=== PATIENT | female | born 1940 | race Caucasian/White ===

== ENCOUNTER 2018-11-01 08:35 | Inpatient (IN) ==
[2018-11-01] MEDS ORDERED: SOLU-MEDROL 125 MG IVP STA (09:10)
[2018-11-01] MEDS ORDERED: DUONEB NEB STA (09:10)
[2018-11-01] MEDS ORDERED: ZOSYN 3.375 GM 3.375 GM in SODIUM CHLORIDE 50 ML IV STA (10:30)
--- NOTE | 2018-11-01 10:33 | ED.PDOC ---
General ED Provider: Dr. EDWAR VALLADARES Chief Complaint: Shortness of Air Stated Complaint: COUGH SHORT OF AIR Time Seen by Physician: 08:45 (SEEN WITH STAFF ) Mode of Arrival: Walk-In Information Source: Patient Exam Limitations: No limitations Primary Care Provider: JAN GUERRA Nursing and Triage Documentation Reviewed and Agree: Yes Does patient meet sepsis criteria?: No System Inflammatory Response Syndrome: Not Applicable Sepsis Protocol: For patient's 13 years and over: Temp is 96.8 and below OR 101 and greater Pulse >90 BPM Resp >20/minute Acutely Altered Mental Status Are patient's symptoms suggestive of a new infection, such as: -Pneumonia -Skin, Soft Tissue -Endocarditis -UTI -Bone, Joint Infection -Implantable Device -Acute Abdominal Infection -Wound Infection -Meningitis -Blood Stream Catheter Infection -Unknown Respiratory Complaint Exam - Respiratory Complaint/Exam Onset/Duration: 1 WEEK Symptoms Are: Still present Timing: Constant Initial Severity: Mild Current Severity: Mild Location: Nose, Throat, Chest Character: Reports: Productive cough Aggravating: Reports: URI (SISTER WAS HOSPITALIZED FOR SAME ISSUE) Alleviating: Reports: Bronchodilators Associated Signs and Symptoms: Reports: Chills, URI, Nasal congestion. Denies: Rapid breathing, Dyspnea, Fever, Chest pain, Pleuritic chest pain, Wheezing, Hemoptysis, Dizziness, Calf pain, Calf swelling, Edema, Hoarseness, Sinus discomfort, Vomiting, Sore throat, Weight loss, Decreased oral intake, Increased thirst, Increased appetite, Increased urination History of Healthcare-Acquired Pneumonia: No Related Surgical History: Reports: None Pulmonary Embolism Risk Factors: None Review of Systems - Review Of Systems Constitutional: Reports: Malaise Eyes: Reports: No symptoms Ears, Nose, Mouth, Throat: Reports: No symptoms Respiratory: Reports: Cough, Short of air, Wheezing Cardiac: Reports: No symptoms GI: Reports: No symptoms : Reports: No symptoms Musculoskeletal: Reports: No symptoms Skin: Reports: No symptoms Neurological: Reports: No symptoms Endocrine: Reports: No symptoms Hematologic/Lymphatic: Reports: No symptoms All Other Systems: Reviewed and Negative Past Medical History - Past Medical History Previously Healthy: Yes Endocrine: Reports: DM 2, Dyslipidemia Cardiovascular: Reports: None Respiratory: Reports: None Hematological: Reports: None Gastrointestinal: Reports: None Genitourinary: Reports: None Neuro/Psych: Reports: None Musculoskeletal: Reports: None Cancer: Reports: None Last Menstrual Period: no - Surgical History General Surgical History: Reports: None - Family History Family History: Reports: None - Social History Smoking Status: Former smoker Hx Substance Use: No Alcohol Screening: None - Immunizations Tetanus Shot up to Date: No Physical Exam - Physical Exam Appearance: Ill-appearing Ill-appearing: Moderate Pain Distress: Mild Eyes: JOESPH, EOMI, Conjunctiva clear ENT: Ears normal, Nose normal, Oropharynx normal Respiratory: Breath sounds diminished, Rhonchi Cardiovascular: RRR, Pulses normal, No rub, No murmur GI/: Soft, Nontender, No masses, Bowel sounds normal, No Organomegaly Musculoskeletal: Normal strength, ROM intact, No edema, No calf tenderness Skin: Warm, Dry, Normal color Neurological: Sensation intact, Motor intact, Reflexes intact, Cranial nerves intact, Alert, Oriented Psychiatric: Affect appropriate, Mood appropriate Re-Evaluation - Re-Evaluation Time of Re-Evaluation: 11:00 Status: Improved Vital Signs Stable: Yes Pain Level: 0 Appearance: NAD Lungs: Clear Skin: Warm and Dry Neuro: Alert and Oriented X3 CV: RRR - Re-Evaluation Time of Re-Evaluation: 12:54 Status: Improved Vital Signs Stable: Yes Pain Level: 0 Appearance: NAD Skin: Warm and Dry Neuro: Alert and Oriented X3 CV: RRR Physician Notification - Case Discussed Physician Notified: pmd Time of Notification: 12:54 (admitt dual antibiotics and steroids per pmd ) Admit/Transition Orders Entered by ED Provider: Yes Admit To: Inpatient Critical Care Note - Critical Care Note Total Time (mins): 0 Course - Course Hematology/Chemistry: 11/01/18 09:23 11/01/18 09:23 Orders, Labs, Meds: Lab Review 11/01/18 11/01/18 11/01/18 09:23 09:23 09:23 WBC 28.96 H RBC 4.81 Hgb 13.8 Hct 43.0 MCV 89.4 MCH 28.7 MCHC 32.1 RDW Coeff of Minh 14.2 Plt Count 406 Neutrophils % (Manual) 82.0 H Band Neutrophils % 9.0 H Lymphocytes % (Manual) 7.0 L Monocytes % (Manual) 2.0 Anisocytosis Not present Puncture Site O2 Saturation ABG pH ABG pCO2 ABG pO2 ABG HCO3 ABG Total CO2 ABG Base Excess Rick Test FiO2 % Sodium 137.8 Potassium 3.98 Chloride 97.1 L Carbon Dioxide 29.7 Anion Gap 14.98 BUN 19.5 H Creatinine 0.68 Estimated GFR (MDRD) 83.00 BUN/Creatinine Ratio 28.67 Glucose 248.6 H Lactic Acid Calcium 9.41 Total Bilirubin 0.87 AST 81.2 H ALT 41.6 H Alkaline Phosphatase 207.6 H Total Creatine Kinase < 20.0 L Troponin I 0.025 Total Protein 7.73 Albumin 3.45 L Globulin 4.28 Albumin/Globulin Ratio 0.80 Procalcitonin 3.49 11/01/18 11/01/18 09:23 09:30 WBC RBC Hgb Hct MCV MCH MCHC RDW Coeff of Minh Plt Count Neutrophils % (Manual) Band Neutrophils % Lymphocytes % (Manual) Monocytes % (Manual) Anisocytosis Puncture Site L rad O2 Saturation 92.0 L ABG pH 7.443 ABG pCO2 34.8 L ABG pO2 61.0 L ABG HCO3 23.8 ABG Total CO2 25 ABG Base Excess 0 Rick Test + FiO2 % 21.0 Sodium Potassium Chloride Carbon Dioxide Anion Gap BUN Creatinine Estimated GFR (MDRD) BUN/Creatinine Ratio Glucose Lactic Acid 1.69 Calcium Total Bilirubin AST ALT Alkaline Phosphatase Total Creatine Kinase Troponin I Total Protein Albumin Globulin Albumin/Globulin Ratio Procalcitonin Orders Category Date Time Status ABG DRAW REQUEST Stat CARDIO 11/01/18 09:11 Completed EKG-(ED ONLY) Stat CARDIO 11/01/18 09:09 Completed NEBULIZER TREATMENT Stat CARDIO 11/01/18 09:10 Completed ED IV/MEDIPORT/POWERPORT .ONCE EMERGENCY 11/01/18 10:30 Active ABG Stat LAB 11/01/18 09:30 Completed BLOOD CULTURE Stat LAB 11/01/18 09:50 Received CBC W/ AUTO DIFF Stat LAB 11/01/18 09:23 Completed COMPREHENSIVE METABOLIC PANEL Stat LAB 11/01/18 09:23 Completed CREATINE KINASE Stat LAB 11/01/18 09:23 Completed LACTIC ACID Stat LAB 11/01/18 09:23 Completed MANUAL DIFFERENTIAL Stat LAB 11/01/18 09:23 Completed PROCALCITONIN Stat LAB 11/01/18 09:23 Completed TROPONIN I Stat LAB 11/01/18 09:23 Completed 0.9 % Sodium Chloride [Saline Flush] MEDS 11/01/18 10:30 Active 1 syr IVF PRN PRN Ipratropium/Albuterol Neb [Duoneb] MEDS 11/01/18 09:10 Discontinued 1 vial NEB ONCE STA Methylprednisolone Sod Succ/Pf [Solu-Medrol 125 mg] MEDS 11/01/18 09:10 Discontinued 125 mg IVP ONCE STA Piperacillin Sodium/Tazobactam [Zosyn 3.375 gm] 3.375 MEDS 11/01/18 10:30 Discontinued gm 0.9 % Sodium Chloride [Sodium Chloride] [address] CHEST W/O CONTRAST Stat RADS 11/01/18 09:10 Completed Medications Generic Name Dose Route Start Last Admin Trade Name Freq PRN Reason Stop Dose Admin Sodium Chloride 1 syr 11/01/18 10:30 Saline Flush IVF PRN PRN To flush IV Discontinued Medications Generic Name Dose Route Start Last Admin Trade Name Freq PRN Reason Stop Dose Admin Albuterol/Ipratropium 1 vial 11/01/18 09:10 11/01/18 09:26 Duoneb NEB 11/01/18 09:11 1 vial ONCE STA Administration Piperacillin Sod/Tazobactam 50 mls @ 50 mls/hr 11/01/18 10:30 11/01/18 11:06 Sod 3.375 gm/ Sodium Chloride IV 11/01/18 11:29 50 mls/hr ONCE STA Administration Methylprednisolone Sodium Succinate 125 mg 11/01/18 09:10 11/01/18 09:30 Solu-Medrol 125 Mg IVP 11/01/18 09:11 125 mg ONCE STA Administration Vital Signs: Temp Pulse Resp BP Pulse Ox 11/01/18 08:36 100.0 F H 111 H 28 H 160/75 H 88 L Departure - Departure Time of Disposition: 12:55 Disposition: ADMITTED INPATIENT Discharge Problem: Pneumonia Qualifiers: Pneumonia type: due to unspecified organism Laterality: unspecified laterality Lung location: unspecified part of lung Qualified Code(s): J18.9 - Pneumonia, unspecified organism Condition: Good Pt referred to PMD for follow-up: Yes IPMP verified?: No Additional Instructions: Please call your Family Physician as soon as possible to schedule a follow-up appointment. Allergies/Adverse Reactions: Allergies No Known Allergies Allergy (Unverified 11/01/18 08:55) Home Medications: Ambulatory Orders Alprazolam [Xanax] 0.25 mg PO BID 11/01/18 Aspirin [Adult Low Dose Aspirin EC] 81 mg PO DAILY 11/01/18 Hydrocodone/Acetaminophen [[place] 5-325 Tablet] 1 each PO TID PRN 11/01/18 Metformin HCl 500 mg PO DAILY 11/01/18 Simvastatin [Zocor] 40 mg PO BEDTIME 11/01/18 Disposition Discussed With: Patient, Family
--- NOTE | 2018-11-01 10:41 | CT ---
EXAM: CT chest without contra HISTORY: Cough COMPARISON: None TECHNIQUE: CT chest performed without intravenous contrast. Coronal and sagittal reformatted images obtained. FINDINGS: Thoracic inlet unremarkable. Heart normal in size. Coronary calcifications. No pericard ial effusion. Aorta normal in caliber. Moderate atherosclerosis. Small hiatal hernia. Evaluation for lymphadenopathy limited without contrast. Mildly enlarged subcarinal lymph node measures 1.3 cm, may be partially calcified. Additional calcified lymph nodes present, consistent with old granuloma tous disease. Visualized portion upper abdomen demonstrates no no acute abnormality. Bilateral ugo l cysts including probable hyperdense cyst left inferior kidney measuring up to 1.7 cm, incompletely imaged. No acute abnormalities of the bones. Degenerative change in the spine. Central airway lundberg nt. Severe emphysema. Consolidation in the right upper lobe, right middle lobe, right lower lobe, l ower lobe, greatest in the right upper lobe. Small right pleural effusion. No pneumothorax. IMPRESSION: 1. Multifocal bilateral consolidation, most consistent with pneumonia. 2. Severe emphysema. 3. Small right pleural effusion. 4. Mild mediastinal lymphadenopathy, may be partially calcified, nonspecific/indeterminate. 5. Coronary calcifications. Atherosclerosis. 6. Bilateral renal cysts including probable hemorrhagic cysts left kidney. Recommend correlation wi non-emergent ultrasound.
[2018-11-01] MEDS ORDERED: ZITHROMAX 500 MG in SODIUM CHLORIDE 250 ML IV STA (12:57)
[2018-11-01] MEDS ORDERED: HUMULIN R SUBCUT STA (13:03)
[2018-11-01 14:27] VITALS: BMI 17.5
[2018-11-01] MEDS: SOLU-MEDROL 40 MG IVP SCH ×2 (15:09→21:55)
[2018-11-01] MEDS: SODIUM CHLORIDE 1,000 ML IV SCH (15:09)
[2018-11-01] MEDS: HUMULIN R SUBCUT PRN ×2 (17:09→21:08)
[2018-11-01] MEDS: DUONEB NEB SCH ×2 (17:10→23:15)
[2018-11-01] MEDS ORDERED: ZOCOR PO SCH (21:00)
[2018-11-01] MEDS: XANAX PO SCH (21:04)
[2018-11-02] MEDS: DUONEB NEB SCH ×4 (04:30→22:35)
[2018-11-02] MEDS: SODIUM CHLORIDE 1,000 ML IV SCH ×2 (04:38→19:41)
[2018-11-02] MEDS: SOLU-MEDROL 40 MG IVP SCH (04:40)
[2018-11-02] MEDS: HUMULIN R SUBCUT PRN ×4 (05:54→21:07)
[2018-11-02] MEDS: ROCEPHIN 1 GM VIAL 1 GM in SODIUM CHLORIDE 50 ML IV SCH (08:45)
[2018-11-02] MEDS: ASPIRIN EC PO SCH (08:51)
[2018-11-02] MEDS: XANAX PO SCH ×2 (08:51→21:07)
[2018-11-02] MEDS: ZITHROMAX PO SCH (08:53)
--- NOTE | 2018-11-02 09:22 | PCM.PROG ---
Attending Provider: ATTENDING PROVIDER: Dr. JAN GUERRA This patient is seen with Mary Webb, Nurse Practitioner. DATE OF SERVICE: 11/02/18 SUBJECTIVE: This 78 year old WHITE/ F was hospitalized 11/01/18. The patient is resting comfortably. She is still short of breath with productive cough. White count is improved. No fever. REVIEW OF SYSTEMS: CONSTITUTIONAL: No night sweats. No fatigue, malaise, lethargy. No fever or chills. HEENT: Eyes: No visual changes. No eye pain. No eye discharge. ENT: No runny nose. No epistaxis. No sinus pain. No odynophagia. No congestion. RESPIRATORY: Cough, no congestion. No hemoptysis. Shortness of breath. CARDIOVASCULAR: No angina symptoms. No CHF symptoms. No atypical chest pain for CAD. No palpitations. No orthopnea.. GASTROINTESTINAL: No abdominal pain. No nausea or vomiting. No diarrhea or constipation. No hematemesis. No hematochezia. GENITOURINARY: No urgency. No frequency. No dysuria. No hematuria. No obstructive symptoms. No discharge. No pain. No significant abnormal bleeding. MUSCULOSKELETAL: No musculoskeletal pain; no joint swelling. NEUROLOGICAL: Awake, alert, oriented to time, place and person. No headache. No neck pain. No syncope. No seizures. No dizziness. PSYCHIATRIC: Not anxious. No depression. No suicidal thoughts. No homicidal thoughts. SKIN: No rash. No lesions. No wounds. ENDOCRINE: No unexplained weight loss. No weight gain. HEMATOLOGIC/LYMPHATIC: No anemia. No purpura. No petechiae. No prolonged or excessive bleeding. No palpable lymph nodes. PHYSICAL EXAMINATION: GENERAL: The patient is awake, alert and oriented, lying in bed in no distress. VITAL SIGNS: Temperature 97.8 F, Pulse 83, Respiratory Rate 16, BP 133/70, Pulse Ox 96% HEENT: Head normocephalic, atraumatic. Eyes: Extraocular muscles are intact. Pupils are equal, round and reactive to light and accommodation. Ears: No lesions. Nose appeared normal. Throat: No exudate or erythema. NECK: Supple. No JVD, no carotid bruit. No lymphadenopathy or thyromegaly. LUNGS: Severely diminished breath sounds. Clear to auscultation. Percussion note normal. Chest symmetrical. HEART: S1, S2, no S3. No murmurs. No cyanosis or clubbing. No ascites. Pulses: Dorsalis pedis and posterior tibial pulses +1 to +2 both sides. ABDOMEN: Soft. Non-tender. Bowel sounds active. No CVA tenderness. No mass felt. EXTREMITIES: No edema. Full range of motion of all extremities, equal. NEUROLOGIC: No focal deficit. Cranial nerves II through XII are grossly intact. No headache, no double vision or headache. SKIN: Not dry. Intact. Turgor-normal. LYMPHATIC: No palpable lymph nodes/no lymphedema. MUSCULOSKELETAL: Normal joints with no swelling. Muscle tone is normal. LAB REVIEW: 11/02/18 03:05 11/02/18 03:05 11/02/18 03:05: WBC 15.92 H D, RBC 4.00 L, Hgb 11.2 L, Hct 35.6 L D, MCV 89.0, MCH 28.0, MCHC 31.5 L, RDW Coeff of Minh 14.4, Plt Count 366, Immature Gran % ( Auto) 0.7, Neut % (Auto) 93.4, Lymph % (Auto) 4.7 L, [place] % (Auto) 1.0, Eos % ( Auto) 0.0, Baso % (Auto) 0.2, Immature Gran # (Auto) 0.1, Neut # (Auto) 14.9 H, Lymph # (Auto) 0.8, [place] # (Auto) 0.2 L, Eos # (Auto) 0.0, Baso # (Auto) 0.0 11/02/18 03:05: Sodium 135.4, Potassium 4.41, Chloride 99.8, Carbon Dioxide 26.3 , Anion Gap 13.71, BUN 24.3 H, Creatinine 0.62, Estimated GFR (MDRD) 93.00, BUN/ Creatinine Ratio 39.19, Glucose 426.4 H D, Calcium 8.12 L, Total Bilirubin 0.46 , AST 48.5 H D, ALT 37.9 H, Alkaline Phosphatase 155.3 H D, Total Creatine Kinase < 20.0 L, Troponin I < 0.012, Total Protein 6.13 L, Albumin 2.78 L, Globulin 3.35, Albumin/Globulin Ratio 0.82 11/01/18 19:19: Total Creatine Kinase < 20.0 L, Troponin I 0.014 11/01/18 09:30: Puncture Site L rad, O2 Saturation 92.0 L, ABG pH 7.443, ABG pCO2 34.8 L, ABG pO2 61.0 L, ABG HCO3 23.8, ABG Total CO2 25, ABG Base Excess 0 , Rick Test +, FiO2 % 21.0 11/01/18 09:23: Hepatitis A IgM Ab Negative, Hep Bs Antigen Negative, Hep B Core IgM Ab Negative, Hep C Ab Signal/Cutoff < 0.1 11/01/18 09:23: Lactic Acid 1.69 11/01/18 09:23: Procalcitonin 3.49 11/01/18 09:23: Sodium 137.8, Potassium 3.98, Chloride 97.1 L, Carbon Dioxide 29.7, Anion Gap 14.98, BUN 19.5 H, Creatinine 0.68, Estimated GFR (MDRD) 83.00, BUN/Creatinine Ratio 28.67, Glucose 248.6 H, Calcium 9.41, Total Bilirubin 0.87 , AST 81.2 H, ALT 41.6 H, Alkaline Phosphatase 207.6 H, Total Creatine Kinase < 20.0 L, Troponin I 0.025, Total Protein 7.73, Albumin 3.45 L, Globulin 4.28, Albumin/Globulin Ratio 0.80 11/01/18 09:23: WBC 28.96 H, RBC 4.81, Hgb 13.8, Hct 43.0, MCV 89.4, MCH 28.7, MCHC 32.1, RDW Coeff of Minh 14.2, Plt Count 406, Neutrophils % (Manual) 82.0 H, Band Neutrophils % 9.0 H, Lymphocytes % (Manual) 7.0 L, Monocytes % (Manual) 2.0 , Anisocytosis Not present ASSESSMENT: Please see below. 1. Bilateral pneumonia 2. COPD 3. Former smoker 4. Diabetes mellitus type 2 PLAN: 1. Zithromax 500mg daily for two days 2. Sputum culture 3. Increase Solu-Medrol 80mg Q 8 hours Plan and coordination of the patient's care discussed in the presence of International Relations Professor and nurse. SCRIBED BY: MELANIE ALMANZA Sql Ssrs Ssis Developer scribed while in presence of service performed by Dr. Guerra/Mary Webb APRN on 11/02/18 ([id number])
[2018-11-02] MEDS: SOLU-MEDROL 125 MG IVP SCH ×2 (12:40→21:06)
[2018-11-02] MEDS ORDERED: SOLU-MEDROL 40 MG IVP SCH (13:00)
[2018-11-03] MEDS: SOLU-MEDROL 125 MG IVP SCH ×3 (04:45→20:24)
[2018-11-03] MEDS: DUONEB NEB SCH ×4 (04:48→23:20)
[2018-11-03] MEDS: HUMULIN R SUBCUT PRN ×4 (05:22→20:25)
--- NOTE | 2018-11-03 08:11 | DI ---
EXAM: CHEST FRONTAL AND LATERAL VIEWS HISTORY: Pneumonia. COMPARISON: 01/05/2014 FINDINGS: Heart size remains within normal limits. Moderate atherosclerotic disease is suggested. There is diffuse, chronic appearing interstitial accentuation. Lungs are hyperinflated and there is relative lucency of the lung zones suggesting pulmonary emphysema. There is density within the right middle lobe and probably the lateral lower aspect of the right upper lobe. Density is moderate in d egree and consistent with pneumonia. There is a small right pleural effusion. No pneumothorax. IMPRESSION: 1. Moderate right pneumonia, background of chronic obstructive pulmonary disease. Follow-up chest i maging is recommended.
--- NOTE | 2018-11-03 08:48 | US ---
EXAM: Ultrasound abdomen limited right upper quadrant HISTORY: Abnormal labs COMPARISON: CT chest 11/01/2018 TECHNIQUE: Limited ultrasound abdomen right upper quadrant was performed FINDINGS: Visualized portion pancreas appears normal. Pancreatic duct measured at 2.7 mm, within no rmal limits. Portions of the pancreas obscured secondary to bowel gas shadowing. Liver diffusely in creased and echogenicity. Patient status post cholecystectomy. No biliary duct dilation with common bile duct measuring 0.5 cm. Right kidney measures 12.1 cm in length without hydronephrosis. Right renal cyst measuring simple anechoic right renal cyst measures 2.1 cm. IMPRESSION: 1. Echogenic liver may relate to hepatic steatosis and/or hepatic parenchymal disease. 2. Status post cholecystectomy. No biliary duct dilation. 3. Right renal cyst.
[2018-11-03] MEDS: SODIUM CHLORIDE 1,000 ML IV SCH ×2 (08:56→22:39)
[2018-11-03] MEDS: ZITHROMAX PO SCH (08:57)
[2018-11-03] MEDS: XANAX PO SCH ×2 (08:57→20:25)
[2018-11-03] MEDS: ROCEPHIN 1 GM VIAL 1 GM in SODIUM CHLORIDE 50 ML IV SCH (08:57)
[2018-11-03] MEDS: ASPIRIN EC PO SCH (08:57)
[2018-11-04] MEDS: DUONEB NEB SCH (04:35)
[2018-11-04] MEDS: SOLU-MEDROL 125 MG IVP SCH ×3 (04:51→20:48)
[2018-11-04] MEDS: HUMULIN R SUBCUT PRN ×4 (05:45→20:49)
--- NOTE | 2018-11-04 08:58 | PCM.PROG ---
Attending Provider: ATTENDING PROVIDER: Dr. JAN GUERRA This patient is seen with Mary Webb, Nurse Practitioner. DATE OF SERVICE: 11/04/18 SUBJECTIVE: This 78 year old WHITE/ F was hospitalized 11/01/18. The patient is resting comfortably. Still coughing and now complaining of diarrhea. She is extremely short of breath on exertion. REVIEW OF SYSTEMS: CONSTITUTIONAL: No night sweats. No fatigue, malaise, lethargy. No fever or chills. Weakness. HEENT: Eyes: No visual changes. No eye pain. No eye discharge. ENT: No runny nose. No epistaxis. No sinus pain. No odynophagia. No congestion. RESPIRATORY: Cough, no congestion. No hemoptysis. Shortness of breath. CARDIOVASCULAR: No angina symptoms. No CHF symptoms. No atypical chest pain for CAD. No palpitations. No orthopnea.. GASTROINTESTINAL: No abdominal pain. No nausea or vomiting. No diarrhea or constipation. No hematemesis. No hematochezia. GENITOURINARY: No urgency. No frequency. No dysuria. No hematuria. No obstructive symptoms. No discharge. No pain. No significant abnormal bleeding. MUSCULOSKELETAL: No musculoskeletal pain; no joint swelling. NEUROLOGICAL: Awake, alert, oriented to time, place and person. No headache. No neck pain. No syncope. No seizures. No dizziness. PSYCHIATRIC: Not anxious. No depression. No suicidal thoughts. No homicidal thoughts. SKIN: No rash. No lesions. No wounds. ENDOCRINE: No unexplained weight loss. No weight gain. HEMATOLOGIC/LYMPHATIC: No anemia. No purpura. No petechiae. No prolonged or excessive bleeding. No palpable lymph nodes. PHYSICAL EXAMINATION: GENERAL: The patient is awake, alert and oriented, lying in bed in no distress. VITAL SIGNS: Temperature 97.5 F, Pulse 87, Respiratory Rate 18, BP 158/86, Pulse Ox 91% HEENT: Head normocephalic, atraumatic. Eyes: Extraocular muscles are intact. Pupils are equal, round and reactive to light and accommodation. Ears: No lesions. Nose appeared normal. Throat: No exudate or erythema. NECK: Supple. No JVD, no carotid bruit. No lymphadenopathy or thyromegaly. LUNGS: Severely diminished breath sounds. Clear to auscultation. Percussion note normal. Chest symmetrical. HEART: S1, S2, no S3. No murmurs. No cyanosis or clubbing. No ascites. Pulses: Dorsalis pedis and posterior tibial pulses +1 to +2 both sides. ABDOMEN: Soft. Non-tender. Bowel sounds active. No CVA tenderness. No mass felt. EXTREMITIES: No edema. Full range of motion of all extremities, equal. NEUROLOGIC: No focal deficit. Cranial nerves II through XII are grossly intact. No headache, no double vision or headache. SKIN: Not dry. Intact. Turgor-normal. LYMPHATIC: No palpable lymph nodes/no lymphedema. MUSCULOSKELETAL: Normal joints with no swelling. Muscle tone is normal. LAB REVIEW: 11/04/18 05:00 11/04/18 05:00 11/04/18 05:00: Sodium 136.7, Potassium 4.78, Chloride 103.7, Carbon Dioxide 24.1, Anion Gap 13.68, BUN 30.0 H, Creatinine 0.60, Estimated GFR (MDRD) 96.00, BUN/Creatinine Ratio 50.00, Glucose 304.8 H, Calcium 8.63, Total Bilirubin 0.44 , AST 109.4 H D, ALT 123.4 H D, Alkaline Phosphatase 109.5, Total Protein 5.72 L , Albumin 2.68 L, Globulin 3.04, Albumin/Globulin Ratio 0.88 11/04/18 05:00: WBC 13.27 H, RBC 4.17 L, Hgb 11.9 L, Hct 37.6, MCV 90.2, MCH 28.5, MCHC 31.6 L, RDW Coeff of Minh 14.6, Plt Count 439, Immature Gran % (Auto) 1.1, Neut % (Auto) 90.7, Lymph % (Auto) 6.6 L, [place] % (Auto) 1.4, Eos % (Auto) 0.0, Baso % (Auto) 0.2, Immature Gran # (Auto) 0.1, Neut # (Auto) 12.0 H, Lymph # (Auto) 0.9, [place] # (Auto) 0.2 L, Eos # (Auto) 0.0, Baso # (Auto) 0.0 11/03/18 04:10: Procalcitonin 1.31 ASSESSMENT: Please see below. 1. Bilateral pneumonia 2. Shortness of breath 3. COPD 4. Diarrhea. PLAN: 1. Repeat chest x-ray 2. Xopenex Q 6 hours scheduled 3. Pulmicort 0.5mg twice a day scheduled 4. Discontinue DUO NEBS 5. Discontinue IV fluids 6. Discontinue Telemetry Plan and coordination of the patient's care discussed in the presence of Ornamental Iron Worker and nurse. SCRIBED BY: Vladimir SILVA scribed while in presence of service performed by Dr. Guerra/Mary Webb APRN on 11/04/18 ([id number])
[2018-11-04] MEDS: ROCEPHIN 1 GM VIAL 1 GM in SODIUM CHLORIDE 50 ML IV SCH (09:03)
[2018-11-04] MEDS: XANAX PO SCH ×2 (09:03→20:48)
[2018-11-04] MEDS: ASPIRIN EC PO SCH (09:03)
[2018-11-04] MEDS: XOPENEX 1.25 MG NEB SCH ×3 (11:06→22:55)
--- NOTE | 2018-11-04 11:12 | HP ---
DATE OF SERVICE: 11/01/18 HISTORY OF PRESENT ILLNESS: This 78-year-old white female who presents to the emergency room with cough and congestion. PAST MEDICAL HISTORY: Hypertension Dyslipidemia Diabetes mellitus Type 2 COPD - she quit smoking in 2016 Anemia Degenerative joint disease of the spine Vitamin D deficiency History of osteoporosis Anxiety Chronic back pain PAST SURGICAL HISTORY: Cholecystectomy History of small bowel obstruction Benign breast biopsy Contracture repair on the right hand by Dr. Quevedo in 2012 REVIEW OF SYSTEMS: CONSTITUTIONAL: Fatigue. No night sweats. No malaise, lethargy. No fever or chills. HEENT: Eyes: No visual changes. No eye pain. No eye discharge. ENT: No runny nose. No epistaxis. No sinus pain. No sore throat. No odynophagia. No ear pain. No congestion. RESPIRATORY: Positive for cough, shortness of breath. No congestion. No hemoptysis. CARDIOVASCULAR: No angina symptoms. No CHF symptoms. No atypical chest pain for CAD. No palpitations. No PND. No orthopnea. GASTROINTESTINAL: No abdominal pain. No nausea or vomiting. No diarrhea or constipation. No hematemesis. No hematochezia. GENITOURINARY: No urgency. No frequency. No dysuria. No hematuria. No obstructive symptoms. No discharge. No pain. No significant abnormal bleeding. MUSCULOSKELETAL: No musculoskeletal pain. No joint swelling. No arthritis. NEUROLOGICAL: No headache. No neck pain. No syncope. No seizures. No dizziness. PSYCHIATRIC: Not anxious. No depression. No suicidal thoughts. No homicidal thoughts. SKIN: No rash. No lesions. No wounds. ENDOCRINE: No unexplained weight loss. No weight gain. HEMATOLOGIC/LYMPHATIC: No anemia. No purpura. No petechiae. No prolonged or excessive bleeding. No palpable lymph nodes. PERSONAL/FAMILY/SOCIAL HISTORY: She is , a former smoker, quit in 2016. No alcohol or ilicit drug use. She lives at home by herelf. MEDICATIONS: (HOME) Alprazolam 0.25 mg p.o. b.i.d. Simvastatin 40 mg p.o. bedtime Metformin 500 mg p.o. daily Aspirin 81 mg p.o. daily Hydrocodone/Acetaminophen one each p.o. t.i.d. p.r.n. ALLERGIES: NKDA PHYSICAL EXAMINATION: HEENT: Head normocephalic, atraumatic. Eyes: Extraocular muscles are intact. Pupils are equal, round and reactive to light and accommodation. Ears: No lesions. Nose appeared normal. Throat: No exudate or erythema. NECK: Supple. No JVD, no carotid bruit. No lymphadenopathy or thyromegaly. LUNGS: Diminished breath sounds with bilateral inspiratory and expiratory wheezing in mild respiratory distress. Clear to auscultation. Percussion note normal. Chest symmetrical. HEART: S1, S2, no S3. No murmurs. No cyanosis or clubbing. No ascites. Pulses: Dorsalis pedis and posterior tibial pulses +1 to +2 bilaterally. ABDOMEN: Soft. Nontender. Bowel sounds active. No CVA tenderness. No mass felt. EXTREMITIES: No leg edema. Full range of motion of all extremities, equal. NEUROLOGIC: No focal deficit. Cranial nerves II through XII are grossly intact. No headache, no double vision or headache. SKIN: Not dry. Intact. Turgor - normal. LYMPHATIC: No palpable lymph nodes/no lymphedema. MUSCULOSKELETAL: Normal joints with no swelling. Muscle tone is normal. ABGs on room air: pH 7.443, pc02 34.8, p02 61, base excess of 0. Bicarb 23.8, TC02 25, 02 sat 92. Sodium 137, potassium 3.9, BUN 19, creatinine 0.68, glucose 248, AST 81, ALT 41. Troponin less than 0.02. Alkaline phosphatase 207, white count 28,000, hemoglobin 13.8, hematocrit 43, platelets 406. CT of the chest shows multifocal bilateral consolidation consistent with pneumonia, severe emphysema, right pleural effusion, mild mediastinal lymphadenopathy, partially calcified, atheroclerosis, bilateral benign renal cyst. EKG shows sinus tachycardia. ASSESSMENT: 1. BILATERAL PNEUMONIA 2. SHORTNESS OF BREATH 3. SEVERE COPD 4. FORMER SMOKER 5. HYPERTENSION PLAN: 1. We will admit. 2. Routine telemetry orders. 3. CBC, CMP daily. 4. Rocephin 1 gm IV daily. 5. Zithromax 500 mg p.o. daily times three days. 6. Solu-Cortef 125 mg IV q.8hr BRODERICK. 7. Xopenex neb treatments t.i.d. BRODERICK. 8. Normal Saline at 75 cc/hr IV. 9. UA. 10. Continue all home medications. 11. Oxygen 1 to 2L as needed. 12. We will follow closely. TIME SPENT: More than 70 minutes. MTDD
--- NOTE | 2018-11-04 14:30 | DI ---
EXAM: Chest two views HISTORY: Pneumonia COMPARISON: 11/02/2018 TECHNIQUE: Two views of the chest were performed FINDINGS: Patchy consolidation in the right mid and lower lung appears unchanged. New mild left bas ilar atelectasis and/or consolidation. Small bilateral pleural effusions. Emphysematous change. No visible pneumothorax. Heart normal in size. Mediastinal contour unchanged, noting atherosclerosis. IMPRESSION: 1. Consolidation in the right lung appears unchanged, likely representing pneumonia. New mild left basilar atelectasis and/or pneumonia. Recommend short-term radiographic follow-up to resolution. 2. Small bilateral pleural effusions. 3. Emphysema
[2018-11-04] MEDS: PULMICORT 0.5 MG/2 ML NEB SCH (17:00)
[2018-11-05] MEDS: PULMICORT 0.5 MG/2 ML NEB SCH ×2 (04:34→17:02)
[2018-11-05] MEDS: XOPENEX 1.25 MG NEB SCH ×4 (04:34→23:40)
[2018-11-05] MEDS: SOLU-MEDROL 125 MG IVP SCH ×3 (04:51→21:10)
[2018-11-05] MEDS: HUMULIN R SUBCUT PRN ×4 (06:10→21:13)
[2018-11-05] MEDS ORDERED: IMODIUM PO PRN (07:59)
[2018-11-05] MEDS ORDERED: IMODIUM PO STA (07:59)
[2018-11-05] MEDS: NORCO 5-325 PO PRN (08:04)
--- NOTE | 2018-11-05 08:28 | PCM.PROG ---
Attending Provider: ATTENDING PROVIDER: Dr. JAN GUERRA DATE OF SERVICE: 11/05/18 SUBJECTIVE: This 78 year old WHITE/ F was hospitalized 11/01/18 with pneumonia clinically the patient has improved. She is afebrile. White blood count is 12, 000. REVIEW OF SYSTEMS: CONSTITUTIONAL: No night sweats. No fatigue, malaise, lethargy. No fever or chills. HEENT: Eyes: No visual changes. No eye pain. No eye discharge. ENT: No runny nose. No epistaxis. No sinus pain. No odynophagia. No congestion. RESPIRATORY: Cough, Congestion. No hemoptysis. No shortness of breath. CARDIOVASCULAR: No angina symptoms. No CHF symptoms. No atypical chest pain for CAD. No palpitations. No orthopnea. Pleuritic type of pain. GASTROINTESTINAL: No abdominal pain. No nausea or vomiting. Diarrhea. No hematemesis. No hematochezia. GENITOURINARY: No urgency. No frequency. No dysuria. No hematuria. No obstructive symptoms. No discharge. No pain. No significant abnormal bleeding. MUSCULOSKELETAL: No musculoskeletal pain; no joint swelling. NEUROLOGICAL: Awake, alert, oriented to time, place and person. No headache. No neck pain. No syncope. No seizures. No dizziness. PSYCHIATRIC: Not anxious. No depression. No suicidal thoughts. No homicidal thoughts. SKIN: No rash. No lesions. No wounds. ENDOCRINE: No unexplained weight loss. No weight gain. HEMATOLOGIC/LYMPHATIC: No anemia. No purpura. No petechiae. No prolonged or excessive bleeding. No palpable lymph nodes. PHYSICAL EXAMINATION: GENERAL: The patient is awake, alert and oriented to time, place and person, lying in bed in no distress. VITAL SIGNS: Temperature 97.4 F, Pulse 86, Respiratory Rate 16, BP 149/83, Pulse Ox 92% HEENT: Head normocephalic, atraumatic. Eyes: Extraocular muscles are intact. Pupils are equal, round and reactive to light and accommodation. Ears: No lesions. Nose appeared normal. Throat: No exudate or erythema. NECK: Supple. No JVD, no carotid bruit. No lymphadenopathy or thyromegaly. LUNGS: Decreased breath sounds. Clear to auscultation. Percussion note normal. Chest symmetrical. HEART: S1, S2, no S3. No murmurs. No cyanosis or clubbing. No ascites. Pulses: Dorsalis pedis and posterior tibial pulses +1 to +2 both sides. ABDOMEN: Soft. Non-tender. Bowel sounds active. No CVA tenderness. No mass felt. EXTREMITIES: No edema. Full range of motion of all extremities, equal. NEUROLOGIC: No focal deficit. Cranial nerves II through XII are grossly intact. No headache, no double vision or headache. SKIN: Warm and dry. Intact. Turgor-normal. LYMPHATIC: No palpable lymph nodes/no lymphedema. MUSCULOSKELETAL: Normal joints with no swelling. Muscle tone is normal. LAB REVIEW: 11/05/18 05:00 11/05/18 05:00 11/05/18 05:00: Sodium 136.0, Potassium 4.26, Chloride 101.6, Carbon Dioxide 27.4, Anion Gap 11.26, BUN 26.4 H, Creatinine 0.58 L, Estimated GFR (MDRD) 100.00, BUN/Creatinine Ratio 45.51, Glucose 204.4 H D, Calcium 8.58, Total Bilirubin 0.34, AST 42.3 H D, ALT 96.9 H, Alkaline Phosphatase 99.0, Total Protein 5.42 L, Albumin 2.58 L, Globulin 2.84, Albumin/Globulin Ratio 0.90 11/05/18 05:00: WBC 12.00 H, RBC 4.25, Hgb 11.9 L, Hct 37.6, MCV 88.5, MCH 28.0 , MCHC 31.6 L, RDW Coeff of Minh 14.5, Plt Count 436, Immature Gran % (Auto) 1.3 , Neut % (Auto) 88.0, Lymph % (Auto) 7.0 L, [place] % (Auto) 3.5, Eos % (Auto) 0.0 , Baso % (Auto) 0.2, Immature Gran # (Auto) 0.2, Neut # (Auto) 10.6 H, Lymph # ( Auto) 0.8, [place] # (Auto) 0.4, Eos # (Auto) 0.0, Baso # (Auto) 0.0 ASSESSMENT: Please see below. 1. Pneumonia, clinically resolved chest x-ray unchanged 2. History of smoking PLAN: 1. Discontinue Rocephin 2. Started Omnicef 3. Imodium two now and one three times a day Plan and coordination of the patient's care discussed in the presence of [employer] Laboratory Assistant and nurse. SCRIBED BY: MELANIE ALMANZA Fireworks Maker scribed while in presence of service performed by Dr. JAN GUERRA on 11/05/18 ([id number])
[2018-11-05] MEDS: OMNICEF PO SCH ×2 (08:51→21:10)
[2018-11-05] MEDS: XANAX PO SCH ×2 (08:52→21:10)
[2018-11-05] MEDS: ASPIRIN EC PO SCH (08:52)
[2018-11-06] MEDS: SOLU-MEDROL 125 MG IVP SCH ×3 (04:23→20:33)
[2018-11-06] MEDS: PULMICORT 0.5 MG/2 ML NEB SCH ×2 (04:30→18:03)
[2018-11-06] MEDS: XOPENEX 1.25 MG NEB SCH ×4 (04:30→22:50)
[2018-11-06] MEDS: HUMULIN R SUBCUT PRN ×4 (06:09→20:34)
[2018-11-06] MEDS: XANAX PO SCH ×2 (08:29→20:35)
[2018-11-06] MEDS: NORCO 5-325 PO PRN ×2 (08:29→20:44)
[2018-11-06] MEDS: OMNICEF PO SCH ×2 (08:29→20:35)
[2018-11-06] MEDS: ASPIRIN EC PO SCH (08:29)
[2018-11-07] MEDS: PULMICORT 0.5 MG/2 ML NEB SCH ×2 (04:34→17:38)
[2018-11-07] MEDS: XOPENEX 1.25 MG NEB SCH ×4 (04:34→22:39)
[2018-11-07] MEDS: SOLU-MEDROL 125 MG IVP SCH ×3 (05:13→20:28)
[2018-11-07] MEDS: HUMULIN R SUBCUT PRN ×4 (05:36→20:29)
[2018-11-07] MEDS: XANAX PO SCH ×2 (08:34→20:27)
[2018-11-07] MEDS: ASPIRIN EC PO SCH (08:34)
[2018-11-07] MEDS: OMNICEF PO SCH ×2 (08:34→20:26)
[2018-11-08] MEDS: PULMICORT 0.5 MG/2 ML NEB SCH ×2 (04:33→17:13)
[2018-11-08] MEDS: XOPENEX 1.25 MG NEB SCH ×3 (04:33→17:55)
[2018-11-08] MEDS: SOLU-MEDROL 125 MG IVP SCH (05:12)
[2018-11-08] MEDS: HUMULIN R SUBCUT PRN ×4 (05:49→20:37)
[2018-11-08] MEDS ORDERED: LASIX IVP STA (08:02)
[2018-11-08] MEDS: XANAX PO SCH ×2 (08:30→20:37)
[2018-11-08] MEDS: ASPIRIN EC PO SCH (08:30)
[2018-11-08] MEDS: PREDNISONE PO SCH ×2 (08:30→17:11)
--- NOTE | 2018-11-08 09:54 | ECHO2D ---
Date of Exam: 11/07/18 Ordering Physician: DR. JAN GUERRA Room #: [id number] Reason for Echo: SOB M-Mode Normal Adult Results LV Dimensions Normal Adult Results AoV Opening excursions >1.6 >1.6 LVEDD-base- 3.5-5.8 4.2 Ao root dimensions 2.0-3.7 3.2 LVESD-base- 3.1-4.6 L. Atrium dimensions 1.9-3.8 2.8 Post. Wall thickness 0.8-1.1 1.2 IV septum (thickness) 0.7-1.2 1.3 Post. Wall excursion 0.72-1.3 NORMAL Septal motion 0.6 Systolic motion R. Ventricular cavity 1.5-2.0 3.0 LVEF 60% 46% Paradoxical septal wall motion NORMAL 2-D : 2-D M Mode Echocardiogram was performed using apical four chamber and left parasternal long and short axis views. Mitral, tricuspid and aortic valves appear to be normal. Contractility of the left ventricle seems to be normal, so is the cavity size. Left atrial cavity size and aortic root appear to be normal. There is no pericardial effusion. There is no thrombus noted in the left ventricular or left aortic cavity. No mitral valve prolapse noted. ENLARGED RIGHT VENTRICLE CAVITY M-MODE: MV: E >A WAVE AV: NORMAL TV: NORMAL PV: NORMAL CHAMBER SIZE: ENLARGED RIGHT VENTRICLE CAVITY WALL MOTION: HYPOKINETIC SEPTUM PERICARDIUM: NORMAL INTERPRETATION: 1. LEFT VENTRICULAR HYPERTROPHY 2. ENLARGED RIGHT VENTRICLE CAVITY 3. EVIDENCE OF STIFF LEFT VENTRICLE WITH EJECTION FRACTION 46% 4. NORMAL VALVES MTDD
--- NOTE | 2018-11-08 09:57 | PCM.PROG ---
Attending Provider: ATTENDING PROVIDER: Dr. JAN GUERRA The patient is seen with Mary Lyons, Nurse Practitioner DATE OF SERVICE: 11/08/18 SUBJECTIVE: This 78 year old WHITE/ F was hospitalized 11/01/18. The patient is lying in bed resting comfortably. She is still significantly short of breath with minimal exertion. She has a productive cough. No fever. White count is down. She is eating well. REVIEW OF SYSTEMS: CONSTITUTIONAL: No night sweats. No fatigue, malaise, lethargy. No fever or chills. HEENT: Eyes: No visual changes. No eye pain. No eye discharge. ENT: No runny nose. No epistaxis. No sinus pain. No odynophagia. No congestion. RESPIRATORY: Cough and shortness of breath. No hemoptysis. CARDIOVASCULAR: No angina symptoms. No CHF symptoms. No atypical chest pain for CAD. No palpitations. No orthopnea.. GASTROINTESTINAL: No abdominal pain. No nausea or vomiting. No diarrhea or constipation. No hematemesis. No hematochezia. GENITOURINARY: No urgency. No frequency. No dysuria. No hematuria. No obstructive symptoms. No discharge. No pain. No significant abnormal bleeding. MUSCULOSKELETAL: No musculoskeletal pain; no joint swelling. NEUROLOGICAL: Awake, alert, oriented to time, place and person. No headache. No neck pain. No syncope. No seizures. No dizziness. PSYCHIATRIC: Not anxious. No depression. No suicidal thoughts. No homicidal thoughts. SKIN: No rash. No lesions. No wounds. ENDOCRINE: No unexplained weight loss. No weight gain. HEMATOLOGIC/LYMPHATIC: No anemia. No purpura. No petechiae. No prolonged or excessive bleeding. No palpable lymph nodes. PHYSICAL EXAMINATION: GENERAL: The patient is awake, alert and oriented, lying/sitting in bed in no distress. VITAL SIGNS: Temperature 97.8 F, Pulse 70, Respiratory Rate 20, BP 132/70, Pulse Ox 95% HEENT: Head normocephalic, atraumatic. Eyes: Extraocular muscles are intact. Pupils are equal, round and reactive to light and accommodation. Ears: No lesions. Nose appeared normal. Throat: No exudate or erythema. NECK: Supple. No JVD, no carotid bruit. No lymphadenopathy or thyromegaly. LUNGS: Diminished breath sounds. Clear to auscultation. Percussion note normal. Chest symmetrical. HEART: S1, S2, no S3. No murmurs. No cyanosis or clubbing. No ascites. Pulses: Dorsalis pedis and posterior tibial pulses +1 to +2 both sides. ABDOMEN: Soft. Non-tender. Bowel sounds active. No CVA tenderness. No mass felt. EXTREMITIES: Trace leg edema. Full range of motion of all extremities, equal. NEUROLOGIC: No focal deficit. Cranial nerves II through XII are grossly intact. No headache, no double vision or headache. SKIN: Warm and dry. Intact. Turgor-normal. LYMPHATIC: No palpable lymph nodes/no lymphedema. MUSCULOSKELETAL: Normal joints with no swelling. Muscle tone is normal. LAB REVIEW: 11/08/18 04:20 11/08/18 04:20 11/08/18 04:20: Sodium 133.5 L, Potassium 4.62, Chloride 98.3, Carbon Dioxide 29.9, Anion Gap 9.92, BUN 27.4 H, Creatinine 0.53 L, Estimated GFR (MDRD) 111.00 , BUN/Creatinine Ratio 51.69, Glucose 150.9 H D, Calcium 8.00 L, Total Bilirubin 0.43, AST 22.0, ALT 46.5 H, Alkaline Phosphatase 62.0, Total Protein 4.60 L, Albumin 2.28 L, Globulin 2.32, Albumin/Globulin Ratio 0.98 11/08/18 04:20: WBC 10.07, RBC 4.12 L, Hgb 11.7 L, Hct 36.6 L, MCV 88.8, MCH 28.4, MCHC 32.0, RDW Coeff of Minh 14.6, Plt Count 429, Immature Gran % (Auto) 1.8, Neut % (Auto) 86.6, Lymph % (Auto) 8.1 L, [place] % (Auto) 3.3, Eos % (Auto) 0.0, Baso % (Auto) 0.2, Immature Gran # (Auto) 0.2, Neut # (Auto) 8.7 H, Lymph # (Auto) 0.8, [place] # (Auto) 0.3 L, Eos # (Auto) 0.0, Baso # (Auto) 0.0 ASSESSMENT: Please see below. 1. Bilateral pneumonia - seems to be improving. 2. Leg edema. 3. COPD. PLAN: 1. Lasix 20 mg IV. 2. D/C IV Solu-Medrol. 3. Prednisone 20 mg b.i.d. 4. Will do Three-Step today. Plan and coordination of the patient's care discussed in the presence of Legal Document Specialist and nurse. CONDITION: Stable SCRIBED BY: ANA DASILVA Repairer Pump scribed while in presence of service performed by Dr. JAN GUERRA/MARY LYONS APRN ON 11/08/18 ([id number])
--- NOTE | 2018-11-08 14:35 | PN ---
DATE OF SERVICE: 11/01/18 SUBJECTIVE: The patient, Room 118, was admitted today through the emergency room with acute bronchitis, severe chronic lung disease, possibility of pneumonia. The patient' s blood gases are acceptable with oxygen saturation 96% on 2L. The patient doesn 't seem to be in distress. She is a heavy smoker. PHYSICAL EXAMINATION: HEENT: Head normocephalic, atraumatic. Eyes: Extraocular muscles are intact. Pupils are equal, round and reactive to light and accommodation. Ears: No lesions. Nose appeared normal. Throat: No exudate or erythema. NECK: Supple. No JVD, no carotid bruit. No lymphadenopathy or thyromegaly. LUNGS: Decreased breath sounds. Clear to auscultation. Percussion note normal. Chest symmetrical. HEART: S1, S2, no S3. No murmurs. No cyanosis or clubbing. No ascites. Pulses: Dorsalis pedis and posterior tibial pulses +1 to +2 bilaterally. ABDOMEN: Soft. Nontender. Bowel sounds active. No CVA tenderness. No mass felt. EXTREMITIES: No edema. Full range of motion of all extremities, equal. NEUROLOGIC: No focal deficit. Cranial nerves II through XII are grossly intact. No headache, no double vision or headache. SKIN: Not dry. Intact. Turgor - normal. LYMPHATIC: No palpable lymph nodes/no lymphedema. MUSCULOSKELETAL: Normal joints with no swelling. Muscle tone is normal. ASSESSMENT: 1. Acute bronchitis with severe chronic lung disease. PLAN: 1. Counseling for smoking done. 2. The patient is going to be on IV steroids, nebs treatment and IV antibiotics. 3. May need echocardiogram to evaluate LV function. TIME SPENT: More than 30 minutes. Plan and coordination of the patient's care discussed in the presence of nurse. KULDIP
--- NOTE | 2018-11-08 14:39 | PN ---
DATE OF SERVICE: 11/02/18, ROOM 118 SUBJECTIVE: The patient says she is feeling better, admitted with bilateral pneumonia. Her cough is much less. REVIEW OF SYSTEMS: CONSTITUTIONAL: No night sweats. No fatigue, malaise, lethargy. No fever or chills. HEENT: Eyes: No visual changes. No eye pain. No eye discharge. ENT: No runny nose. No epistaxis. No sinus pain. No sore throat. No odynophagia. No congestion. RESPIRATORY: Less cough and congestion. No hemoptysis. No shortness of breath. CARDIOVASCULAR: No angina symptoms. No CHF symptoms. No atypical chest pain for CAD. No palpitations. No PND. No orthopnea. GASTROINTESTINAL: No abdominal pain. No nausea or vomiting. No diarrhea or constipation. No hematemesis. No hematochezia. GENITOURINARY: No urgency. No frequency. No dysuria. No hematuria. No obstructive symptoms. No discharge. No pain. No significant abnormal bleeding. MUSCULOSKELETAL: No musculoskeletal pain; no joint swelling. NEUROLOGICAL: No headache. No neck pain. No syncope. No seizures. No dizziness. PSYCHIATRIC: Not anxious. No depression. No suicidal thoughts. No homicidal thoughts. SKIN: No rash. No lesions. No wounds. ENDOCRINE: No unexplained weight loss. No weight gain. HEMATOLOGIC/LYMPHATIC: No anemia. No purpura. No petechiae. No prolonged or excessive bleeding. No palpable lymph nodes. PHYSICAL EXAMINATION: HEENT: Head normocephalic, atraumatic. Eyes: Extraocular muscles are intact. Pupils are equal, round and reactive to light and accommodation. Ears: No lesions. Nose appeared normal. Throat: No exudate or erythema. NECK: Supple. No JVD, no carotid bruit. No lymphadenopathy or thyromegaly. LUNGS: Decreased breath sounds. Clear to auscultation. Percussion note normal. Chest symmetrical. HEART: S1, S2, no S3. No murmurs. No cyanosis or clubbing. No ascites. Pulses: Dorsalis pedis and posterior tibial pulses +1 to +2 bilaterally. ABDOMEN: Soft. Nontender. Bowel sounds active. No CVA tenderness. No mass felt. EXTREMITIES: No edema. Full range of motion of all extremities, equal. NEUROLOGIC: No focal deficit. Cranial nerves II through XII are grossly intact. No headache, no double vision or headache. SKIN: Not dry. Intact. Turgor - normal. LYMPHATIC: No palpable lymph nodes/no lymphedema. MUSCULOSKELETAL: Normal joints with no swelling. Muscle tone is normal. PLAN: 1. Continue IV antibiotics, steroids, nebs. 2. Strongly advised to quit smoking. Counseling for smoking done. 3. The patient was seen and examined with the nurse practitioner. TIME SPENT: More than 30 minutes. Plan and coordination of the patient's care discussed in the presence of nurse. KULDIP
--- NOTE | 2018-11-08 14:50 | PN ---
DATE OF SERVICE: 11/03/18 SUBJECTIVE: 78-year-old white female hospitalized with pneumonia. The patient's condition is stable. REVIEW OF SYSTEMS: CONSTITUTIONAL: No night sweats. No fatigue, malaise, lethargy. No fever or chills. HEENT: Eyes: No visual changes. No eye pain. No eye discharge. ENT: No runny nose. No epistaxis. No sinus pain. No sore throat. No odynophagia. No congestion. RESPIRATORY: No cough, no congestion. No hemoptysis. No shortness of breath. CARDIOVASCULAR: No angina symptoms. No CHF symptoms. No atypical chest pain for CAD. No palpitations. No PND. No orthopnea. GASTROINTESTINAL: Appetite improving. No abdominal pain. No nausea or vomiting. No diarrhea or constipation. No hematemesis. No hematochezia. GENITOURINARY: No urgency. No frequency. No dysuria. No hematuria. No obstructive symptoms. No discharge. No pain. No significant abnormal bleeding. MUSCULOSKELETAL: No musculoskeletal pain; no joint swelling. NEUROLOGICAL: No headache. No neck pain. No syncope. No seizures. No dizziness. PSYCHIATRIC: Not anxious. No depression. No suicidal thoughts. No homicidal thoughts. SKIN: No rash. No lesions. No wounds. ENDOCRINE: No unexplained weight loss. No weight gain. HEMATOLOGIC/LYMPHATIC: No anemia. No purpura. No petechiae. No prolonged or excessive bleeding. No palpable lymph nodes. PHYSICAL EXAMINATION: GENERAL: The patient is oriented to time, place and person. VITAL SIGNS: Temperature 97.6, pulse 90, respiratory rate 16, blood pressure 149/70, pulse ox 92%. HEENT: Head normocephalic, atraumatic. Eyes: Extraocular muscles are intact. Pupils are equal, round and reactive to light and accommodation. Ears: No lesions. Nose appeared normal. Throat: No exudate or erythema. NECK: Supple. No JVD, no carotid bruit. No lymphadenopathy or thyromegaly. LUNGS: Decreased breath sounds. Clear to auscultation. Percussion note normal. Chest symmetrical. HEART: S1, S2, no S3. No murmurs. No cyanosis or clubbing. No ascites. Pulses: Dorsalis pedis and posterior tibial pulses +1 to +2 bilaterally. ABDOMEN: Soft. Nontender. Bowel sounds active. No CVA tenderness. No mass felt. EXTREMITIES: No edema. Full range of motion of all extremities, equal. NEUROLOGIC: No focal deficit. Cranial nerves II through XII are grossly intact. No headache, no double vision or headache. SKIN: Not dry. Intact. Turgor - normal. LYMPHATIC: No palpable lymph nodes/no lymphedema. MUSCULOSKELETAL: Normal joints with no swelling. Muscle tone is normal. LABS: Hemoglobin 10.9, hematocrit 33. WBC 15,000, normal differential. Creatinine 0.6 , BUN 30. ASSESSMENT: 1. Pneumonia, clinically seems to be resolving. 2. Appetite is improving. 3. Chronic anemia. 4. Blood sugar PLAN: 1. Counseling for smoking done. 2. Steroids, will monitor. TIME SPENT: More than 30 minutes. Plan and coordination of the patient's care discussed in the presence of nurse. KULDIP
--- NOTE | 2018-11-08 16:31 | RS.OTINEVL ---
Subjective - Patient information Date of Evaluation: 11/08/18 Diagnosis: Pneumonia, SOA PRECAUTIONS: At risk for falls, SOA and cough Usual Living Arrangement: STEP SON LIVES WITH PATIENT Living Arrangement Comments: Pt lives in her house and her step son lives with her and the dog. Home Environment: House Medical History: Hypertension, COPD, Emphysema Medical History Comments:: Hysterectomy, SOA and Cough, Gallbladder removed, endocrine disorders, Weak, Surgical History: Hysterectomy Surgical History Comments:: Gallbladder removed, Subjective Information/ Patient Comments:: "I am weak and I got terrible news about my grandson." "I am SOA. I think i need therapy." "I hold to the rail when we walk so I don't lose my balance." - Level of function Prior to this admission, the patient could do the following:: Independent Selfcare, Independent ADL's, Independent Ambulation, Drive Abilities prior to this admission: Pt was independent with self cares. Pt takes a shower in her tub shower that has grab bars. Pt is weak and needs skilled OT to increase her safety of functional transfers and self cares. Current Level of Function: Partially Dependent Current Equipment Used at Home: Pt does not use equipment for functional transfers. Pt may need something. Pain Assessment - Pain Pain Score: 0 Interventions - Objective Patient Orientation: Person, Place, Situation Current Interventions: IV's, Oxygen, Telemetry Observation: Pt is SOA with conversation. Pt is weak and would benefit from skilled OT. Interventions - ROM Right Upper Extremity AROM: WFL's Left Upper Extremity AROM: WFL's - Strength Right Upper Extremity Strength: Mild Weakness Left Upper Extremity Strength: Mild Weakness - Sensation Right Upper Extremity Sensation: Intact/Normal Left Upper Extremity Sensation: Intact/Normal Balance - Sitting Balance Static Sitting Balance: Fair Dynamic Sitting Balance: Fair - Standing Balance Static Standing Balance: Fair Dynamic Standing Balance: Fair ADL Skills - Self Feeding Self Feeding: Independent - Grooming Grooming: CGA - Bathing Bathing UE: Not Tested Bathing LE: Not Tested - Dressing Dressing UE: Independent Dressing LE: CGA - Toilet Management Toileting Management: [facility] Functional Mobility - Bed Mobility Rolling R/L: Independent Scooting: Independent Supine to Sit: Independent Sit to Supine: Independent - Transfers Sit to Stand: [facility] Stand to Sit: [facility] Stand Pivot Transfers: CGA - Ambulation Weight Bearing Status: FWB Assistive Device Used: No Assistive Device Orthotic/Prosthetic Device: No Assistance needed with Ambulation: Min Assist, Max Assist, 1 person assist - Safety Awareness Safety Awareness: Fair GEORGETTE INDEX SCORE: . Additional Treatment Performed - Additional units charged ADL: 16 - Time with patient Length of Evaluation: 20 Total treatment time: 36 Activities Do you enjoy playing games?: Yes Would you be interested in leaving your room for activities?: Yes Would you enjoy group activities?: Yes Do you have difficulty with your vision?: Yes Patient Interests:: Watching Television, Puzzles/Games, Listening to Music, Crafts Patient Education Patient Education: Education of diagnosis, Home Exercise Program, Education of Plan of Care Teaching Recipient: Patient Teaching Methods: Teach Back Method Used, Discussion Assessment Problem List:: Decreased level of function, Requires training/education, Decreased safety/Risk of falls, Weakness Rehab Potential: Good Further Therapy Indicated?: Yes Evaluation Complexity: HISTORY: Medium, EXAM OF BODY SYSTEMS: Medium, CLINICAL DECISION MAKING: Medium Short Term Goals - Goals GOAL 1: Pt to increase dyn. std. balance to Fair+. Goal to be met by: 11/11/18 GOAL 2: Pt to increase BUE strength to 4+/5. Goal to be met by: 11/11/18 GOAL 3: Pt to be educated regarding energy conservation. Goal to be met by: 11/11/18 Coin Wrapping Machine Operator Goals GOAL 1: Pt to increase dyn. std. balance to Good-. Goal to be met by: 11/15/18 GOAL 2: Pt to increase BUE strength to 5/5. Goal to be met by: 11/15/18 GOAL 3: Pt to be (I) with ADLS. Goal to be met by: 11/15/18 Plan Plan of Care: Therapeutic EX, Neuromuscular Re-Educ, Therapeutic Activity, Self- Care/Home Management Frequency of Treatment: 1-2 X day, as tolerated Duration of Treatment: 1 Week Anticipated Discharge Destination: Home Treatment Diagnosis (ICD 10 Codes): R26.81 Balance impaired, Unsteady. Z74.1 Need for assistance with personal care. Has the Physician been added for Co-signature?: Yes
[2018-11-09] MEDS: XOPENEX 1.25 MG NEB SCH ×5 (00:03→23:00)
[2018-11-09] MEDS: PULMICORT 0.5 MG/2 ML NEB SCH ×2 (04:55→17:40)
[2018-11-09] MEDS: HUMULIN R SUBCUT PRN ×4 (05:56→20:23)
[2018-11-09] MEDS ORDERED: GLUCOPHAGE ONE (08:21)
[2018-11-09] MEDS: PREDNISONE PO SCH ×2 (08:23→16:41)
[2018-11-09] MEDS: XANAX PO SCH ×2 (08:23→20:22)
[2018-11-09] MEDS: ASPIRIN EC PO SCH (08:23)
[2018-11-09] MEDS: GLUCOPHAGE PO SCH (08:24)
--- NOTE | 2018-11-09 09:27 | PCM.PROG ---
Attending Provider: ATTENDING PROVIDER: Dr. JAN GUERRA This patient is seen with Mary Webb, Nurse Practitioner. DATE OF SERVICE: 11/09/18 SUBJECTIVE: This 78 year old WHITE/ F was hospitalized 11/01/18. Sitting in chair resting comfortably. The patient is still short of breath with exertion. Will do three step today. Anticipate discharge home tomorrow. The patient would benefit from neb machine at home due to COPD. Encourage the patient to get up and walk today. REVIEW OF SYSTEMS: CONSTITUTIONAL: No night sweats. No fatigue, malaise, lethargy. No fever or chills. HEENT: Eyes: No visual changes. No eye pain. No eye discharge. ENT: No runny nose. No epistaxis. No sinus pain. No odynophagia. No congestion. RESPIRATORY: Positive for cough and shortness of breath. No hemoptysis. CARDIOVASCULAR: No angina symptoms. No CHF symptoms. No atypical chest pain for CAD. No palpitations. No orthopnea.. GASTROINTESTINAL: No abdominal pain. No nausea or vomiting. No diarrhea or constipation. No hematemesis. No hematochezia. GENITOURINARY: No urgency. No frequency. No dysuria. No hematuria. No obstructive symptoms. No discharge. No pain. No significant abnormal bleeding. MUSCULOSKELETAL: No musculoskeletal pain; no joint swelling. NEUROLOGICAL: Awake, alert, oriented to time, place and person. No headache. No neck pain. No syncope. No seizures. No dizziness. PSYCHIATRIC: Not anxious. No depression. No suicidal thoughts. No homicidal thoughts. SKIN: No rash. No lesions. No wounds. ENDOCRINE: No unexplained weight loss. No weight gain. HEMATOLOGIC/LYMPHATIC: No anemia. No purpura. No petechiae. No prolonged or excessive bleeding. No palpable lymph nodes. PHYSICAL EXAMINATION: GENERAL: The patient is awake, alert and oriented, lying/sitting in bed in no distress. VITAL SIGNS: Temperature 98.0 F, Pulse 66, Respiratory Rate 16, BP 142/71, Pulse Ox 98% HEENT: Head normocephalic, atraumatic. Eyes: Extraocular muscles are intact. Pupils are equal, round and reactive to light and accommodation. Ears: No lesions. Nose appeared normal. Throat: No exudate or erythema. NECK: Supple. No JVD, no carotid bruit. No lymphadenopathy or thyromegaly. LUNGS: Diminished breath sounds. Clear to auscultation. Percussion note normal. Chest symmetrical. HEART: S1, S2, no S3. No murmurs. No cyanosis or clubbing. No ascites. Pulses: Dorsalis pedis and posterior tibial pulses +1 to +2 both sides. ABDOMEN: Soft. Non-tender. Bowel sounds active. No CVA tenderness. No mass felt. EXTREMITIES: No edema. Full range of motion of all extremities, equal. NEUROLOGIC: No focal deficit. Cranial nerves II through XII are grossly intact. No headache, no double vision or headache. SKIN: Not dry. Intact. Turgor-normal. LYMPHATIC: No palpable lymph nodes/no lymphedema. MUSCULOSKELETAL: Normal joints with no swelling. Muscle tone is normal. LAB REVIEW: 11/09/18 05:00 11/09/18 05:00 11/09/18 05:00: Sodium 134.5, Potassium 4.25, Chloride 98.1, Carbon Dioxide 31.8 H, Anion Gap 8.85, BUN 28.8 H, Creatinine 0.62, Estimated GFR (MDRD) 93.00 , BUN/Creatinine Ratio 46.45, Glucose 148.5 H, Calcium 7.89 L, Total Bilirubin 0.47, AST 18.1, ALT 40.5 H, Alkaline Phosphatase 65.1, Total Protein 4.47 L, Albumin 2.27 L, Globulin 2.20, Albumin/Globulin Ratio 1.03 11/09/18 05:00: WBC 10.44 H, RBC 4.13 L, Hgb 11.7 L, Hct 36.8 L, MCV 89.1, MCH 28.3, MCHC 31.8, RDW Coeff of Minh 14.9 H, Plt Count 420, Immature Gran % (Auto) 1.9, Neut % (Auto) 79.4, Lymph % (Auto) 12.7, [place] % (Auto) 5.4, Eos % (Auto) 0.4, Baso % (Auto) 0.2, Immature Gran # (Auto) 0.2, Neut # (Auto) 8.3 H, Lymph # (Auto) 1.3, [place] # (Auto) 0.6, Eos # (Auto) 0.0, Baso # (Auto) 0.0 ASSESSMENT: Please see below. 1. Bilateral pneumonia - seems to be improving. 2. COPD/shortness of breath with exertion. PLAN: 1. Anticipate d/c home tomorrow. 2. Three-step 02 today. 3. The patient will need a nebulizer at home. 4. Restart Metformin. Plan and coordination of the patient's care discussed in the presence of Police Detective and nurse. CONDITION: Stable SCRIBED BY: ANA DASILVA Motocross Racer scribed while in presence of service performed by Dr. Guerra/Mary Webb APRN on 11/09/18 ([id number])
[2018-11-09] MEDS: NORCO 5-325 PO PRN (09:48)
--- NOTE | 2018-11-09 10:53 | PN ---
DATE OF SERVICE: 11/04/18 SUBJECTIVE: 78-year-old white female hospitalized with pneumonia. The patient was seen and examined with the nurse practitioner. The patient's condition is stable. Continue antibiotics. TIME SPENT: More than 30 minutes. Plan and coordination of the patient's care discussed in the presence of nurse. UKLDIP
--- NOTE | 2018-11-09 10:58 | PN ---
DATE OF SERVICE: 11/05/18 SUBJECTIVE: The patient was seen and examined with the nurse practitioner. The patient is being treated for pneumonia. Condition is improving with double antibiotics. TIME SPENT: More than 30 minutes. Plan and coordination of the patient's care discussed in the presence of nurse. KULDIP
--- NOTE | 2018-11-09 11:26 | PN ---
DATE OF SERVICE: 11/06/18 SUBJECTIVE: 78-year-old white female hospitalized with double pneumonia. The patient's condition is improving. She is feeling weak and short of breath with exertion. Her appetite seems to be improving. The WBC count is practically normal now 9.9 ; it was close to 22,000. REVIEW OF SYSTEMS: CONSTITUTIONAL: No night sweats. No fatigue, malaise, lethargy. No fever or chills. HEENT: Eyes: No visual changes. No eye pain. No eye discharge. ENT: No runny nose. No epistaxis. No sinus pain. No sore throat. No odynophagia. No congestion. RESPIRATORY: No cough, no congestion. No hemoptysis. No shortness of breath. CARDIOVASCULAR: No angina symptoms. No CHF symptoms. No atypical chest pain for CAD. No palpitations. No PND. No orthopnea. GASTROINTESTINAL: No abdominal pain. No nausea or vomiting. No diarrhea or constipation. No hematemesis. No hematochezia. GENITOURINARY: No urgency. No frequency. No dysuria. No hematuria. No obstructive symptoms. No discharge. No pain. No significant abnormal bleeding. MUSCULOSKELETAL: No musculoskeletal pain; no joint swelling. NEUROLOGICAL: No headache. No neck pain. No syncope. No seizures. No dizziness. PSYCHIATRIC: Not anxious. No depression. No suicidal thoughts. No homicidal thoughts. SKIN: No rash. No lesions. No wounds. ENDOCRINE: No unexplained weight loss. No weight gain. HEMATOLOGIC/LYMPHATIC: No anemia. No purpura. No petechiae. No prolonged or excessive bleeding. No palpable lymph nodes. PHYSICAL EXAMINATION: VITAL SIGNS: Temperature 97.8, pulse 100, respiratory rate 20, BP 146/79, pulse ox 96%. HEENT: Head normocephalic, atraumatic. Eyes: Extraocular muscles are intact. Pupils are equal, round and reactive to light and accommodation. Ears: No lesions. Nose appeared normal. Throat: No exudate or erythema. NECK: Supple. No JVD, no carotid bruit. No lymphadenopathy or thyromegaly. LUNGS: Decreased breath sounds but clear to auscultation. Percussion note normal. Chest symmetrical. HEART: S1, S2, no S3. No murmurs. No cyanosis or clubbing. No ascites. Pulses: Dorsalis pedis and posterior tibial pulses +1 to +2 bilaterally. ABDOMEN: Soft. Nontender. Bowel sounds active. No CVA tenderness. No mass felt. EXTREMITIES: No edema. Full range of motion of all extremities, equal. NEUROLOGIC: No focal deficit. Cranial nerves II through XII are grossly intact. No headache, no double vision or headache. SKIN: Not dry. Intact. Turgor - normal. LYMPHATIC: No palpable lymph nodes/no lymphedema. MUSCULOSKELETAL: Normal joints with no swelling. Muscle tone is normal. LABS: Hemoglobin 12.2, hematocrit 37, WBC 9,900, normal differential. Creatinine 0.6, BUN 24, potassium 4.5, glucose 208. ASSESSMENT: 1. HYPERGLYCEMIA LIKELY COULD BE FROM STEROIDS. 2. ACUTE BRONCHITIS WITH SEVERE CHRONIC LUNG DISEASE RESOLVING. 3. HISTORY OF HEAVY SMOKING, COUNSELING DONE. 4. THE PATIENT HAS DIABETES MELLITUS AND IS ON METFORMIN. PLAN: 1. Zocor is continued. 2. The patient will have echocardiogram to evaluate LV function and shortness of breath likely from COPD but the patient has multiple risk factors for coronary artery disease. She wants her heart to be checked out. TIME SPENT: More than 30 minutes. Plan and coordination of the patient's care discussed in the presence of nurse. KULDIP
--- NOTE | 2018-11-09 11:31 | PN ---
DATE OF SERVICE: 11/07/18 SUBJECTIVE: 78-year-old white female hospitalized with pneumonia. The patient's condition seems to be improving but she is short of breath on minimal exertion as usual. REVIEW OF SYSTEMS: CONSTITUTIONAL: No night sweats. No fatigue, malaise, lethargy. No fever or chills. HEENT: Eyes: No visual changes. No eye pain. No eye discharge. ENT: No runny nose. No epistaxis. No sinus pain. No sore throat. No odynophagia. No congestion. RESPIRATORY: No cough, no congestion. No hemoptysis. No shortness of breath. CARDIOVASCULAR: No angina symptoms. No CHF symptoms. No atypical chest pain for CAD. No palpitations. No PND. No orthopnea. GASTROINTESTINAL: No abdominal pain. No nausea or vomiting. No diarrhea or constipation. No hematemesis. No hematochezia. GENITOURINARY: No urgency. No frequency. No dysuria. No hematuria. No obstructive symptoms. No discharge. No pain. No significant abnormal bleeding. MUSCULOSKELETAL: No musculoskeletal pain; no joint swelling. NEUROLOGICAL: No headache. No neck pain. No syncope. No seizures. No dizziness. PSYCHIATRIC: Not anxious. No depression. No suicidal thoughts. No homicidal thoughts. SKIN: No rash. No lesions. No wounds. ENDOCRINE: No unexplained weight loss. No weight gain. HEMATOLOGIC/LYMPHATIC: No anemia. No purpura. No petechiae. No prolonged or excessive bleeding. No palpable lymph nodes. PHYSICAL EXAMINATION: VITAL SIGNS: Temperature 97.8, pulse 74, respiratory rate 18, blood pressure 142 /72, pulse ox 93%. HEENT: Head normocephalic, atraumatic. Eyes: Extraocular muscles are intact. Pupils are equal, round and reactive to light and accommodation. Ears: No lesions. Nose appeared normal. Throat: No exudate or erythema. NECK: Supple. No JVD, no carotid bruit. No lymphadenopathy or thyromegaly. LUNGS: Decreased breath sounds. Clear to auscultation. Percussion note normal. Chest symmetrical. HEART: S1, S2, no S3. No murmurs. No cyanosis or clubbing. No ascites. Pulses: Dorsalis pedis and posterior tibial pulses +1 to +2 bilaterally. ABDOMEN: Soft. Nontender. Bowel sounds active. No CVA tenderness. No mass felt. EXTREMITIES: No edema. Full range of motion of all extremities, equal. NEUROLOGIC: No focal deficit. Cranial nerves II through XII are grossly intact. No headache, no double vision or headache. SKIN: Not dry. Intact. Turgor - normal. LYMPHATIC: No palpable lymph nodes/no lymphedema. MUSCULOSKELETAL: Normal joints with no swelling. Muscle tone is normal. ASSESSMENT: 1. SEVERE COPD WITH HISTORY OF SMOKING. 2. DYSLIPIDEMIA. 3. HISTORY OF HYPERTENSION. 4. DIABETES MELLITUS. 5. ANXIETY DISORDER. PLAN: 1. To do echo which was done and showed mildly hypokinetic septum with ejection fraction 45 to 50%. Normal LV and LA size. Normal valves. Report discussed. 2. Continue antibiotics. 3. Strongly advise to quit smoking. 4. ASHD discussed and declined. 5. Stress test for now. TIME SPENT: More than 30 minutes. Plan and coordination of the patient's care discussed in the presence of nurse. KULDIP
--- NOTE | 2018-11-09 11:49 | RS.PTINEVL ---
Subjective - Patient information Date of Evaluation: 11/09/18 Date of Arrival on Unit: 11/02/18 Admitted From:: Home Diagnosis: B pneumonia, SOA, severe COPD Living Arrangement Comments: bruno lives with her Home Environment: House, Stairs (few), Rail Medical History: Hypertension, COPD, Diabetes Medical History Comments:: asthma, DJD, osteoporosis, vit D deficiency, LATEX ALLERGY?: No Surgical History: Cholecystectomy Medications: see chart Subjective Information/ Patient Comments:: pt states that she is feeling better. States she is a little nervous about going home. - Level of function Prior to this admission, the patient could do the following:: Independent Selfcare, Independent ADL's, Independent Ambulation, Drive Current Level of Function: Partially Dependent Current Equipment Used at Home: currently does not use equipment Interventions - Objective Patient Orientation: Person, Place, Time, Situation Current Interventions: IV's, Oxygen Observation: pt with edema BLE Range of Motion - ROM Right Upper Extremity AROM: WFL's Left Upper Extremity AROM: WFL's Right Lower Extremity AROM: WFL's Left Lower Extremity AROM: WFL's Muscle Strength - Muscle Strength Right Upper Extremity Strength: Mild Weakness (grossly 4/5) Left Upper Extremity Strength: Mild Weakness (grossly 4/5) Right Lower Extremity Strength: Mild Weakness (hip flex 4-/5, knee flex/ext 4/5 , ankle Df/PF 4/5) Left Lower Extremity Strength: Mild Weakness (hip flex 4-/5, knee flex/ext 4/5, ankle Df/PF 4/5) Sensation - Sensation Right Upper Extremity Sensation: Intact/Normal Left Upper Extremity Sensation: Intact/Normal Right Lower Extremity Sensation: Intact/Normal Left Lower Extremity Sensation: Intact/Normal Palpation Palpation Findings: None/Normal Balance - Sitting Balance and Reactions Static Sitting Balance: Good Dynamic Sitting Balance: Good (good-) - Standing Balance and Reactions Static Standing Balance: Fair Dynamic Standing Balance: Poor Functional Mobility - Bed Mobility Comments:: pt seen sitting in bedside chair. - Transfers Sit to Stand: Supervision Stand to Sit: Supervision Comments:: verbal cues for technique - Safety Awareness Safety Awareness: Fair GEORGETTE INDEX SCORE: n/a Ambulation - Ambulation Assistive Device Used: Rolling Walker Orthotic/Prosthetic Device: No Distance: 140ft Assistance needed with Ambulation: CGA Quality of Ambulation: pt amb with CGA with genu valgus on R, flexed posture, decreased step length Gait Deviations: Narrow Based gait, Forward posture, Short stride Factors Affecting Ambulation: Decreased Balance, Breathing/O2 Saturation, Weakness, Decreased Coordination, Decreased Safety, Limited Endurance Treatment time - Time with patient Length of Evaluation: 21 Total treatment time: 26 Patient Education - Education Patient Education: Education of diagnosis, Education of Plan of Care Teaching Recipient: Patient Teaching Methods: Discussion Comments: discussion regarding POC as well as safety with sit to/from stand Assessment - Assessment Problem List:: Decreased level of function, Requires training/education, Decreased safety/Risk of falls, Weakness Rehab Potential: Good Further Therapy Indicated?: Yes Candidate for Swing Bed for Therapy Services?: Do not feel pt would be a candidate for swing bed due to high functional level. Evaluation Complexity: HISTORY: Medium, EXAM OF BODY SYSTEMS: Medium, CLINICAL PRESENTATION: Medium, CLINICAL DECISION MAKING: Medium Short Term Goals GOAL #1: pt demonstrate independence with bed mobility Goal to be met by: 11/10/18 GOAL #2: pt amb with rwx with CGA to SBA 150ft with O2 no LOB Goal to be met by: 11/10/18 GOAL #3: Transfer sup to/from sit SBA Goal to be met by: 11/10/18 GOAL #4: Sit to/from stand SBA Goal to be met by: 11/10/18 [facility] Goals GOAL #1: pt amb functional household distances with rwx and O2 with SBA Goal to be met by: 11/12/18 GOAL #2: Improve dyn stand balance fair + Goal to be met by: 11/12/18 Plan Plan of Care: Therapeutic EX, Therapeutic Activity Other:: gait training Frequency of Treatment: 1-2 X day, as tolerated Duration of Treatment: 3-4 days Anticipated Discharge Destination: Home Treatment Diagnosis (ICD 10 Codes): R 26.81 balance impaired. R 26.2 difficulty walking Has the Physician been added for Co-signature?: Yes
[2018-11-10] MEDS: XOPENEX 1.25 MG NEB SCH ×2 (04:45→11:04)
[2018-11-10] MEDS: PULMICORT 0.5 MG/2 ML NEB SCH (04:45)
[2018-11-10 05:04] VITALS: BP 140/66; TEMP 97.9
[2018-11-10] MEDS: HUMULIN R SUBCUT PRN (05:42)
[2018-11-10] MEDS: ASPIRIN EC PO SCH (09:30)
[2018-11-10] MEDS: GLUCOPHAGE PO SCH (09:31)
[2018-11-10] MEDS: XANAX PO SCH (09:31)
[2018-11-10] MEDS: PREDNISONE PO SCH (09:31)
--- NOTE | 2018-11-10 10:51 | PN ---
DATE OF SERVICE: 11/08/18 SUBJECTIVE: The patient's bilateral pneumonia is improving clinically. She is less short of breath. Echo showed hypokinetic left ventricle septal wall with LV ejection fraction 45-50%. The patient's doesn't have any CHF. She declined any further testing in a way of stress echo. She was strongly advised to quit smoking. The patient was seen and examined with Nurse Practitioner. TIME SPENT: More than 30 minutes. Plan and coordination of the patient's care discussed in the presence of nurse. KULDIP
--- NOTE | 2018-11-10 10:52 | PCM.PROG ---
Attending Provider: ATTENDING PROVIDER: Dr. JAN GUERRA This patient is seen with Mary Webb, Nurse Practitioner. DATE OF SERVICE: 11/10/18 SUBJECTIVE: This 78 year old WHITE/ F was hospitalized 11/01/18. The patient is sitting on bed resting comfortably. She is still short of breath with exertion. She had failed three step 02. She is still very weak. Appetite is slowly improving. REVIEW OF SYSTEMS: CONSTITUTIONAL: Weakness. No night sweats. No fatigue, malaise, lethargy. No fever or chills. HEENT: Eyes: No visual changes. No eye pain. No eye discharge. ENT: No runny nose. No epistaxis. No sinus pain. No odynophagia. No congestion. RESPIRATORY: Cough. No congestion. No hemoptysis. Shortness of breath. CARDIOVASCULAR: No angina symptoms. No CHF symptoms. No atypical chest pain for CAD. No palpitations. No orthopnea.. GASTROINTESTINAL: No abdominal pain. No nausea or vomiting. No diarrhea or constipation. No hematemesis. No hematochezia. GENITOURINARY: No urgency. No frequency. No dysuria. No hematuria. No obstructive symptoms. No discharge. No pain. No significant abnormal bleeding. MUSCULOSKELETAL: No musculoskeletal pain; no joint swelling. NEUROLOGICAL: Awake, alert, oriented to time, place and person. No headache. No neck pain. No syncope. No seizures. No dizziness. PSYCHIATRIC: Not anxious. No depression. No suicidal thoughts. No homicidal thoughts. SKIN: No rash. No lesions. No wounds. ENDOCRINE: No unexplained weight loss. No weight gain. HEMATOLOGIC/LYMPHATIC: No anemia. No purpura. No petechiae. No prolonged or excessive bleeding. No palpable lymph nodes. PHYSICAL EXAMINATION: GENERAL: The patient is awake, alert and oriented, lying/sitting in bed in no distress. VITAL SIGNS: Temperature 97.9 F, Pulse 64, Respiratory Rate 18, BP 140/66, Pulse Ox 99% HEENT: Head normocephalic, atraumatic. Eyes: Extraocular muscles are intact. Pupils are equal, round and reactive to light and accommodation. Ears: No lesions. Nose appeared normal. Throat: No exudate or erythema. NECK: Supple. No JVD, no carotid bruit. No lymphadenopathy or thyromegaly. LUNGS: Diminished breath sounds bilaterally. Clear to auscultation. Percussion note normal. Chest symmetrical. HEART: S1, S2, no S3. No murmurs. No cyanosis or clubbing. No ascites. Pulses: Dorsalis pedis and posterior tibial pulses +1 to +2 both sides. ABDOMEN: Soft. Non-tender. Bowel sounds active. No CVA tenderness. No mass felt. EXTREMITIES: No edema. Full range of motion of all extremities, equal. NEUROLOGIC: No focal deficit. Cranial nerves II through XII are grossly intact. No headache, no double vision or headache. SKIN: Not dry. Intact. Turgor-normal. LYMPHATIC: No palpable lymph nodes/no lymphedema. MUSCULOSKELETAL: Normal joints with no swelling. Muscle tone is normal. LAB REVIEW: 11/10/18 05:00 11/10/18 05:00 11/10/18 05:00: Sodium 133.9 L, Potassium 4.67, Chloride 96.5 L, Carbon Dioxide 33.1 H, Anion Gap 8.97, BUN 24.2 H, Creatinine 0.61, Estimated GFR (MDRD) 95.00 , BUN/Creatinine Ratio 39.67, Glucose 153.8 H, Calcium 8.09 L, Total Bilirubin 0.53, AST 20.3, ALT 40.5 H, Alkaline Phosphatase 62.3, Total Protein 4.49 L, Albumin 2.36 L, Globulin 2.13, Albumin/Globulin Ratio 1.10 11/10/18 05:00: WBC 9.72, RBC 4.08 L, Hgb 11.6 L, Hct 37.2, MCV 91.2, MCH 28.4, MCHC 31.2 L, RDW Coeff of Minh 14.9 H, Plt Count 360, Immature Gran % (Auto) 1.6 , Neut % (Auto) 81.9, Lymph % (Auto) 11.3, [place] % (Auto) 4.8, Eos % (Auto) 0.3, Baso % (Auto) 0.1, Immature Gran # (Auto) 0.2, Neut # (Auto) 8.0 H, Lymph # ( Auto) 1.1, [place] # (Auto) 0.5, Eos # (Auto) 0.0, Baso # (Auto) 0.0 ASSESSMENT: Please see below. 1. Bilateral pneumonia - seems to be improving. 2. COPD/shortness of breath with exertion. PLAN: 1. PT/OT consultation. 2. Continue 02 continuous. Plan and coordination of the patient's care discussed in the presence of Hot Top Liner and nurse. CONDITION: Stable SCRIBED BY: ANA DASILVA [employer]arn Bleaching Machine Operator scribed while in presence of service performed by Dr. Guerra/Mary Webb APRN on 11/10/18 ([id number])
--- NOTE | 2018-11-10 13:07 | CM.DICTOOL ---
ADMISSION: 11/01/18 13:14 DISCHARGE: NOVEMBER 10, 2018 DATE OF SERVICE: 11/10/18 FINAL DIAGNOSIS PNEUMONIA, BILATERAL RESOLVING ELEVATED LFT'S, RESOLVED DIABETES MELLITUS, TYPE 2 DYSLIPIDEMIA EMPHYSEMA HIATAL HERNIA, SMALL PER T RENAL CYSTS, BILATERAL PER CT TONSILLECTOMY CATARACT EXTRACTION, BILATERAL HYSTERECTOMY, 1992 CHOLECYSTECTOMY, 2002 LAST VITALS Temp Pulse Resp BP Pulse Ox 97.9 F 64 18 140/66 99 11/10/18 05:00 11/10/18 05:00 11/10/18 05:00 11/10/18 05:00 11/10/18 05:00 TAKE THESE MEDICATIONS AT HOME Hydrocodone Bitart/Acetaminophen ([place] 5-325) 1 tab PO TID PRN PRN Reason: Analgesia Last Admin: 11/09/18 09:48 Dose: 1 tab Alprazolam (Xanax) 0.25 mg PO BID [facility] Last Admin: 11/10/18 09:31 Dose: 0.25 mg Aspirin (Aspirin Ec) 81 mg PO DAILYWM [facility] Last Admin: 11/10/18 09:30 Dose: 81 mg Budesonide (Pulmicort 0.5 Mg/2 Ml) 1 vial NEB RT AT BEDTIME [facility] Last Admin: 11/10/2018 04:45 ALBUTEROL 0.083% 1 vial NEB RTTID [facility] Metformin HCl (Glucophage) 500 mg PO DAILYWM [facility] Last Admin: 11/10/18 09:31 Dose: 500 mg Prednisone (Prednisone) 10 mg PO BIDWM [facility] for 5 days ALLERGIES No Known Allergies Allergy (Unverified 11/01/18 08:55) DISCONTINUED MEDICATIONS NONE NEW PRESCRIPTIONS: PREDNISONE 10 MG BID FOR 5 DAYS ALBUTEROL 0.083% TID FOR NEBULIZER TREATMENTS AND PULMICORT 0.5 MG/ 2ML AT BEDTIME FOR NEBULIZER OXYGEN AT 2 LITERS PER NASAL CANNULA SMOKING: NOT APPLICABLE (PATIENT NO LONGER SMOKES) DISEASE SPECIFIC EDUCATION: PNEUMONIA USE OF STEROID AND RISK OF GI IRRITATION USE OF OXYGEN USE OF NEBULIZER TREATMENTS NUTRITION ACTIVITY APPOINTMENT LAB REVIEW: 11/10/18 05:00 11/10/18 05:00 11/10/18 05:00: Sodium 133.9 L, Potassium 4.67, Chloride 96.5 L, Carbon Dioxide 33.1 H, Anion Gap 8.97, BUN 24.2 H, Creatinine 0.61, Estimated GFR (MDRD) 95.00 , BUN/Creatinine Ratio 39.67, Glucose 153.8 H, Calcium 8.09 L, Total Bilirubin 0.53, AST 20.3, ALT 40.5 H, Alkaline Phosphatase 62.3, Total Protein 4.49 L, Albumin 2.36 L, Globulin 2.13, Albumin/Globulin Ratio 1.10 11/10/18 05:00: WBC 9.72, RBC 4.08 L, Hgb 11.6 L, Hct 37.2, MCV 91.2, MCH 28.4, MCHC 31.2 L, RDW Coeff of Minh 14.9 H, Plt Count 360, Immature Gran % (Auto) 1.6 , Neut % (Auto) 81.9, Lymph % (Auto) 11.3, [place] % (Auto) 4.8, Eos % (Auto) 0.3, Baso % (Auto) 0.1, Immature Gran # (Auto) 0.2, Neut # (Auto) 8.0 H, Lymph # ( Auto) 1.1, [place] # (Auto) 0.5, Eos # (Auto) 0.0, Baso # (Auto) 0.0 PLAN: DISCHARGE HOME DIET: CONSISTENT CARBOHYDRATES TOLERATED ACTIVITY: GRADUALLY RESUME TOLERATED REST WHEN TIRED AVOID OUTSIDE ACTIVITY IN EXTREME HEAT AND HUMIDITY USE OXYGEN AT 2 LITERS PER NASAL CANNULA CONTINUOUSLY ADMINISTER NEBULIZER TREATMENTS 3-4 TIMES A DAY AN APPOINTMENT IS SCHEDULED WITH DR. GUERRA/EVERTON LYONS APRN ON November AT 9 AM CODE STATUS: DO NOT RESUSCITATE PER HER REQUEST MS. CONLEY IS ALERT AND ORIENTED X 3. MS. CONLEY LIVES AT HOME WITH A FAMILY MEMBER (STEP-SON). SHE IS INDEPENDENT WITH ACTIVITIES OF DAILY LIVING. SHE TRANSFERS PER SELF AND IS AMBULATORY IN THE ROOM WITHOUT ASSISTANCE FROM THE NURSING STAFF. SHE IS CONTINENT OF BOWEL AND BLADDER. HYDRATION STATUS HAS IMPROVED AND MEAL INTAKES ARE 70-100%. NO ABDOMINAL PAIN, NAUSEA OR FURTHER DIARRHEA ARE REPORTED. MS. CONLEY HAS REQUIRED USE OF OXYGEN DURING HER HOSPITALIZATION DUE TO SHORTNESS OF BREATH AT REST AND WITH EXERTION. SHE IS EDUCATED ON THE USE OF HOME OXYGEN AT DISCHARGE. WE HAVE ARRANGED FOR OXYGEN CONCENTRATOR, PORTABILITY AND SUPPLIES PLUS NEBULIZER TO BE DELIVERED BY [facility] FOR HER USE AT HOME. SKIN IS INTACT AND NO SKIN BREAKDOWN IS NOTED. MD EVERTON JAY APRN
--- NOTE | 2018-11-10 13:51 | PN ---
DATE OF SERVICE: 11/09/18 SUBJECTIVE: The patient is doing well, progressing well. Bronchitis and pneumonia seems to be resolving. Counseling for smoking done. Condition stable. Likely to be discharged tomorrow. TIME SPENT: More than 30 minutes. Plan and coordination of the patient's care discussed in the presence of nurse. KULDIP
--- NOTE | 2018-11-10 14:25 | DS ---
DATE OF SERVICE: 11/10/18 FINAL DIAGNOSIS: 1. PNEUMONIA, BILATERAL RESOLVING 2. ELEVATED LFT'S, RESOLVED 3. DIABETES MELLITUS, TYPE 2 4. DYSLIPIDEMIA 5. EMPHYSEMA 6. HIATAL HERNIA, SMALL PER CT 7. RENAL CYSTS, BILATERAL PER CT 8. TONSILLECTOMY 9. CATARACT EXTRACTION, BILATERAL 10. HYSTERECTOMY, 1992 11. CHOLECYSTECTOMY, 2002 DISCHARGE INSTRUCTIONS: 1. USE OXYGEN AT 2 LITERS PER NASAL CANNULA CONTINUOUSLY. 2. ADMINISTER NEBULIZER TREATMENTS 3-4 TIMES A DAY. 3. AN APPOINTMENT IS SCHEDULED WITH DR. GUERRA/EVERTON LYONS APRN ON November AT 9 AM. MEDICATIONS AT DISCHARGE: Hydrocodone Bitart/Acetaminophen ([place] 5-325) 1 tab PO TID PRN PRN Reason: Analgesia Last Admin: 11/09/18 09:48 Dose: 1 tab Alprazolam (Xanax) 0.25 mg PO BID [facility] Last Admin: 11/10/18 09:31 Dose: 0.25 mg Aspirin (Aspirin Ec) 81 mg PO DAILYWM [facility] Last Admin: 11/10/18 09:30 Dose: 81 mg Budesonide (Pulmicort 0.5 Mg/2 Ml) 1 vial NEB RT AT BEDTIME [facility] Last Admin: 11/10/2018 04:45 ALBUTEROL 0.083% 1 vial NEB RTTID [facility] Metformin HCl (Glucophage) 500 mg PO DAILYWM [facility] Last Admin: 11/10/18 09:31 Dose: 500 mg Prednisone (Prednisone) 10 mg PO BIDWM [facility] for 5 days NEW PRESCRIPTIONS: PREDNISONE 10 MG BID FOR 5 DAYS ALBUTEROL 0.083% TID FOR NEBULIZER TREATMENTS AND PULMICORT 0.5 MG/ 2ML AT BEDTIME FOR NEBULIZER OXYGEN AT 2 LITERS PER NASAL CANNULA DISCONTINUED MEDICATIONS: NONE DIET INSTRUCTIONS: CONSISTENT CARBOHYDRATES TOLERATED. ACTIVITY: GRADUALLY RESUME TOLERATED REST WHEN TIRED AVOID OUTSIDE ACTIVITY IN EXTREME HEAT AND HUMIDITY SMOKING: NOT APPLICABLE (PATIENT NO LONGER SMOKES) DISEASE SPECIFIC EDUCATION: PNEUMONIA USE OF STEROID AND RISK OF GI IRRITATION USE OF OXYGEN USE OF NEBULIZER TREATMENTS NUTRITION ACTIVITY APPOINTMENT HOSPITAL COURSE: The patient was hospitalized with bilateral pneumonia. The patient has severe chronic lung disease with heavy smoking. The patient was treated with IV antibiotics, steroids, nebs treatment and oxygen supplement. The patient's condition [id number] improved. She started walking and eating on her own. Appetite has improved. She is going to be on tapering dose of steroids and antibiotics. She is also qualified for home oxygen. Counseling for smoking done. Cardiovascular status was stable. Echocardiogram showed ejection fraction of 45 to 50% with hypokinetic septum. She has several risk factors for coronary artery disease. She declined any stress test or Dobutamine stress test. She is going to be followed as an outpatient. She is going to be seen in followup on Thursday. Condition at time of discharge stable. TIME SPENT: More than 60 minutes. KULDIP
--- NOTE | 2018-11-10 14:27 | PN ---
BILLING 11/01/18 ADMISSION DAY LEVEL 5 11/02/18 INTERMEDIATE 11/03/18 INTERMEDIATE 11/04/18 INTERMEDIATE 11/05/18 INTERMEDIATE 11/06/18 INTERMEDIATE 11/07/18 INTERMEDIATE 11/08/18 INTERMEDIATE 11/09/18 INTERMEDIATE 11/10/18 DISCHARGE MTDD
--- NOTE | 2018-12-05 10:54 | DS ---
DATE OF SERVICE: 11/10/18 FINAL DIAGNOSIS: 1. PNEUMONIA, BILATERAL RESOLVING 2. ELEVATED LFT'S, RESOLVED 3. DIABETES MELLITUS, TYPE 2 4. DYSLIPIDEMIA 5. EMPHYSEMA 6. HIATAL HERNIA, SMALL PER T 7. RENAL CYSTS, BILATERAL PER CT 8. TONSILLECTOMY 9. CATARACT EXTRACTION, BILATERAL 10. HYSTERECTOMY, 1992 11. CHOLECYSTECTOMY, 2002 DISCHARGE INSTRUCTIONS: 1. USE OXYGEN AT 2 LITERS PER NASAL CANNULA CONTINUOUSLY 2. ADMINISTER NEBULIZER TREATMENTS 3-4 TIMES A DAY 3. AN APPOINTMENT IS SCHEDULED WITH DR. GUERRA/EVERTON LYONS APRN ON November AT 9 AM MEDICATIONS AT DISCHARGE: Hydrocodone Bitart/Acetaminophen ([place] 5-325) 1 tab PO TID PRN PRN Reason: Analgesia Last Admin: 11/09/18 09:48 Dose: 1 tab Alprazolam (Xanax) 0.25 mg PO BID [facility] Last Admin: 11/10/18 09:31 Dose: 0.25 mg Aspirin (Aspirin Ec) 81 mg PO DAILYWM [facility] Last Admin: 11/10/18 09:30 Dose: 81 mg Budesonide (Pulmicort 0.5 Mg/2 Ml) 1 vial NEB RT AT BEDTIME [facility] Last Admin: 11/10/2018 04:45 ALBUTEROL 0.083% 1 vial NEB RTTID [facility] Metformin HCl (Glucophage) 500 mg PO DAILYWM [facility] Last Admin: 11/10/18 09:31 Dose: 500 mg Prednisone (Prednisone) 10 mg PO BIDWM [facility] for 5 days NEW PRESCRIPTIONS: PREDNISONE 10 MG BID FOR 5 DAYS ALBUTEROL 0.083% TID FOR NEBULIZER TREATMENTS AND PULMICORT 0.5 MG/ 2ML AT BEDTIME FOR NEBULIZER OXYGEN AT 2 LITERS PER NASAL CANNULA DISCONTINUED MEDICATIONS: NONE DIET INSTRUCTIONS: CONSISTENT CARBOHYDRATES TOLERATED ACTIVITY: GRADUALLY RESUME TOLERATED REST WHEN TIRED AVOID OUTSIDE ACTIVITY IN EXTREME HEAT AND HUMIDITY SMOKING: NOT APPLICABLE (PATIENT NO LONGER SMOKES) DISEASE SPECIFIC EDUCATION: PNEUMONIA USE OF STEROID AND RISK OF GI IRRITATION USE OF OXYGEN USE OF NEBULIZER TREATMENTS NUTRITION ACTIVITY APPOINTMENT HOSPITAL COURSE: This is a white female who presented to the emergency room with cough and shortness of breath. Chest x-ray revealed she had bilateral pneumonia. Her sister is also hospitalized. They had recently been on a trip to [place] and both came back sick. She has a history of COPD. 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 She was placed on Rocephin 1 gm IV daily along with Zithromax 500 mg p.o. daily times three days. Multiple chest x- rays were done. There was no improvement for several days. After about one week she did show improvement in the chest x-ray. She is now oxygen dependent. I do believe this is a combination of insult from pneumonia and underlying COPD. She did a three-step test and failed. She will require home oxygen. Also due to her continued shortness of breath and weakness, she would benefit from a nebulizer machine at home. We have given her a prescription. She is to do Pulmicort 0.5 at bedtime as well as Albuterol three times daily. She was on Rocephin, Zithromax and placed her on Omnicef. She finished a 10 day course of antibiotics. She was initially on Solu-Medrol 125 mg q.8. I increased that to q.6 on the second day after she had still very little air movement, low saturation. She improved on the q.6 and was there for two to three days then we began to wean her back down to q.8hr IV on Solumedrol then q.12 hours. On Thursday I placed her on Prednisone 20 b.i.d. She still had significant weakness and shortness of breath with exertion. She has been working with Physical Therapy. Today she is 99% on 2L. Again she will go home on home oxygen. Her son stays with her so he will be there to help. She has completed her course of antibiotics. A prescription for nebulizer machine and nebs have been given. She is to continue her nebs three times a day for at least the next two weeks. She is to continue the Pulmicort at night indefinitely, wear her oxygen at all times. She will be on Prednisone 10 mg b.i.d. for the next five days. Will followup with her in the office next week. TIME SPENT: More than 60 minutes. KULDIP
== END 2018-11-10 14:35 | disposition home or self-care (01) | DRG 195 ==
LOC: ED 08:35 → MEDSURG B 13:14
PROVIDERS: ADMIT Internal Medicine; ATTEND Internal Medicine
DX: J18.9 Pneumonia, unspecified organism; J43.9 Emphysema, unspecified; R06.2 Wheezing; J20.9 Acute bronchitis, unspecified; R19.7 Diarrhea, unspecified; F41.9 Anxiety disorder, unspecified; R05 Cough; E11.9 Type 2 diabetes mellitus without complications; R09.81 Nasal congestion; D64.9 Anemia, unspecified; R73.9 Hyperglycemia, unspecified; I10 Essential (primary) hypertension; E78.5 Hyperlipidemia, unspecified; N28.1 Cyst of kidney, acquired; R60.0 Localized edema; Z99.81 Dependence on supplemental oxygen; J06.9 Acute upper respiratory infection, unspecified; J44.9 Chronic obstructive pulmonary disease, unspecified; K44.9 Diaphragmatic hernia without obstruction or gangrene

== ENCOUNTER 2020-12-14 16:04 | Inpatient (IN) ==
[2020-12-14] MEDS ORDERED: CATAPRES PO ONE (16:22)
[2020-12-14] MEDS ORDERED: ASPIRIN CHEWABLE PO ONE (16:22)
--- NOTE | 2020-12-14 16:27 | ED.PDOC ---
General ED Provider: Dr. FERNY CORTEZ MD Chief Complaint: Chest Wall Injury/Pain Stated Complaint: mild to mod off and on right chest pain tight since Thursday, no injury, nonrad, not short of breath Time Seen by Provider: 12/14/20 16:18 Mode of Arrival: Walk-In Information Source: Patient Primary Care Provider: JAN GUERRA Nursing and Triage Documentation Reviewed and Agree: Yes Does patient meet sepsis criteria?: No System Inflammatory Response Syndrome: Not Applicable Sepsis Protocol: For patient's 13 years and over: Temp is 96.8 and below OR 101 and greater Pulse >90 BPM Resp >20/minute Acutely Altered Mental Status Are patient's symptoms suggestive of a new infection, such as: -Pneumonia -Skin, Soft Tissue -Endocarditis -UTI -Bone, Joint Infection -Implantable Device -Acute Abdominal Infection -Wound Infection -Meningitis -Blood Stream Catheter Infection -Unknown Review of Systems Review Of Systems Constitutional: Denies Fever Eyes: Denies Vision change Ears, Nose, Mouth, Throat: Denies Throat pain Respiratory: Denies Short of air Cardiac: Reports Chest pain GI: Denies Abdominal pain : Denies Frequency Musculoskeletal: Denies Back pain Skin: Denies Rash Neurological: Denies Cognitive dysfunction or Headache All Other Systems: Other PFSH Social History Smoking and tobacco status: Smoker, status unknown History of recent travel: Yes (TO [place]) Female Reproductive History Menstrual Hx Hysterectomy: Yes Hx Tubal Ligation: No Physical Exam Physical Exam Appearance: Reports Well-appearing Ill-appearing: Not Applicable Pain Distress: Mild Eyes: Reports Conjunctiva clear ENT: Reports Oropharynx normal Neck: Supple Respiratory: Reports Airway patent and Breath sounds clear Cardiovascular: Reports RRR GI/: Reports Soft and Nontender Musculoskeletal: Reports ROM intact Skin: Reports Warm and Dry Neurological: Reports Alert and Oriented Psychiatric: Reports Affect appropriate Interpretation Radiology Interpretation Radiology Interpretation By: Radiologist Exam Interpreted: CXR and CT Scan Xray Comments: rul mass and lytic lesion T5 pedicle probable cancer, no PE EKG Interpretation Time of EKG #1: 19:11 Rate: Normal Rhythm: Sinus Interpretation: no stemi Critical Care Note Critical Care Note Total Critical Care Time (mins): 0 Course Course Hematology/Chemistry: 12/14/20 16:35 12/14/20 16:35 Orders, Labs, Meds: Lab Review 12/14/20 12/14/20 12/14/20 16:35 16:35 16:35 WBC 7.58 RBC 4.72 Hgb 13.8 Hct 42.4 MCV 89.8 MCH 29.2 MCHC 32.5 RDW Coeff of Minh 12.9 Plt Count 283 Immature Gran % (Auto) 0.3 Neut % (Auto) 59.0 Lymph % (Auto) 27.8 [place] % (Auto) 9.1 Eos % (Auto) 3.0 Baso % (Auto) 0.8 Neut # (Auto) 4.5 Lymph # (Auto) 2.1 [place] # (Auto) 0.7 Eos # (Auto) 0.2 Baso # (Auto) 0.1 Immature Gran # (Auto) 0.0 PT 10.6 INR 1.00 Sodium Potassium Chloride Carbon Dioxide Anion Gap BUN Creatinine Estimated GFR (MDRD) BUN/Creatinine Ratio Glucose Calcium Total Bilirubin AST ALT Alkaline Phosphatase Troponin I < 0.012 Total Protein Albumin Globulin Albumin/Globulin Ratio D-Dimer 12/14/20 12/14/20 16:35 16:35 WBC RBC Hgb Hct MCV MCH MCHC RDW Coeff of Minh Plt Count Immature Gran % (Auto) Neut % (Auto) Lymph % (Auto) [place] % (Auto) Eos % (Auto) Baso % (Auto) Neut # (Auto) Lymph # (Auto) [place] # (Auto) Eos # (Auto) Baso # (Auto) Immature Gran # (Auto) PT INR Sodium 135.9 Potassium 4.54 Chloride 98.1 Carbon Dioxide 28.7 Anion Gap 13.64 BUN 10.3 Creatinine 0.66 Estimated GFR (MDRD) 86.00 BUN/Creatinine Ratio 15.60 Glucose 104.0 Calcium 9.90 Total Bilirubin 0.67 AST 33.2 ALT 13.5 Alkaline Phosphatase 92.5 Troponin I Total Protein 8.21 H Albumin 4.72 Globulin 3.49 Albumin/Globulin Ratio 1.35 D-Dimer 1967.17 H Orders Category Date Time Status EKG-(ED ONLY) Stat CARDIO 12/14/20 16:22 Completed NPO REMINDER: IMAGING ONCE CARE 12/14/20 17:26 Active CBC W/ AUTO DIFF Stat LAB 12/14/20 16:35 Completed COMPREHENSIVE METABOLIC PANEL Stat LAB 12/14/20 16:35 Completed D-DIMER Stat LAB 12/14/20 16:35 Completed PT WITH INR Stat LAB 12/14/20 16:35 Completed RESPIRATORY PANEL 2.1 (PCR) Stat LAB 12/14/20 Ordered TROPONIN I Stat LAB 12/14/20 16:35 Completed URINALYSIS C & S IF INDICATED Stat LAB 12/14/20 16:24 Uncollected Aspirin [Aspirin Chewable] MEDS 12/14/20 16:22 Discontinued 324 mg PO ONCE ONE Clonidine HCl [Catapres] MEDS 12/14/20 16:22 Discontinued 0.1 mg PO ONCE ONE CHEST, 1V AP ONLY Stat RADS 12/14/20 16:[address] CHEST PE PROTOCOL Stat RADS 12/14/20 17:26 Completed Medications Discontinued Medications Generic Name Dose Route Start Last Admin Trade Name Freq PRN Reason Stop Dose Admin Aspirin 324 mg 12/14/20 16:22 12/14/20 17:18 Aspirin 81 Mg Tab.Chew PO 12/14/20 16:23 324 mg ONCE ONE Administration Clonidine 0.1 mg 12/14/20 16:22 12/14/20 17:17 Clonidine Hcl 0.1 Mg Tablet PO 12/14/20 16:23 0.1 mg ONCE ONE Administration Vital Signs: Temp Pulse Resp BP Pulse Ox 12/14/20 16:04 97.6 F 82 20 204/97 H 97 MICHAEL Risk Score MICHAEL Risk Score: Risk Score Odds of by 30D 0 0.1 (0.1-0.2) 1 0.3 (0.2-0.3) 2 0.4 (0.3-0.5) 3 0.7 (0.6-0.9) 4 1.2 (1.0-1.5) 5 2.2 (1.9-2.6) 6 3.0 (2.5-3.6) 7 4.8 (3.8-6.1) Discharge Plan Discharge Patient Disposition: ADMITTED INPATIENT Discharge Problem: Lung mass Prescriptions: No Action aspirin [Adult Low Dose Aspirin] 81 MG tablet,delayed release (DR/EC) 81 mg PO DAILY RF: 0 simvastatin [Zocor] 40 MG tablet 40 mg PO BEDTIME RF: 0 alprazolam [Xanax] 0.25 MG tablet 0.25 mg PO BID RF: 0 Hydrocodone/Acetaminophen [[place] 5-325 Tablet] 1 EACH Tablet 1 ea PO TID PRN (Reason: Severe Pain) RF: 0 Metformin Hcl 500 MG Tablet 500 mg PO DAILY RF: 0 prednisone 10 MG tablet 10 mg PO BIDWM 5 Days RF: 0 albuterol sulfate 1 VIAL solution for nebulization 1 vial NEB [id number] Qty: 90 RF: 0 budesonide 1 VIAL suspension for nebulization 1 vial NEB RTDAILY Qty: 30 RF: 0 ED Provider: FERNY CORTEZ Physician Progress Note: []treatment and admit d/w Dr Guerra
[2020-12-14 16:41] LABS: BASOPHILS # (AUTO) 0.1 K/uL (0-0.2); BASOPHILS % (AUTO) 0.8 % (0.0-3.0); EOSINOPHILS # (AUTO) 0.2 K/ul (0.0-0.7); HEMATOCRIT 42.4 % (37.0-47.0); HEMOGLOBIN 13.8 g/dl (12.0-16.0); IMMATURE GRANULOCYTE % (AUTO) 0.3 % (0.0-5.0); LYMPHOCYTES # (AUTO) 2.1 K/uL (0.60-3.4); LYMPHOCYTES % (AUTO) 27.8 (10.0-50.0); MEAN CORPUSCULAR HEMOGLOBIN 29.2 pg (27.0-31.0); MEAN CORPUSCULAR HGB CONC 32.5 (31.8-35.4); MEAN CORPUSCULAR VOLUME 89.8 fl (81.0-99.0); MONOCYTES # (AUTO) 0.7 K/uL (0.4-2.0); MONOCYTES % (AUTO) 9.1 (0-10); NEUTROPHILS # (AUTO) 4.5 K/ul (2.0-6.9); PLATELET COUNT 283 10^3/uL (140-440); RDW COEFFICIENT OF VARIATION 12.9 % (11.6-14.8); RED BLOOD COUNT 4.72 10^6/ul (4.20-5.40); WHITE BLOOD COUNT 7.58 K/ul (4.6-10.2)
[2020-12-14 16:53] LABS: ALANINE AMINOTRANSFERASE 13.5 U/L (0-35); ALBUMIN 4.72 g/dL (3.5-5.0); ALKALINE PHOSPHATASE 92.5 U/L (53-141); ASPARTATE AMINO TRANSFERASE 33.2 U/L (14-36); BILIRUBIN,TOTAL 0.67 mg/dL (0.2-1.3); BLOOD UREA NITROGEN 10.3 mg/dL (7-17); CALCIUM 9.9 mg/dL (8.4-10.2); CARBON DIOXIDE 28.7 mmol/L (22-30.0); CHLORIDE 98.1 mmol/L (98-107); CREATININE 0.66 mg/dL (0.60-1.30); POTASSIUM 4.54 mmol/L (3.5-5.1); SODIUM 135.9 mmol/L (134.5-145); TOTAL PROTEIN 8.21 g/dL (6.3-8.2)
[2020-12-14 17:03] LABS: PROTHROMBIN TIME 10.6 SEC (9.3-11.0)
--- NOTE | 2020-12-14 17:27 | DI ---
EXAM: One-view chest HISTORY: Cough TECHNIQUE: Single frontal view the chest was obtained. Comparison 11/04/2018. FINDINGS: Heart is normal size. The pulmonary vasculature appears normal. There is an ill-defined opacity seen in the medial right upper lung. Findings measure approximately 4.1 cm in height, 2.5 cm transverse. Lungs are otherwise clear. There is curvature of the lower thoracic spine to the right . IMPRESSION: There is an oval opacity seen in the medial right upper lung. The etiology is unclear. CT scan of the chest can be obtained for further evaluation.
--- NOTE | 2020-12-14 18:39 | CT ---
EXAM: CT angiogram of the chest with contrast HISTORY: Elevated D-dimer TECHNIQUE: Helical imaging of the chest was performed following the intravenous administration of co ntrast. 3 mm thin axial images and coronal and sagittal MIP reconstructions were provided for interp retation. Comparison 11/01/2018. FINDINGS: No definite filling defects are identified within the branches of the pulmonary arteries. The central pulmonary arteries are normal. There is diffuse atherosclerotic disease of the thoracic aorta. The heart is normal size. Diffuse emphysematous changes are seen throughout the lungs. The re is a pleural-based mass lesion seen along the posterior probable right upper lobe of the lung. Th e lesion invades the chest wall and causes lytic destruction of the right pedicle of T5. The lesion measures approximately 3.5 cm AP, 4.8 cm transverse and approximately 4.2 cm in height.. There is elkins spicion for invasion of the is spinal canal with epidural tumor seen along the right side of the spin al canal at the T5 level. There is lytic destruction of the posterior medial aspect of the right fif th rib. IMPRESSION: There is no acute pulmonary embolism. There is a mass lesion seen along the posterior right upper lobe of the lung as described above causi ng lytic destruction of the posterior right fifth rib and lytic destruction of the right pedicle of T 5. 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 There is probable epidural tumor seen within the spinal canal at T5. MRI of the thoracic spine can be obtained for further evaluation if clinically indicated. Diffuse pulmonary emphysema. All CT scans are performed using dose optimization techniques as appropriate to the performed exam an d include at least one of the following: Automated exposure control, adjustment of the mA and/or kV according t o size, and the use of iterative reconstruction technique.
[2020-12-14] MEDS ORDERED: ATROPINE SULFATE PFS IVP PRN (19:13)
[2020-12-14] MEDS ORDERED: TYLENOL PO PRN (19:13)
[2020-12-14] MEDS ORDERED: NITROSTAT SL PRN (19:13)
[2020-12-14] MEDS ORDERED: TORADOL IVP ONE (19:16)
--- NOTE | 2020-12-14 20:15 | CT ---
EXAM: CT scan of the head with contrast HISTORY: Mets TECHNIQUE: Helical imaging of the head was performed following the intravenous administration of con trast. 5 mm thin axial images and coronal and sagittal images were provided. FINDINGS: No definite enhancing lesions are seen within the brain. There is no evidence of edema. Patchy low density changes are seen within the supratentorial white matter. The paranasal sinuses an d mastoid air cells are clear. IMPRESSION: No definite evidence for metastatic disease to the brain. If the patient symptoms persi st, MRI of the brain with contrast can be obtained for further evaluation. All CT scans are performed using dose optimization techniques as appropriate to the performed exam an d include at least one of the following: Automated exposure control, adjustment of the mA and/or kV according t o size, and the use of iterative reconstruction technique.
[2020-12-14 20:30] LABS: BORDETELLA PARAPERTUSSIS (PCR) NOT DETECTED (NOT DETECT); BORDETELLA PERTUSSIS (PCR) NOT DETECTED (NOT DETECT); CHLAMYDIA PNEUMONIAE (PCR) NOT DETECTED (NOT DETECT); CORONAVIRUS 229E (PCR) NOT DETECTED (NOT DETECT); CORONAVIRUS HKU1 (PCR) NOT DETECTED (NOT DETECT); CORONAVIRUS NL63 (PCR) NOT DETECTED (NOT DETECT); CORONAVIRUS OC43 (PCR) NOT DETECTED (NOT DETECT); HUMAN METAPNEUMOVIRUS (PCR) NOT DETECTED (NOT DETECT); HUMAN RHINOVIRUS/ENTEROV (PCR) NOT DETECTED (NOT DETECT); INFLUENZA B (PCR) NOT DETECTED (NOT DETECT); MYCOPLASMA PNEUMONIAE (PCR) NOT DETECTED (NOT DETECT); PARAINFLUENZA VIRUS 1 (PCR) NOT DETECTED (NOT DETECT); PARAINFLUENZA VIRUS 2 (PCR) NOT DETECTED (NOT DETECT); PARAINFLUENZA VIRUS 3 (PCR) NOT DETECTED (NOT DETECT); PARAINFLUENZA VIRUS 4 (PCR) NOT DETECTED (NOT DETECT); RESPIRATORY SYNCYTIAL V (PCR) NOT DETECTED (NOT DETECT); SARS_COV_2 (PCR) NOT DETECTED (NOT DETECT)
[2020-12-14 21:40] LABS: ADENOVIRUS (PCR) NOT DETECTED (NOT DETECT)
[2020-12-14 22:33] VITALS: BMI 17.3
[2020-12-14] MEDS: ALBUTEROL 0.083% NEB NEB SCH (22:35)
[2020-12-14] MEDS: XANAX PO SCH (22:49)
[2020-12-15 03:36] LABS: BASOPHILS % (AUTO) 0.5 % (0.0-3.0); EOSINOPHILS # (AUTO) 0.2 K/ul (0.0-0.7); EOSINOPHILS % (AUTO) 3.2 % (0.0-7.0); HEMATOCRIT 36.9 % (37.0-47.0); HEMOGLOBIN 12.2 g/dl (12.0-16.0); IMMATURE GRANULOCYTE % (AUTO) 0.3 % (0.0-5.0); LYMPHOCYTES # (AUTO) 1.9 K/uL (0.60-3.4); LYMPHOCYTES % (AUTO) 26.3 (10.0-50.0); MEAN CORPUSCULAR HEMOGLOBIN 29.8 pg (27.0-31.0); MEAN CORPUSCULAR HGB CONC 33.1 (31.8-35.4); MONOCYTES # (AUTO) 0.7 K/uL (0.4-2.0); MONOCYTES % (AUTO) 9.6 (0-10); NEUTROPHILS # (AUTO) 4.4 K/ul (2.0-6.9); NEUTROPHILS % (AUTO) 60.1 % (42.2-75.2); PLATELET COUNT 206 10^3/uL (140-440)
[2020-12-15 04:17] LABS: TROPONIN I < 0.012 ng/ml (0.0000-0.120)
[2020-12-15] MEDS: PULMICORT 0.5 MG/2 ML NEB SCH (04:55)
[2020-12-15] MEDS: ALBUTEROL 0.083% NEB NEB SCH ×3 (04:55→20:19)
[2020-12-15 05:22] LABS: BILIRUBIN,URINE Negative (NEGATIVE); CLARITY,URINE Clear (CLEAR); COLOR,URINE Yellow (YELLOW); GLUCOSE, URINE (UA) Negative (NEGATIVE); KETONES,URINE Negative (NEGATIVE); LEUKOCYTE ESTERASE ,URINE Negative (NEGATIVE); NITRITE,URINE Negative (NEGATIVE); PROTEIN,URINE Negative (NEGATIVE); URINE, BLOOD Negative (NEGATIVE); UROBILINOGEN,URINE 0.2 (0.2)
[2020-12-15] MEDS: TORADOL IVP PRN ×2 (05:25→12:23)
[2020-12-15 06:17] LABS: ALANINE AMINOTRANSFERASE 11.2 U/L (0-35); ALBUMIN 3.91 g/dL (3.5-5.0); ALKALINE PHOSPHATASE 77.5 U/L (53-141); ASPARTATE AMINO TRANSFERASE 27.9 U/L (14-36); BILIRUBIN,TOTAL 0.58 mg/dL (0.2-1.3); BLOOD UREA NITROGEN 9.1 mg/dL (7-17); CALCIUM 9.44 mg/dL (8.4-10.2); CARBON DIOXIDE 28.9 mmol/L (22-30.0); CHLORIDE 99.2 mmol/L (98-107); CREATININE 0.66 mg/dL (0.60-1.30); GLUCOSE 105.2 mg/dL (74-106); POTASSIUM 4.17 mmol/L (3.5-5.1); SODIUM 134.4 mmol/L (134.5-145); TOTAL PROTEIN 6.78 g/dL (6.3-8.2)
[2020-12-15] MEDS: ASPIRIN EC PO SCH (08:46)
[2020-12-15] MEDS: XANAX PO SCH ×2 (08:46→20:15)
[2020-12-15] MEDS: PREDNISONE PO SCH ×2 (08:46→17:38)
[2020-12-15] MEDS ORDERED: DILAUDID 1 MG/ML SYRINGE IVP PRN (13:10)
[2020-12-15] MEDS ORDERED: ZOFRAN 4 MG/2 ML IVP PRN (18:41)
[2020-12-16] MEDS: PULMICORT 0.5 MG/2 ML NEB SCH (04:58)
[2020-12-16] MEDS: ALBUTEROL 0.083% NEB NEB SCH ×3 (04:58→20:04)
[2020-12-16 05:23] LABS: BASOPHILS % (AUTO) 0.2 % (0.0-3.0); EOSINOPHILS # (AUTO) 0.2 K/ul (0.0-0.7); EOSINOPHILS % (AUTO) 1.9 % (0.0-7.0); HEMOGLOBIN 12.2 g/dl (12.0-16.0); IMMATURE GRANULOCYTE % (AUTO) 0.2 % (0.0-5.0); LYMPHOCYTES # (AUTO) 1.6 K/uL (0.60-3.4); LYMPHOCYTES % (AUTO) 18.7 (10.0-50.0); MEAN CORPUSCULAR HEMOGLOBIN 29.8 pg (27.0-31.0); MEAN CORPUSCULAR VOLUME 90.5 fl (81.0-99.0); MONOCYTES # (AUTO) 0.6 K/uL (0.4-2.0); MONOCYTES % (AUTO) 7.3 (0-10); NEUTROPHILS # (AUTO) 6.3 K/ul (2.0-6.9); NEUTROPHILS % (AUTO) 71.7 % (42.2-75.2); PLATELET COUNT 236 10^3/uL (140-440); RDW COEFFICIENT OF VARIATION 12.9 % (11.6-14.8); RED BLOOD COUNT 4.09 10^6/ul (4.20-5.40); WHITE BLOOD COUNT 8.73 K/ul (4.6-10.2)
[2020-12-16 05:35] LABS: ALANINE AMINOTRANSFERASE 12.7 U/L (0-35); ALBUMIN 4.16 g/dL (3.5-5.0); ALKALINE PHOSPHATASE 79.5 U/L (53-141); ASPARTATE AMINO TRANSFERASE 26.1 U/L (14-36); BILIRUBIN,TOTAL 0.44 mg/dL (0.2-1.3); BLOOD UREA NITROGEN 14.5 mg/dL (7-17); CALCIUM 9.19 mg/dL (8.4-10.2); CARBON DIOXIDE 30.2 mmol/L (22-30.0); CHLORIDE 96.3 mmol/L (98-107); CREATININE 0.74 mg/dL (0.60-1.30); GLUCOSE 128.3 mg/dL (74-106); POTASSIUM 4.43 mmol/L (3.5-5.1); SODIUM 133.6 mmol/L (134.5-145); TOTAL PROTEIN 7.07 g/dL (6.3-8.2)
[2020-12-16] MEDS: TORADOL IVP PRN ×3 (06:25→23:07)
[2020-12-16] MEDS: PREDNISONE PO SCH ×2 (09:00→17:31)
[2020-12-16] MEDS: ASPIRIN EC PO SCH (09:00)
[2020-12-16] MEDS: XANAX PO SCH ×2 (09:00→20:43)
[2020-12-16] MEDS: PROTONIX PO SCH (13:55)
[2020-12-16] MEDS: PERCOCET 5-325 PO PRN (17:34)
[2020-12-16] MEDS: COZAAR PO SCH (18:03)
[2020-12-16] MEDS: CARDIZEM PO SCH (18:03)
[2020-12-17] MEDS: PULMICORT 0.5 MG/2 ML NEB SCH (04:50)
[2020-12-17] MEDS: ALBUTEROL 0.083% NEB NEB SCH ×3 (04:50→22:20)
[2020-12-17 05:11] LABS: BASOPHILS % (AUTO) 0.2 % (0.0-3.0); EOSINOPHILS % (AUTO) 0.2 % (0.0-7.0); HEMATOCRIT 36.9 % (37.0-47.0); HEMOGLOBIN 12.3 g/dl (12.0-16.0); IMMATURE GRANULOCYTE % (AUTO) 0.4 % (0.0-5.0); LYMPHOCYTES % (AUTO) 9.9 (10.0-50.0); MEAN CORPUSCULAR HEMOGLOBIN 30.1 pg (27.0-31.0); MEAN CORPUSCULAR HGB CONC 33.3 (31.8-35.4); MEAN CORPUSCULAR VOLUME 90.4 fl (81.0-99.0); MONOCYTES # (AUTO) 0.5 K/uL (0.4-2.0); MONOCYTES % (AUTO) 4.9 (0-10); NEUTROPHILS # (AUTO) 8.1 K/ul (2.0-6.9); NEUTROPHILS % (AUTO) 84.4 % (42.2-75.2); PLATELET COUNT 237 10^3/uL (140-440); RDW COEFFICIENT OF VARIATION 12.9 % (11.6-14.8); RED BLOOD COUNT 4.08 10^6/ul (4.20-5.40); WHITE BLOOD COUNT 9.57 K/ul (4.6-10.2)
[2020-12-17 05:26] LABS: ALANINE AMINOTRANSFERASE 13.3 U/L (0-35); ALBUMIN 4.07 g/dL (3.5-5.0); ASPARTATE AMINO TRANSFERASE 25.6 U/L (14-36); BILIRUBIN,TOTAL 0.37 mg/dL (0.2-1.3); BLOOD UREA NITROGEN 18.9 mg/dL (7-17); CALCIUM 9.44 mg/dL (8.4-10.2); CARBON DIOXIDE 28.4 mmol/L (22-30.0); CHLORIDE 94.4 mmol/L (98-107); CREATININE 0.67 mg/dL (0.60-1.30); GLUCOSE 161.6 mg/dL (74-106); POTASSIUM 4.93 mmol/L (3.5-5.1); SODIUM 127.7 mmol/L (134.5-145); TOTAL PROTEIN 6.99 g/dL (6.3-8.2)
[2020-12-17] MEDS: PROTONIX PO SCH (05:52)
[2020-12-17] MEDS: PERCOCET 5-325 PO PRN (07:15)
[2020-12-17] MEDS: TORADOL IVP PRN (08:41)
--- NOTE | 2020-12-17 09:21 | PCM.PROG ---
Attending Provider: ATTENDING PROVIDER: Dr. JAN ENGLISH This patient is seen with Mary Webb, Nurse Practitioner. DATE OF SERVICE: 12/17/20 SUBJECTIVE: This 80 year old /WHITE F was hospitalized 12/14/20. Resting comfortably. The patient is still complaining of pain. She had Percocet this m orning. Toradol only helping with pain. Respiratory status is stable. She is complaining of burning and pain right upper chest through the back. REVIEW OF SYSTEMS: CONSTITUTIONAL: Weakness. No night sweats. No fatigue, malaise, lethargy. No fever or chills. HEENT: Eyes: No visual changes. No eye pain. No eye discharge. ENT: No runny nose. No epistaxis. No sinus pain. No odynophagia. No congestion. RESPIRATORY: Cough. No hemoptysis. No shortness of breath. CARDIOVASCULAR: Chest wall pain. No angina symptoms. No CHF symptoms. No atypical chest pain for CAD. No palpitations. No orthopnea.. GASTROINTESTINAL: No abdominal pain. No nausea or vomiting. No diarrhea or c onstipation. No hematemesis. No hematochezia. GENITOURINARY: No urgency. No frequency. No dysuria. No hematuria. No obstructive symptoms. No discharge. No pain. No significant abnormal bleeding. MUSCULOSKELETAL: No musculoskeletal pain; no joint swelling. NEUROLOGICAL: Awake, alert, oriented to time, place and person. No headache. No neck pain. No syncope. No seizures. No dizziness. PSYCHIATRIC: Not anxious. No depression. No suicidal thoughts. No homicidal thoughts. SKIN: No rash. No lesions. No wounds. ENDOCRINE: No unexplained weight loss. No weight gain. HEMATOLOGIC/LYMPHATIC: No anemia. No purpura. No petechiae. No prolonged or excessive bleeding. No palpable lymph nodes. PHYSICAL EXAMINATION: GENERAL: The patient is awake, alert and oriented, lying/sitting in bed in no distress. VITAL SIGNS: Temperature 97.9 F, Pulse 72, Respiratory Rate 20, BP 141/68, Pulse Ox 98% HEENT: Head normocephalic, atraumatic. Eyes: Extraocular muscles are intact. Pupils are equal, round and reactive to light and accommodation. Ears: No lesions. Nose appeared normal. Throat: No exudate or erythema. NECK: Supple. No JVD, no carotid bruit. No lymphadenopathy or thyromegaly. LUNGS: Diminished breath sounds. Clear to auscultation. Percussion note normal. Chest symmetrical. HEART: S1, S2, no S3. No murmurs. No cyanosis or clubbing. No ascites. Pulses: Dorsalis pedis and posterior tibial pulses +1 to +2 both sides. ABDOMEN: Soft. Non-tender. Bowel sounds active. No CVA tenderness. No mass felt. EXTREMITIES: No edema. Full range of motion of all extremities, equal. NEUROLOGIC: No focal deficit. Cranial nerves II through XII are grossly intact. No headache. No double vision. SKIN: Not dry. Intact. Turgor-normal. LYMPHATIC: No palpable lymph nodes/no lymphedema. MUSCULOSKELETAL: Normal joints with no swelling. Muscle tone is normal. LAB REVIEW: 12/17/20 05:06 12/17/20 05:06 12/17/20 05:06: Sodium 127.7 L, Potassium 4.93, Chloride 94.4 L, Carbon Dioxide 28.4, Anion Gap 9.83, BUN 18.9 H, Creatinine 0.67, Estimated GFR (MDRD) 84.00, BUN/Creatinine Ratio 28.20, Glucose 161.6 H, Calcium 9.44, Total Bilirubin 0.37, AST 25.6, ALT 13.3, Alkaline Phosphatase 73.0, Total Protein 6.99, Albumin 4.07, Globulin 2.92, Albumin/Globulin Ratio 1.39 12/17/20 05:06: WBC 9.57, RBC 4.08 L, Hgb 12.3, Hct 36.9 L, MCV 90.4, MCH 30.1, MCHC 33.3, RDW Coeff of Minh 12.9, Plt Count 237, Immature Gran % (Auto) 0.4, Neut % (Auto) 84.4 H, Lymph % (Auto) 9.9 L, [place] % (Auto) 4.9, Eos % (Auto) 0.2, Baso % (Auto) 0.2, Neut # (Auto) 8.1 H, Lymph # (Auto) 1.0, [place] # (Auto) 0.5, Eos # (Auto) 0.0, Baso # (Auto) 0.0, Immature Gran # (Auto) 0.0 ASSESSMENT: Please see below. 1. Right lung mass possibly extending to chest wall and spine. 2. Acute chest wall pain. 3. COPD. 4. Hyponatremia. PLAN: 1. Give Toradol now. 2. Percocet BRODERICK q.6hr with Toradol for breakthrough pain. 3. Zofran p.r.n. 4. Colace b.i.d. 5. IV NS 75 cc hr. 6. Refer to Dr. Lind 7. Refer to Dr. Pena Plan and coordination of the patient's care discussed in the presence of Case Mat sanchez and nurse. CONDITION: Stable SCRIBED BY: ANA DASILVA Counseling Psychologist scribed while in presence of service performed by Dr. English/Mary Webb APRN on 12/17/20 ([id number])
--- NOTE | 2020-12-17 09:35 | PN ---
DATE OF SERVICE: 12/15/2020 REASON FOR HOSPITALIZATION/HISTORY OF PRESENT ILLNESS: 80 year old white female hospitalized with right lung mass, chest pain. The patient has right chest wall pain with 3-4 days duration. Toradol and Decadron helping her some but still has more pain. The patient was explained about plural grande mass origin seen the posterior probably right upper lobe of the lung. Lesion is invading chest wall causing lytic destruction of the right pedicle of T5. The patient for invasion of spinal canal with epidural tumors in along the right side of the spinal canal at T 5 level. Lesion is most likely representing of bronchogenic carcinoma with invasion to the chest wall. REVIEW OF SYSTEMS: CONSTITUTIONAL: No night sweats. No fatigue, malaise, lethargy. No fever or chills. She is up and about driving, cooking and cleaning and keeping the grandkids. HEENT: Eyes: No visual changes. No eye pain. No eye discharge. ENT: No runny nose. No epistaxis. No sinus pain. No sore throat. No odynophagia. No ear pain. No congestion. RESPIRATORY: No cough, no congestion. No hemoptysis. No shortness of breath. CARDIOVASCULAR: No angina symptoms. No CHF symptoms. No atypical chest pain for CAD. No palpitations. No PND. No orthopnea. GASTROINTESTINAL: No abdominal pain. No nausea or vomiting. No diarrhea or constipation. No hematemesis. No hematochezia. GENITOURINARY: No urgency. No frequency. No dysuria. No hematuria. No obstructive symptoms. No discharge. No pain. No significant abnormal bleeding. MUSCULOSKELETAL: No musculoskeletal pain. No joint swelling. No arthritis. Right sided chest wall pain. NEUROLOGICAL: No headache. No neck pain. No syncope. No seizures. No dizziness. PSYCHIATRIC: Not anxious. No depression. No suicidal thoughts. No homicidal thoughts. SKIN: No rash. No lesions. No wounds. ENDOCRINE: No unexplained weight loss. No weight gain. HEMATOLOGIC/LYMPHATIC: No anemia. No purpura. No petechiae. No prolonged or excessive bleeding. No palpable lymph nodes. PHYSICAL EXAMINATION: GENERAL: The patient is oriented to time, place and person. VITAL SIGNS: Temperature 97.5, pulse 70, respiratory rate 18, blood pressure 150/70 and pulse ox 97%. HEENT: Head normocephalic, atraumatic. Eyes: Extraocular muscles are intact. Pupils are equal, round and reactive to light and accommodation. Ears: No lesions. Nose appeared normal. Throat: No exudate or erythema. NECK: Supple. No JVD, no carotid bruit. No lymphadenopathy or thyromegaly. LUNGS: Decreased breath sounds on right side. Percussion note normal. Chest symmetrical. HEART: S1, S2, no S3. No murmur. No cyanosis or clubbing. No ascites. Pulses: Dorsalis pedis and posterior tibial pulses +1 to +2 bilaterally. ABDOMEN: Soft. Nontender. Bowel sounds active. No CVA tenderness. No mass felt. EXTREMITIES: No edema. Full range of motion of all extremities, equal. NEUROLOGIC: No focal deficit. Cranial nerves II through XII are grossly intact. No headache, no double vision or headache. SKIN: Not dry. Intact. Turgor - normal. LYMPHATIC: No palpable lymph nodes/no lymphedema. MUSCULOSKELETAL: Normal joints with no swelling. Muscle tone is normal. LABS: hgb 12.2, hct 36, WBC 7,300 normal differential, creatinine 0.6, BUN 9, potassium 4.1. COVID negative. ASSESSMENT: 1. 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 There is a possibility of involvement of spinal canal with epidural tumor along the right side of the spinal canal at T5 level. 2. Chronic lung disease 3. History of smoking quit about 4 years ago 4. Generalized osteoarthritis PLAN: 1. The patient was explained about all these findings that were shown on CT scan of the chest with CT angiogram. The patient as mentioned the patient says that I am driving, cooking and cleaning and keeping grandkids the only reason why I came to the emergency room was for the chest pain. I wanted it to be gone with whatever medication I can give her. She wants to go home. She was not happy with the CT scan of the head that was ordered. It was negative for any acute findings. I talked to her about having strong possibility of cancer invading her spinal canal. She needs to go to specialist. According to her she said that she would rather go home once the pain is under control. She isn't going to have any further treatment done for anything when it comes to whatever she has in the lungs like surgery or radiation. Told her that there is a possibility that will affect her canal and spinal cord and may cause some neurological problems like paralysis of the lower legs etc. The patient says that she is not scared of anything. If anything else is going to happen she needs to go home as soon as possible. She will think about having anything done. She will let me know after she goes home and thinks about it. The patient is will intelligent and oriented to time, place and person. Stubborn and very independent. 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 CODE: EXTENSIVE TIME SPENT: More than 30 minutes. Plan and coordination of the patient's care discussed in the presence of nurse. KULDIP
[2020-12-17] MEDS: COZAAR PO SCH (09:36)
[2020-12-17] MEDS: PREDNISONE PO SCH (09:36)
[2020-12-17] MEDS: ASPIRIN EC PO SCH (09:36)
[2020-12-17] MEDS: CARDIZEM PO SCH ×2 (09:36→20:39)
[2020-12-17] MEDS: COLACE PO SCH ×2 (09:36→20:39)
[2020-12-17] MEDS: XANAX PO SCH ×2 (09:36→20:38)
--- NOTE | 2020-12-17 09:40 | PN ---
DATE OF SERVICE: 12/14/2020 SUBJECTIVE: The patient was brought to the emergency room by family because of having right sided chest pain. The patient had a chest x-ray and a CT scan of the chest done which showed mass with probable metastasis to the thoracic spine area. The patient has chronic lung disease with history of smoking. She also has generalized osteoarthritis with anxiety disorder. She is going to be admitted with telemetry, heavy steroids along with Toradol IV for the pain. Will be sent for sputum cytology. TIME SPENT: More than 30 minutes. Plan and coordination of the patient's care discussed in the presence of nurse. KULDIP
[2020-12-17] MEDS: SODIUM CHLORIDE 1,000 ML IV SCH ×2 (09:44→23:04)
[2020-12-17] MEDS: PERCOCET 5-325 PO SCH ×3 (11:57→23:03)
[2020-12-18] MEDS: PULMICORT 0.5 MG/2 ML NEB SCH (04:40)
[2020-12-18] MEDS: ALBUTEROL 0.083% NEB NEB SCH ×3 (04:40→21:25)
[2020-12-18 04:56] LABS: EOSINOPHILS # (AUTO) 0.1 K/ul (0.0-0.7); EOSINOPHILS % (AUTO) 1.2 % (0.0-7.0); HEMATOCRIT 34.2 % (37.0-47.0); HEMOGLOBIN 11.1 g/dl (12.0-16.0); IMMATURE GRANULOCYTE % (AUTO) 0.4 % (0.0-5.0); LYMPHOCYTES # (AUTO) 1.4 K/uL (0.60-3.4); LYMPHOCYTES % (AUTO) 19.8 (10.0-50.0); MEAN CORPUSCULAR HEMOGLOBIN 29.8 pg (27.0-31.0); MEAN CORPUSCULAR HGB CONC 32.5 (31.8-35.4); MEAN CORPUSCULAR VOLUME 91.7 fl (81.0-99.0); MONOCYTES # (AUTO) 0.5 K/uL (0.4-2.0); MONOCYTES % (AUTO) 6.6 (0-10); NEUTROPHILS # (AUTO) 5.2 K/ul (2.0-6.9); PLATELET COUNT 211 10^3/uL (140-440); RED BLOOD COUNT 3.73 10^6/ul (4.20-5.40); WHITE BLOOD COUNT 7.24 K/ul (4.6-10.2)
[2020-12-18 05:09] LABS: ALANINE AMINOTRANSFERASE 12.2 U/L (0-35); ALBUMIN 3.43 g/dL (3.5-5.0); ALKALINE PHOSPHATASE 57.9 U/L (53-141); ASPARTATE AMINO TRANSFERASE 21.5 U/L (14-36); BILIRUBIN,TOTAL 0.26 mg/dL (0.2-1.3); BLOOD UREA NITROGEN 12.8 mg/dL (7-17); CALCIUM 8.77 mg/dL (8.4-10.2); CARBON DIOXIDE 26.8 mmol/L (22-30.0); CHLORIDE 99.4 mmol/L (98-107); CREATININE 0.68 mg/dL (0.60-1.30); GLUCOSE 131.4 mg/dL (74-106); POTASSIUM 4.91 mmol/L (3.5-5.1); SODIUM 130.2 mmol/L (134.5-145); TOTAL PROTEIN 5.99 g/dL (6.3-8.2)
[2020-12-18] MEDS: PROTONIX PO SCH (05:44)
[2020-12-18] MEDS: PERCOCET 5-325 PO SCH (05:45)
[2020-12-18] MEDS ORDERED: LEVAQUIN 250 MG/50 ML D5W 250 MG/50 ML BAG IV SCH (09:00)
[2020-12-18] MEDS: TORADOL IVP PRN (09:04)
--- NOTE | 2020-12-18 09:06 | PCM.PROG ---
Attending Provider: ATTENDING PROVIDER: Dr. JAN ENGLISH This patient is seen with Mary Webb, Nurse Practitioner. DATE OF SERVICE: 12/18/20 SUBJECTIVE: This 80 year old /WHITE F was hospitalized 12/14/20. The patient's pain has improved with scheduled Percocet. However, still with any movement is increased. Blood pressure has improved. She has been eating well. She does have appointment with Dr. Goldberg on Thursday. Will do MRI of T-spine today. REVIEW OF SYSTEMS: CONSTITUTIONAL: Weakness. No night sweats. No fatigue, malaise, lethargy. No fever or chills. HEENT: Eyes: No visual changes. No eye pain. No eye discharge. ENT: No runny nose. No epistaxis. No sinus pain. No odynophagia. No congestion. RESPIRATORY: No cough, no congestion. No hemoptysis. No shortness of breath. CARDIOVASCULAR: Chest wall pain. No angina symptoms. No CHF symptoms. No atypical chest pain for CAD. No palpitations. No orthopnea.. GASTROINTESTINAL: No abdominal pain. No nausea or vomiting. No diarrhea or constipation. No hematemesis. No hematochezia. GENITOURINARY: No urgency. No frequency. No dysuria. No hematuria. No obstructive symptoms. No discharge. No pain. No significant abnormal bleeding. MUSCULOSKELETAL: Back pain. NEUROLOGICAL: Awake, alert, oriented to time, place and person. No headache. No neck pain. No syncope. No seizures. No dizziness. PSYCHIATRIC: Not anxious. No depression. No suicidal thoughts. No homicidal thoughts. SKIN: No rash. No lesions. No wounds. ENDOCRINE: No unexplained weight loss. No weight gain. HEMATOLOGIC/LYMPHATIC: No anemia. No purpura. No petechiae. No prolonged or excessive bleeding. No palpable lymph nodes. PHYSICAL EXAMINATION: GENERAL: The patient is awake, alert and oriented, lying/sitting in bed in no distress. VITAL SIGNS: Temperature 97.3 F, Pulse 66, Respiratory Rate 18, BP 127/60, Pu lse Ox 96% HEENT: Head normocephalic, atraumatic. Eyes: Extraocular muscles are intact. Pupils are equal, round and reactive to light and accommodation. Ears: No lesions. Nose appeared normal. Throat: No exudate or erythema. NECK: Supple. No JVD, no carotid bruit. No lymphadenopathy or thyromegaly. LUNGS: Diminished breath sounds. Clear to auscultation. Percussion note normal. Chest symmetrical. HEART: S1, S2, no S3. No murmurs. No cyanosis or clubbing. No ascites. Pulses: Dorsalis pedis and posterior tibial pulses +1 to +2 both sides. ABDOMEN: Soft. Non-tender. Bowel sounds active. No CVA tenderness. No mass felt. EXTREMITIES: No edema. Full range of motion of all extremities, equal. NEUROLOGIC: No focal deficit. Cranial nerves II through XII are grossly intact. No headache. No double vision. SKIN: Not dry. Intact. Turgor-normal. LYMPHATIC: No palpable lymph nodes/no lymphedema. MUSCULOSKELETAL: Normal joints with no swelling. Muscle tone is normal. LAB REVIEW: 12/18/20 04:44 12/18/20 04:44 12/18/20 04:44: Sodium 130.2 L, Potassium 4.91, Chloride 99.4, Carbon Dioxide 26.8, Anion Gap 8.91, BUN 12.8, Creatinine 0.68, Estimated GFR (MDRD) 83.00, BUN/Creatinine Ratio 18.82, Glucose 131.4 H, Calcium 8.77, Total Bilirubin 0.26, AST 21.5, ALT 12.2, Alkaline Phosphatase 57.9, Total Protein 5.99 L, Albumin 3.43 L, Globulin 2.56, Albumin/Globulin Ratio 1.33 12/18/20 04:44: WBC 7.24, RBC 3.73 L, Hgb 11.1 L, Hct 34.2 L, MCV 91.7, MCH 29.8, MCHC 32.5, RDW Coeff of Minh 13.0, Plt Count 211, Immature Gran % (Auto) 0.4, Neut % (Auto) 72.0, Lymph % (Auto) 19.8, [place] % (Auto) 6.6, Eos % (Auto) 1.2, Baso % (Auto) 0.0, Neut # (Auto) 5.2, Lymph # (Auto) 1.4, [place] # (Auto) 0.5, Eos # (Auto) 0.1, Baso # (Auto) 0.0, Immature Gran # (Auto) 0.0 ASSESSMENT: Please see below. 1. Right lung mass possibly extending to chest wall and spine. 2. Acute chest wall pain. 3. COPD. 4. Hyponatremia. 5. 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 Decrease IV NS to 50 cc/hr. 2. Levaquin 250 mg IV. 3. Appointment Thursday for Dr. Goldberg. 4. Refer to Dr. Joe Chong, Cardiothoracic Surgeon at [facility]. 5. MRI of T-spine without contrast to further evaluate the possible epidural invasion or tumor of T5. 6. Increase Percocet to 7.5 mg q.6hr. Plan and coordination of the patient's care discussed in the presence of Property Man and nurse. CONDITION: Stable SCRIBED BY: ANA DASILVA Enterprise Infrastructure Architect scribed while in presence of service performed by Dr. English/Mary Webb APRN on 12/18/20 ([id number])
--- NOTE | 2020-12-18 09:31 | HP ---
DATE OF SERVICE: 12/14/20 HISTORY OF PRESENT ILLNESS: This is an 80-year-old female who presents to the emergency room complaining of right-sided chest pain for the past 5 to 6 days. She had not had an injury. There was no radiation. She is not short of breath. She does have a long history. She was a heavy smoker and quit two to three years ago. PAST MEDICAL HISTORY: Hypertension Dyslipidemia Diabetes mellitus Type 2, last A1C was 10/29 and was 6.1 COPD, wears oxygen at night Again, quit smoking about three years ago Anemia Degenerative disk disease of the L-spine Vitamin D deficiency Carotid stenosis History of small bowel obstruction History of abnormal mammography in 2010, saw Dr. Alfredo Arriaga. The patient refuses any biphosphanates, Prolia or any treatment at all. She has had both of her Covid vaccines. Second Moderna was in August of 2020. PAST SURGICAL HISTORY: Hysterectomy Cholecystectomy Last colonoscopy was in [address] Saez REVIEW OF SYSTEMS: CONSTITUTIONAL: No night sweats. No fatigue, malaise, lethargy. No fever or chills. HEENT: Eyes: No visual changes. No eye pain. No eye discharge. ENT: No runny nose. No epistaxis. No sinus pain. No sore throat. No odynophagia. No ear pain. No congestion. RESPIRATORY: No cough, no congestion. No hemoptysis. No shortness of breath. CARDIOVASCULAR: Positive for right-sided chest pain, burning. No angina symptoms. No CHF symptoms. No atypical chest pain for CAD. No palpitations. No PND. No orthopnea. GASTROINTESTINAL: No abdominal pain. No nausea or vomiting. No diarrhea or constipation. No hematemesis. No hematochezia. GENITOURINARY: No urgency. No frequency. No dysuria. No hematuria. No obstructive symptoms. No discharge. No pain. No significant abnormal bleeding. MUSCULOSKELETAL: No musculoskeletal pain. No joint swelling. No arthritis. NEUROLOGICAL: No headache. No neck pain. No syncope. No seizures. No dizziness. PSYCHIATRIC: Not anxious. No depression. No suicidal thoughts. No homicidal thoughts. SKIN: No rash. No lesions. No wounds. ENDOCRINE: No unexplained weight loss. No weight gain. HEMATOLOGIC/LYMPHATIC: No anemia. No purpura. No petechiae. No prolonged or excessive bleeding. No palpable lymph nodes. PERSONAL/FAMILY/SOCIAL HISTORY: She is . No alcohol or ilicit drug abuse. She did quit smoking about 3 years ago. MEDICATIONS: Alprazolam 0.25 mg p.o. b.i.d. Simvastatin 40 mg p.o. bedtime Metformin 500 mg p.o. daily Aspirin 81 mg p.o. daily Hydrocodone/Acetaminophen one each p.o. t.i.d. p.r.n. Budesonide 0.5 mg/2 mL one vial neb RT daily Prednisone 10 mg p.o. b.i.d. with meal 5 days Albuterol Sulfate 2.5 mg/3 mL one vial NEB RT q.8h ALLERGIES: HYDROMORPHONE PHYSICAL EXAMINATION: VITAL SIGNS: Temperature 97.6, heart rate 82, respirations 20, BP 204/97, pulse ox 97% on room air. HEENT: Head normocephalic, atraumatic. Eyes: Extraocular muscles are intact. Pupils are equal, round and reactive to light and accommodation. Ears: No lesions. Nose appeared normal. Throat: No exudate or erythema. NECK: Supple. No JVD, no carotid bruit. No lymphadenopathy or thyromegaly. LUNGS: Diminished breath sounds bilaterally. She does have palpable tenderness of the right chest wall. Clear to auscultation. Percussion note normal. Chest symmetrical. HEART: S1, S2, no S3. No murmur. No cyanosis or clubbing. No ascites. Pulses: Dorsalis pedis and posterior tibial pulses +1 to +2 bilaterally. ABDOMEN: Soft. Nontender. Bowel sounds active. No CVA tenderness. No mass felt. EXTREMITIES: No edema. Full range of motion of all extremities, equal. NEUROLOGIC: No focal deficit. Cranial nerves II through XII are grossly intact. No headache, no double vision or headache. SKIN: Not dry. Intact. Turgor - normal. LYMPHATIC: No palpable lymph nodes/no lymphedema. MUSCULOSKELETAL: Normal joints with no swelling. Muscle tone is normal. White count 7.58, hemoglobin 13.8, hematocrit 42.4, platelets 283. Sodium 135, potassium 4.5, BUN 10, creatinine 0.66, glucose 104. EKG showed normal sinus rhythm, INR 1.0, troponin less than 0.01. Sodium 135, potassium 4.5, BUN 10, creatinine 0.66, AST 33, ALT 13.5, total protein 8.21. D. dimer 1,967. Urine is normal. Respiratory panel by PCR is all negative. Chest x-ray shows oval opacity in the medial right upper lung, etiology unclear. CTA of the chest shows no pulmonary embolism, a mass lesion along the posterior right upper lobe of the lung causing lytic destruction of the posterior right fifth rib and lytic destruction of the right pedicle of T5. The lesion is mostly likely metals sales representative of bronchogenic carcinoma with invasion of the chest wall. There is a probable epidural tumor seen within the spinal canal at T5. MRI recommended. Diffuse pulmonary emphysema. CT of the brain shows no metastatic disease. ASSESSMENT: 1. Right chest wall pain. 2. Right upper lobe lung mass with possible invasion to the chest wall, fifth rib, pedicle of T5 and probable epidural tumor at T5. 3. Hypertension. 4. COPD. 5. Former smoker. PLAN: 1. We will admit. 2. Routine telemetry orders. 3. CBC, CMP daily. 4. Toradol 30 mg IV q.8hr p.r.n. for pain. 5. Percocet 5 q.6hr p.r.n. for pain. 6. Start Cardizem 60 mg p.o. b.i.d. 7. Losartan 50 mg p.o. daily. 8. Regular diet. 9. Continue all home medications. 10. Decadron 4 mg IM now. 11. 02 at 1 to 2L as needed. 12. Will follow closely. TIME SPENT: More than 70 minutes. MTDD
--- NOTE | 2020-12-18 09:48 | PN ---
DATE OF SERVICE: 12/18/20 SUBJECTIVE: The patient is doing a lot better. She has very little pain. The patient is going to undergo MRI. She has already been referred to Hematology/Oncologist and radiation specialist to be seen by [facility] Department on Thursday. Sodium is better. Hydration status is improved. The patient was seen and examined with the nurse practitioner. TIME SPENT: More than 30 minutes. Plan and coordination of the patient's care discussed in the presence of nurse. KULDIP
--- NOTE | 2020-12-18 09:52 | PN ---
DATE OF SERVICE: 12/17/20 SUBJECTIVE: The patient is examined with the nurse practitioner. The patient's condition is stable. The pain is more or less well-controlled. We need to get an MRI done so that we know the attention of her invading bronchogenic carcinoma, if it has gone to the spinal cord or not. Discharge or transfer. The patient will be referred to radiation specialist and pulling unit floorhand/oncogologist. TIME SPENT: More than 30 minutes. Plan and coordination of the patient's care discussed in the presence of nurse. KULDIP
[2020-12-18] MEDS: XANAX PO SCH ×2 (10:48→20:39)
[2020-12-18] MEDS: ASPIRIN EC PO SCH (10:49)
[2020-12-18] MEDS: COLACE PO SCH ×2 (10:49→20:39)
[2020-12-18] MEDS: COZAAR PO SCH (10:49)
[2020-12-18] MEDS: LEVAQUIN 500 MG/100 ML D5W 500 MG/100 ML BAG IV SCH (10:50)
[2020-12-18] MEDS: CARDIZEM PO SCH ×2 (10:50→20:39)
[2020-12-18] MEDS: PERCOCET 7.5-325 PO SCH ×2 (11:34→17:31)
--- NOTE | 2020-12-18 13:30 | MRI ---
EXAM: MRI thoracic spine with and without contrast Date: 12/18/2020 COMPARISON: CT chest 12/14/2020 HISTORY: Epidural tumor with possible invasion at T5 level. Upper back pain. TECHNIQUE: Routine MR images of the thoracic spine were obtained before and after the intravenous ad ministration of 9 mL of clariscan via the right hand IV. FINDINGS: Thoracic spinal cord is normal in signal and morphology. No abnormal enhancement of the s candice cord. No spinal cord compression. The spinal cord is deviated to the left of midline at the l evel of T5 of the thoracic spine. This is secondary to an enhancing osteolytic 3.9 x 3.3 x 4.4 cm ma ss centered on the right fifth rib, posterior right sided vertebral body, right pedicle, right transv erse process, right lamina, and right sided facet joints at the T5 level. This mass extends into the right sided lateral epidural space and right-sided anterior epidural space. No intradural extramedu llary masses. No evidence of spinal AV fistula. No acute fracture. Chronic mild anterior wedging o f T11 and T12 vertebral bodies. No spondylolisthesis. No significant disc height narrowing. Benig n hemangioma seen at T9 and T10 vertebral bodies. T1-T2: No significant central spinal canal or neural foramen stenosis. T2-T3: No significant central spinal canal or neural foramen stenosis. T3-T4: No significant central spinal canal or neural foramen stenosis. T4-T5: Mild right neural foramen stenosis secondary to soft tissue tumor. No significant central spi nal canal or left neural foramen stenosis. T5-T6: Severe right neural foramen stenosis secondary to soft tissue tumor. Moderate central spinal canal stenosis. No significant left neural foramen stenosis. T6-T7: No significant central spinal canal or neural foramen stenosis. T7-T8: Moderate bilateral neural foramen stenosis from facet hypertrophy. No significant central spi nal canal stenosis. T8-T9: Severe bilateral neural foramen stenosis from facet hypertrophy. No significant central spina l canal stenosis. T9-T10: Moderate bilateral neural foramen stenosis from facet hypertrophy. No significant central sp inal canal stenosis. T10-T11: Mild bilateral neural foramen stenosis from facet hypertrophy. Moderate diffuse disc bulge and mild central spinal canal stenosis. T11-T12: Mild diffuse disc bulge and mild central spinal canal stenosis. No significant neural alvarado en stenosis. T12-L1: Mild diffuse disc bulge. No significant central spinal canal or neural foramen stenosis. IMPRESSION: 1. Enhancing osteolytic mass centered on the right fifth rib, posterior right sided T5 vertebral bod y, right-sided posterior elements of T5, and right-sided epidural space of T5 deviating the spinal co rd to the left of midline without spinal cord compression. This is worrisome for metastatic disease. Differential diagnosis would include plasmacytoma. 2. Deviation of the spinal cord to the left of midline by the T5 mass, which occupies the right side d lateral epidural space and the right-sided anterior epidural space. No spinal cord compression or spinal cord invasion.
[2020-12-18] MEDS: SODIUM CHLORIDE 1,000 ML IV SCH (17:12)
[2020-12-19] MEDS: PERCOCET 7.5-325 PO SCH ×4 (00:45→17:37)
[2020-12-19] MEDS: PULMICORT 0.5 MG/2 ML NEB SCH (04:45)
[2020-12-19] MEDS: ALBUTEROL 0.083% NEB NEB SCH ×3 (04:45→21:45)
[2020-12-19 04:52] LABS: BASOPHILS # (AUTO) 0.1 K/uL (0-0.2); BASOPHILS % (AUTO) 0.6 % (0.0-3.0); EOSINOPHILS # (AUTO) 0.3 K/ul (0.0-0.7); EOSINOPHILS % (AUTO) 3.8 % (0.0-7.0); HEMATOCRIT 36.8 % (37.0-47.0); HEMOGLOBIN 11.5 g/dl (12.0-16.0); IMMATURE GRANULOCYTE % (AUTO) 0.5 % (0.0-5.0); LYMPHOCYTES # (AUTO) 1.8 K/uL (0.60-3.4); LYMPHOCYTES % (AUTO) 22.6 (10.0-50.0); MEAN CORPUSCULAR HEMOGLOBIN 29.6 pg (27.0-31.0); MEAN CORPUSCULAR HGB CONC 31.3 (31.8-35.4); MEAN CORPUSCULAR VOLUME 94.8 fl (81.0-99.0); MONOCYTES # (AUTO) 0.7 K/uL (0.4-2.0); MONOCYTES % (AUTO) 9.2 (0-10); NEUTROPHILS # (AUTO) 5.1 K/ul (2.0-6.9); NEUTROPHILS % (AUTO) 63.3 % (42.2-75.2); PLATELET COUNT 186 10^3/uL (140-440); RDW COEFFICIENT OF VARIATION 13.2 % (11.6-14.8); RED BLOOD COUNT 3.88 10^6/ul (4.20-5.40); WHITE BLOOD COUNT 8.07 K/ul (4.6-10.2)
[2020-12-19 05:08] LABS: ALANINE AMINOTRANSFERASE 15.7 U/L (0-35); ALBUMIN 3.48 g/dL (3.5-5.0); ALKALINE PHOSPHATASE 62.7 U/L (53-141); ASPARTATE AMINO TRANSFERASE 26.6 U/L (14-36); BILIRUBIN,TOTAL 0.24 mg/dL (0.2-1.3); BLOOD UREA NITROGEN 14.2 mg/dL (7-17); CALCIUM 8.85 mg/dL (8.4-10.2); CARBON DIOXIDE 26.8 mmol/L (22-30.0); CHLORIDE 101.1 mmol/L (98-107); CREATININE 0.66 mg/dL (0.60-1.30); GLUCOSE 96.3 mg/dL (74-106); POTASSIUM 4.44 mmol/L (3.5-5.1); TOTAL PROTEIN 6.1 g/dL (6.3-8.2)
[2020-12-19] MEDS: PROTONIX PO SCH (05:42)
[2020-12-19] MEDS: CARDIZEM PO SCH ×2 (08:34→20:26)
[2020-12-19] MEDS: COLACE PO SCH ×2 (08:34→20:26)
[2020-12-19] MEDS: COZAAR PO SCH (08:34)
[2020-12-19] MEDS: ASPIRIN EC PO SCH (08:34)
[2020-12-19] MEDS: XANAX PO SCH ×2 (08:35→20:26)
[2020-12-19] MEDS: LEVAQUIN 500 MG/100 ML D5W 500 MG/100 ML BAG IV SCH (08:35)
[2020-12-19] MEDS: SODIUM CHLORIDE 1,000 ML IV SCH ×2 (11:59)
--- NOTE | 2020-12-19 13:34 | PN ---
DATE OF SERVICE: 12/16/20 SUBJECTIVE: 80-year-old white female hospitalized with right-sided pleuritic type of pain. The patient has right upper lung posterior involvement with the mass which has extended into the chest wall and also to the spinal canal and T5 pedicle. It has responded following steroid to some extent. Yesterday was given Dilaudid which she ended up having a reaction to it with nausea and vomiting. Will start her on Lortab and if available otherwise may have to use Oxycodone. She has taken them before and had no problems with it. REVIEW OF SYSTEMS: CONSTITUTIONAL: No night sweats. No fatigue, malaise, lethargy. No fever or chills. HEENT: Eyes: No visual changes. No eye pain. No eye discharge. ENT: No runny nose. No epistaxis. No sinus pain. No sore throat. No odynophagia. No congestion. RESPIRATORY: No cough, no congestion. No hemoptysis. No shortness of breath. CARDIOVASCULAR: No angina symptoms. No CHF symptoms. No atypical chest pain for CAD. No palpitations. No PND. No orthopnea. GASTROINTESTINAL: No abdominal pain. No nausea or vomiting. No diarrhea or constipation. No hematemesis. No hematochezia. GENITOURINARY: No urgency. No frequency. No dysuria. No hematuria. No obstructive symptoms. No discharge. No pain. No significant abnormal bleeding. MUSCULOSKELETAL: No musculoskeletal pain; no joint swelling. NEUROLOGICAL: No headache. No neck pain. No syncope. No seizures. No dizziness. PSYCHIATRIC: Not anxious. No depression. No suicidal thoughts. No homicidal thoughts. SKIN: No rash. No lesions. No wounds. ENDOCRINE: No unexplained weight loss. No weight gain. HEMATOLOGIC/LYMPHATIC: No anemia. No purpura. No petechiae. No prolonged or excessive bleeding. No palpable lymph nodes. PHYSICAL EXAMINATION: VITAL SIGNS: Temperature 97.5, pulse 75, respiratory rate 20, blood pressure 150/63, pulse ox 96%. HEENT: Head normocephalic, atraumatic. Eyes: Extraocular muscles are intact. Pupils are equal, round and reactive to light and accommodation. Ears: No lesions. Nose appeared normal. Throat: No exudate or erythema. NECK: Supple. No JVD, no carotid bruit. No lymphadenopathy or thyromegaly. LUNGS: Decreased breath sounds but clear to auscultation. Percussion note normal. Chest symmetrical. HEART: S1, S2, no S3. No murmurs. No cyanosis or clubbing. No ascites. Pulses: Dorsalis pedis and posterior tibial pulses +1 to +2 bilaterally. ABDOMEN: Soft. Nontender. Bowel sounds active. No CVA tenderness. No mass felt. EXTREMITIES: No edema. Full range of motion of all extremities, equal. NEUROLOGIC: No focal deficit. Cranial nerves II through XII are grossly intact. No headache. No double vision. SKIN: Not dry. Intact. Turgor - normal. LYMPHATIC: No palpable lymph nodes/no lymphedema. MUSCULOSKELETAL: Normal joints with no swelling. Muscle tone is normal. LABS: Hemoglobin 12.2, hematocrit 37, WBC 8,700, normal differential. Creatinine 0.7, BUN 14, potassium 4.4. ASSESSMENT: 1. 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 2. 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 3. Severe chronic lung disease. PLAN: 1. Give Lortab 5 mg t.i.d. or Oxycodone 5 mg t.i.d. 2. Protonix 40 mg p.o. q.a.m. 3. The patient is on a fall risk. 4. The nursing staff was explained about spinal canal involvement. 5. The patient was again explained in detail about the possibility of paralysis that could happen, any injury, with a jolt or with a fall. 6. She is not to drive until further instructed. 7. The patient agreed to be referred to radiation specialist at [facility], [place] and also pulmonary M.D. ADDENDUM: The patient has hypertension systolic more than 160 in spite of the fact that she was given Oxycodone and Toradol for the pain. The patient is going to be started on Cardizem 60 mg twice a day along with Losartan 50 p.o. now and q.a.m. The patient may undergo echocardiogram without any myocardial involvement which I don't think the patient has. The patient is stable. Prognosis is poor. CONDITION: Stable. TIME SPENT: More than 30 minutes. Plan and coordination of the patient's care discussed in the presence of nurse. KULDIP
[2020-12-20] MEDS: PERCOCET 7.5-325 PO SCH ×3 (00:15→11:49)
[2020-12-20] MEDS: ALBUTEROL 0.083% NEB NEB SCH ×2 (04:55→14:21)
[2020-12-20] MEDS: PULMICORT 0.5 MG/2 ML NEB SCH (04:55)
[2020-12-20 05:07] LABS: BASOPHILS % (AUTO) 0.5 % (0.0-3.0); EOSINOPHILS # (AUTO) 0.3 K/ul (0.0-0.7); EOSINOPHILS % (AUTO) 3.9 % (0.0-7.0); HEMATOCRIT 39.5 % (37.0-47.0); HEMOGLOBIN 12.4 g/dl (12.0-16.0); IMMATURE GRANULOCYTE # (AUTO) 0.1 (0.0-1.0); IMMATURE GRANULOCYTE % (AUTO) 0.8 % (0.0-5.0); LYMPHOCYTES # (AUTO) 1.5 K/uL (0.60-3.4); LYMPHOCYTES % (AUTO) 19.2 (10.0-50.0); MEAN CORPUSCULAR HEMOGLOBIN 29.5 pg (27.0-31.0); MEAN CORPUSCULAR HGB CONC 31.4 (31.8-35.4); MEAN CORPUSCULAR VOLUME 93.8 fl (81.0-99.0); MONOCYTES # (AUTO) 0.7 K/uL (0.4-2.0); MONOCYTES % (AUTO) 9.3 (0-10); NEUTROPHILS # (AUTO) 5.2 K/ul (2.0-6.9); NEUTROPHILS % (AUTO) 66.3 % (42.2-75.2); PLATELET COUNT 171 10^3/uL (140-440); RDW COEFFICIENT OF VARIATION 13.3 % (11.6-14.8); RED BLOOD COUNT 4.21 10^6/ul (4.20-5.40); WHITE BLOOD COUNT 7.85 K/ul (4.6-10.2)
[2020-12-20 05:19] LABS: ALANINE AMINOTRANSFERASE 28.8 U/L (0-35); ALBUMIN 3.92 g/dL (3.5-5.0); ALKALINE PHOSPHATASE 81.7 U/L (53-141); ASPARTATE AMINO TRANSFERASE 48.2 U/L (14-36); BILIRUBIN,TOTAL 0.47 mg/dL (0.2-1.3); BLOOD UREA NITROGEN 10.7 mg/dL (7-17); CALCIUM 9.08 mg/dL (8.4-10.2); CARBON DIOXIDE 30.4 mmol/L (22-30.0); CREATININE 0.66 mg/dL (0.60-1.30); GLUCOSE 101.1 mg/dL (74-106); POTASSIUM 4.14 mmol/L (3.5-5.1); SODIUM 133.1 mmol/L (134.5-145); TOTAL PROTEIN 6.74 g/dL (6.3-8.2)
[2020-12-20] MEDS: PROTONIX PO SCH (05:35)
[2020-12-20] MEDS ORDERED: CITRATE OF MAGNESIA PO ONE (08:34)
[2020-12-20] MEDS: SODIUM CHLORIDE 1,000 ML IV SCH (08:50)
[2020-12-20] MEDS: ASPIRIN EC PO SCH (09:00)
[2020-12-20] MEDS: XANAX PO SCH (09:00)
[2020-12-20] MEDS: COLACE PO SCH (09:00)
[2020-12-20] MEDS ORDERED: AMITIZA PO SCH (09:00)
[2020-12-20] MEDS: COZAAR PO SCH (09:01)
[2020-12-20] MEDS: CARDIZEM PO SCH (09:01)
[2020-12-20] MEDS: LEVAQUIN 500 MG/100 ML D5W 500 MG/100 ML BAG IV SCH (09:01)
--- NOTE | 2020-12-20 09:13 | PCM.PROG ---
Attending Provider: ATTENDING PROVIDER: Dr. JAN ENGLISH This patient is seen with Mary Webb, Nurse Practitioner. DATE OF SERVICE: 12/20/20 SUBJECTIVE: This 80 year old /WHITE F was hospitalized 12/14/20. The patient's pain is controlled with Percocet 7.5 mg. She has an appointment with Dr. Goldberg, Oncologist tomorrow. Also, an appointment with Dr. Joe Chong, Cardiothoracic surgeon on Thursday. She has been eating moderately well, has nebulizer and and Oxycodone at home already. REVIEW OF SYSTEMS: CONSTITUTIONAL: Weakness. No night sweats. No fatigue, malaise, lethargy. No fever or chills. HEENT: Eyes: No visual changes. No eye pain. No eye discharge. ENT: No runny nose. No epistaxis. No sinus pain. No odynophagia. No congestion. RESPIRATORY: No cough, no congestion. No hemoptysis. No shortness of breath. CARDIOVASCULAR: Right chest wall pain. No angina symptoms. No CHF symptoms. No atypical chest pain for CAD. No palpitations. No orthopnea.. GASTROINTESTINAL: No abdominal pain. No nausea or vomiting. No diarrhea or constipation. No hematemesis. No hematochezia. GENITOURINARY: No urgency. No frequency. No dysuria. No hematuria. No obstructi ve symptoms. No discharge. No pain. No significant abnormal bleeding. MUSCULOSKELETAL: No musculoskeletal pain; no joint swelling. NEUROLOGICAL: Awake, alert, oriented to time, place and person. No headache. No neck pain. No syncope. No seizures. No dizziness. PSYCHIATRIC: Not anxious. No depression. No suicidal thoughts. No homicidal thoughts. SKIN: No rash. No lesions. No wounds. ENDOCRINE: No unexplained weight loss. No weight gain. HEMATOLOGIC/LYMPHATIC: No anemia. No purpura. No petechiae. No prolonged or excessive bleeding. No palpable lymph nodes. PHYSICAL EXAMINATION: GENERAL: The patient is awake, alert and oriented, lying/sitting in bed in no distress. VITAL SIGNS: Temperature 97.9 F, Pulse 81, Respiratory Rate 18, BP 139/73, Pulse Ox 93% HEENT: Head normocephalic, atraumatic. Eyes: Extraocular muscles are intact. Pupils are equal, round and reactive to light and accommodation. Ears: No lesions. Nose appeared normal. Throat: No exudate or erythema. NECK: Supple. No JVD, no carotid bruit. No lymphadenopathy or thyromegaly. LUNGS: Diminished breath sounds. Clear to auscultation. Percussion note normal. Chest symmetrical. HEART: S1, S2, no S3. No murmurs. No cyanosis or clubbing. No ascites. Pulses: Dorsalis pedis and posterior tibial pulses +1 to +2 both sides. ABDOMEN: Soft. Non-tender. Bowel sounds active. No CVA tenderness. No mass felt. EXTREMITIES: No edema. Full range of motion of all extremities, equal. NEUROLOGIC: No focal deficit. Cranial nerves II through XII are grossly intact. No headache. No double vision. SKIN: Not dry. Intact. Turgor-normal. LYMPHATIC: No palpable lymph nodes/no lymphedema. MUSCULOSKELETAL: Normal joints with no swelling. Muscle tone is normal. LAB REVIEW: 12/20/20 04:43 12/20/20 04:43 12/20/20 04:43: Sodium 133.1 L, Potassium 4.14, Chloride 97.0 L, Carbon Dioxide 30.4 H, Anion Gap 9.84, BUN 10.7, Creatinine 0.66, Estimated GFR (MDRD) 86.00, BUN/Creatinine Ratio 16.21, Glucose 101.1, Calcium 9.08, Total Bilirubin 0.47, AST 48.2 H, ALT 28.8, Alkaline Phosphatase 81.7, Total Protein 6.74, Albumin 3.92, Globulin 2.82, Albumin/Globulin Ratio 1.39 12/20/20 04:43: WBC 7.85, RBC 4.21, Hgb 12.4, Hct 39.5, MCV 93.8, MCH 29.5, MCHC 31.4 L, RDW Coeff of Minh 13.3, Plt Count 171, Immature Gran % (Auto) 0.8, Neut % (Auto) 66.3, Lymph % (Auto) 19.2, Erie % (Auto) 9.3, Eos % (Auto) 3.9, Baso % (Auto) 0.5, Neut # (Auto) 5.2, Lymph # (Auto) 1.5, [place]rie # (Auto) 0.7, Eos # (Auto) 0.3, Baso # (Auto) 0.0, Immature Gran # (Auto) 0.1 ASSESSMENT: Please see below. 1. Right lung mass probably extending to chest wall and spine. 2. Acute chest wall pain. 3. COPD. 4. Hyponatremia. 5. Sputum culture positive for Acinetobacter Baumannii Complex. PLAN: 1. D/C home today. 2. Referral to [facility], Hematology/Oncology tomorrow. 3. Referral to Dr. Joe Chong, Cardiothoracic surgeon on Thursday. 4. Pending referral to Dr. May/Will. 5. The patient is to followup in the office next week with Mary Webb APRN/Dr. English. 6. Percocet #40 7.5 mg q.6hr p.r.n. 7. Advised to rest at home. 8. Levaquin 250 mg daily times 5 days for positive Acinetobacter. Plan and coordination of the patient's care discussed in the presence of Lace Stripper and nurse. CONDITION: Stable SCRIBED BY: ANA DASILVA Cia Agent scribed while in presence of service performed by Dr. English/Mary Webb APRN on 12/20/20 ([id number])
[2020-12-20] MEDS ORDERED: GLYCERIN SUPPOSITORY RC ONE (13:48)
[2020-12-20 13:54] VITALS: BP 112/66; TEMP 96.7
--- NOTE | 2020-12-20 15:48 | CM.DICTOOL ---
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 ANN OSTEOPOROSIS REFUSES ANY BISPHOSPHONATES, PROLIA OR ANY TREATMENT AT ALL ANXIETY CHRONIC BACK PAIN SMALL BOWEL OBSTRUCTION HAS HAD BOTH OF HER COVID VACCINES. SECOND MODERNA WAS AUGUST OF 2020 SURGICAL HX: CHOLECYSTECTOMY HYSTERECTOMY BENIGN BREAST BIOPSY LAST COLONOSCOPY WAS IN [address] PEÑALOZA CODE STATUS: DO NOT INTUBATE, CPR ONLY LAST VITALS Temp Pulse Resp BP Pulse Ox 97.9 F 81 18 139/73 97 12/20/20 05:44 12/20/20 05:44 12/20/20 05:44 12/20/20 05:44 12/20/20 09:55 TAKE THESE MEDICATIONS AT HOME Albuterol Sulfate (Albuterol Sulfate 0.083% Vial.Jerrod) 2.5 mg NEB RTQ8H [facility] Last Admin: 12/20/20 04:55 Dose: 2.5 mg Alprazolam (Alprazolam 0.25 Mg Tablet) 0.25 mg PO BID [facility] Last Admin: 12/20/20 09:00 Dose: 0.25 mg Aspirin (Aspirin 81 Mg Tablet.) 81 mg PO DAILY [facility] Last Admin: 12/20/20 09:00 Dose: 81 mg Budesonide (Budesonide 0.5 Mg/2 Ml Vial.Jerrod) 0.5 mg NEB RTDAILY [facility] Last Admin: 12/20/20 04:55 Dose: 0.5 mg Diltiazem HCl (Diltiazem Hcl 60 Mg Tablet) 60 mg PO Q12HR [facility] -- ( NEW) Last Admin: 12/20/20 09:01 Dose: 60 mg Losartan Potassium (Losartan Potassium 25 Mg Tablet) 50 mg PO DAILY [facility] -- ( NEW) Last Admin: 12/20/20 09:01 Dose: 50 mg Lubiprostone (Lubiprostone 24 Mcg Capsule) 24 mcg PO BID [facility] -- ( NEW) Last Admin: 12/20/20 09:01 Dose: 24 mcg Oxycodone/Acetaminophen (Oxycodone/Acetaminophen 7.5/325 Mg Tablet) 1 tab PO Q6HR [facility] -- ( NEW) Last Admin: 12/20/20 11:49 Dose: 1 tab Pantoprazole Sodium (Pantoprazole Sodium 40 Mg Tablet.Dr) 40 mg PO QDAC [facility] -- ( NEW) Last Admin: 12/20/20 05:35 Dose: 40 mg MIRALAX 17 GRAMS IN 8 OZ OF FLUIDS PO DAILY( START 12/21/2020) -- (NEW) LEVAQUIN 250 MG PO DAILY X 5 DAYS, (START 12/21/2020) -- ( NEW) METFORMIN 500 MG PO DAILY ZOCOR 40 MG PO AT BEDTIME ALLERGIES hydromorphone [From Dilaudid] Adverse Reaction (Verified 12/16/20 12:24) Vomiting DISCONTINUED MEDICATIONS Prednisone (Prednisone 10 Mg Tablet) 10 mg PO BIDWM [facility] HYDROCODONE/ACETAMINOPHIN ( NORCO 5-325 MG ) TABLETS NEW PRESCRIPTIONS: MIRALAX 17 GRAMS IN 8 OZ OF FLUIDS PO DAILY( START 12/21/2020) AMITIZA 24 MCG BID PO PERCOCET 7.5 MG PO Q 6 HOURS PRN # 40 LEVAQUIN 250 MG PO DAILY X 5 DAYS, (START 12/21/2020) PROTONIX 40 MG PO AC DAILY ( START 12/21/2020) CARDIZEM 60 MG PO Q 12 HOURS ( START THIS PM AT 900 ) LOSARTAN 50 MG DAILY PO 9 START IN THE AM (12/21/2020) SMOKING: N/A DISEASE SPECIFIC EDUCATION: RESPIRATORY INFECTION LUNG MASS PAIN HYPERTENSION CONSTIPATION PREVENTION COPD MANAGEMENT FALL PRECAUTIONS COVID LAB REVIEW: 12/20/20 04:43 12/20/20 04:43 12/20/20 04:43: Sodium 133.1 L, Potassium 4.14, Chloride 97.0 L, Carbon Dioxide 30.4 H, Anion Gap 9.84, BUN 10.7, Creatinine 0.66, Estimated GFR (MDRD) 86.00, BUN/Creatinine Ratio 16.21, Glucose 101.1, Calcium 9.08, Total Bilirubin 0.47, AST 48.2 H, ALT 28.8, Alkaline Phosphatase 81.7, Total Protein 6.74, Albumin 3.92, Globulin 2.82, Albumin/Globulin Ratio 1.39 12/20/20 04:43: WBC 7.85, RBC 4.21, Hgb 12.4, Hct 39.5, MCV 93.8, MCH 29.5, MCHC 31.4 L, RDW Coeff of Minh 13.3, Plt Count 171, Immature Gran % (Auto) 0.8, Neut % (Auto) 66.3, Lymph % (Auto) 19.2, Harney % (Auto) 9.3, Eos % (Auto) 3.9, Baso % (Auto) 0.5, Neut # (Auto) 5.2, Lymph # (Auto) 1.5, Harney # (Auto) 0.7, Eos # (Auto) 0.3, Baso # (Auto) 0.0, Immature Gran # (Auto) 0.1 PLAN: DISCHARGE: HOME TODAY INDEPENDENT WITH ADL'S ACTIVITY: UP TOLERATED WITH FREQUENT REST PERIODS CHANGE POSITIONS SLOWLY STAY IN DOORS WHILE HOT AND HUMID BLEEDING PRECAUTIONS ( ON ASPIRIN, THOUGH RISK IS LOW) FALL PRECAUTIONS FOLLOW PANDEMIC GUIDELINES DO NOT DRIVE WHILE TAKING PAIN MEDICATION, MAY MAKE DROWSY DIET: REGULAR MD FOLLOW-UP : SEE DR. GUERRA/EVERTON LYONS APRN/ TIM MUÑOZ APRN IN THE OFFICE ON DECEMBER 27, 2020 @ 1030 AM. CALL OFFICE IF CONCERNS OR QUESTIONS @ [phone] IF AN EMERGENCY GO TO THE NEAREST EMERGENCY ROOM AN APPOINTMENT : ( TAKE DISC PROVIDED) IS SCHEDULED ON December AT 12:[address] KYLIE ADAME (ONCOLOGY/HEMATOLOGY) PLEASE ARRIVE AT NOON TO COMPLETE PAPERWORK TAKE MASK, INSURANCE CARDS, QA AUTOMATION ARCHITECT LICENSE OFFICE IS LOCATED AT [address] [place] [address] [address]LO[address] ([facility] IS THE NEXT BUILD[facility] PAST [facility]) PHONE: AN APPOINTMENT : ( TAKE DISC PROVIDED) IS SCHEDULED WITH DR. YAMILETH JAMES (CARDIO THORACIC SURGEON) ON December AT 2:30 PM. PLEASE ARRIVE AT 2:15 PM TO COMPLETE PAPERWORK. TAKE MASK, INSURANCE CARDS AND QA AUTOMATION ARCHITECT LICENSE. ALSO TAKE CD WITH X-RAYS ON IT FOR DR. JAMES. THE OFFICE IS LOCATED AT [address] [place] [address] BUILDING [address]RD FLO[address] PHONE NUMBER: INFORMATION AND REQUEST FOR APPOINTMENT : ( TAKE DISC PROVIDED )TO [facility], AMOR CISNEROS STATED WILL CALL PATIENT WITH DATE AND TIME. [address] [place] [address] # OXYGEN : USE BEFORE 2 LITERS A MINUTE PER NASAL CANULA CODE STATUS: DO NOT INTUBATE, CPR ONLY MRS. CONLEY HAS REMAINED ALERT AND ORIENTED X 4. SHE IS ON OXYGEN AT HOME. MINIMAL SOA WITH ACTIVITY. RT BREAST PAIN THAT RADIATES TO HER BACK IS BETTER CONTROLLED WITH MEDICATION INCREASE. SHE AMBULATES WITHOUT ANY DEVICE AND PLANS TO RETURN TO INDEPENDENCE AT HOME WITH PERIODIC ASSIST FROM FAMILY AND FRIENDS. SKIN IS WARM DRY AND INTACT. SHE IS EATING 75 TO 100% OF HER MEALS WITH ADEQUATE FLUID INTAKE. SHE IS CONTINENT OF BOWEL AND BLADDER WITH LAST BM 12/15/2020. SHE TRIED MAG CITRATE AND STATED IT MADE HER NAUSEATED. SHE DOES NOT WANT ANYTHING ELSE AND WANTS TO GO HOME. SHE VERBALIZED THE FOLLOW UP APPOINTMENTS MADE AND INSTRUCTIONS WITH SPECIFICS HAVE BEEN PROVIDED. MD EVERTON JAY APRN ALYCE HANNAN, APRN
[2020-12-21] MEDS ORDERED: ASPIRIN EC PO SCH (08:30)
--- NOTE | 2020-12-21 10:35 | PN ---
DATE OF SERVICE: 12/19/2020 SUBJECTIVE: 80 year old white female hospitalized with lung mass. The patient has right sided chest wall pain. The patient's problem is that the tumor has extended to spinal canal. Spinal cord has been effected has been but no destruction or immediate involvement of spinal cord noted. The patient is up and about. The patient does have any pain anymore. Pain is well controlled with the pain medications. REVIEW OF SYSTEMS: CONSTITUTIONAL: No night sweats. No fatigue, malaise, lethargy. No fever or chills. HEENT: Eyes: No visual changes. No eye pain. No eye discharge. ENT: No runny nose. No epistaxis. No sinus pain. No sore throat. No odynophagia. No congestion. RESPIRATORY: No cough, no congestion. No hemoptysis. No shortness of breath. CARDIOVASCULAR: No angina symptoms. No CHF symptoms. No atypical chest pain for CAD. No palpitations. No PND. No orthopnea. GASTROINTESTINAL: No abdominal pain. No nausea or vomiting. No diarrhea or constipation. No hematemesis. No hematochezia. Appetite is normal. GENITOURINARY: No urgency. No frequency. No dysuria. No hematuria. No obstructive symptoms. No discharge. No pain. No significant abnormal bleeding. MUSCULOSKELETAL: No musculoskeletal pain; no joint swelling. NEUROLOGICAL: No headache. No neck pain. No syncope. No seizures. No dizziness. PSYCHIATRIC: Not anxious. No depression. No suicidal thoughts. No homicidal thoughts. SKIN: No rash. No lesions. No wounds. ENDOCRINE: No unexplained weight loss. No weight gain. HEMATOLOGIC/LYMPHATIC: No anemia. No purpura. No petechiae. No prolonged or excessive bleeding. No palpable lymph nodes. PHYSICAL EXAMINATION: GENERAL: The patient is up and about and oriented to time, place and person. VITAL SIGNS: Temperature 97.7, pulse 76, respiratory rate 16, blood pressure 134/65 and pulse ox 94%. HEENT: Head normocephalic, atraumatic. Eyes: Extraocular muscles are intact. Pupils are equal, round and reactive to light and accommodation. Ears: No lesions. Nose appeared normal. Throat: No exudate or erythema. NECK: Supple. No JVD, no carotid bruit. No lymphadenopathy or thyromegaly. LUNGS: Decreased breath sounds but clear to auscultation. Percussion note normal. Chest symmetrical. HEART: S1, S2, no S3. No murmurs. No cyanosis or clubbing. No ascites. Pulses: Dorsalis pedis and posterior tibial pulses +1 to +2 bilaterally. ABDOMEN: Soft. Nontender. Bowel sounds active. No CVA tenderness. No mass felt. EXTREMITIES: No edema. Full range of motion of all extremities, equal. NEUROLOGIC: No focal deficit. Cranial nerves II through XII are grossly intact. No headache. No double vision. SKIN: Not dry. Intact. Turgor - normal. LYMPHATIC: No palpable lymph nodes/no lymphedema. MUSCULOSKELETAL: Normal joints with no swelling. Muscle tone is normal. LABS: Hgb 11.5, hct 36, WBC 8,000 normal differential, creatinine 0.6, BUN 14, potassium 4.4. SARS COVID Negative. ASSESSMENT: 1. 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 Chronic lung disease PLAN: 1. 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 The patient advised not to drive until released by hematology/oncologist 3. The patient is going to see Hematology/Oncology on Thursday 4. Advised not to get involved in any activity that could make her fall or have any injury. TIME SPENT: More than 30 minutes. Plan and coordination of the patient's care discussed in the presence of nurse. KULDIP
--- NOTE | 2020-12-24 11:45 | PN ---
DATE OF SERVICE: 12/20/2020 SUBJECTIVE: The patient was seen and examined with the Nurse Practitioner. She is feeling a lot better. The pain is under control. The patient has right upper lobe bronchogenic carcinoma with extension to the chest wall and to T5 parodical and possible invading spinal canal with indenting spinal cord. The patient is to be seen by hematology/oncologist on Thursday. Family is going to drive her home. Advised to follow the consultants she is to be seen by Cardiothoracic surgeon, [employer]/oncologist and neurosurgeon. CONDITION: Stable PROGNOSIS: Poor TIME SPENT: More than 30 minutes. Plan and coordination of the patient's care discussed in the presence of nurse. KULDIP
--- NOTE | 2020-12-24 11:46 | PN ---
12/14/2020: Admission day is Level 5 12/15/2020: Extensive. 12/16/2020: Extensive 12/17/2020: Intermediate 12/18/2020: Intermediate 12/19/2020: Intermediate 12/20/2020: D as in discharge MTDD
--- NOTE | 2020-12-25 11:51 | DS ---
DATE OF SERVICE: 12/20/20 CODE STATUS: DO NOT INTUBATE, CPR ONLY FINAL DIAGNOSIS: 1. RT CHEST WALL PAIN 2. 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 HYPERTENSION 4. COPD WITH HISTORY OF SMOKING 5. HYPONATREMIA 6. SPUTUM CULTURE POSITIVE FOR ACINETOBACTER BAUMANNII COMPLEX HX: 7. DYSLIPIDEMIA 8. DIABETES MELLITUS, TYPE 2 (A1C 6.1 ON 10/29) 9. COPD, WEARS OXYGEN AT NIGHT 10. AGAIN, QUIT SMOKING ABOUT THREE YEARS AGO 11. ANEMIA 12. 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 VITAMIN D DEFICIENCY 14. CAROTID STENOSIS 15. ABNORMAL MAMMOGRAPHY IN 2010, SAW DR. ANN 16. OSTEOPOROSIS REFUSES ANY BISPHOSPHONATES, PROLIA OR ANY TREATMENT AT ALL 17. ANXIETY 18. CHRONIC BACK PAIN 19. SMALL BOWEL OBSTRUCTION 20. HAS HAD BOTH OF HER COVID VACCINES. SECOND MODERNA WAS AUGUST OF 2020 SURGICAL HX: 21. CHOLECYSTECTOMY 22. HYSTERECTOMY 23. BENIGN BREAST BIOPSY 24. LAST COLONOSCOPY WAS IN [address] PEÑALOZA LAST VITALS Temp Pulse Resp BP Pulse Ox 97.9 F 81 18 139/73 97 12/20/20 05:44 12/20/20 05:44 12/20/20 05:44 12/20/20 05:44 12/20/20 09:55 DISCHARGE INSTRUCTIONS: 1. DISCHARGE: HOME TODAY INDEPENDENT WITH ADL'S 2. MD FOLLOW-UP: SEE DR. GUERRA/EVERTON LYONS APRN/TIM MUÑOZ APRN IN THE OFFICE ON DECEMBER 27, 2020 @ 1030 AM. CALL OFFICE IF CONCERNS OR QUESTIONS @ [phone] 3. IF AN EMERGENCY GO TO THE NEAREST EMERGENCY ROOM. 4. AN APPOINTMENT: (TAKE DISC PROVIDED) IS SCHEDULED ON December AT 12:[address] 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 AN APPOINTMENT: (TAKE DISC PROVIDED) IS SCHEDULED WITH DR. YAMILETH CHONG (CARDIOTHORACIC SURGEON) ON December AT 2:30 PM. PLEASE ARRIVE AT 2:15 PM TO COMPLETE PAPERWORK. 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 ALSO TAKE CD WITH X-RAYS ON IT FOR DR. CHONG. THE OFFICE IS LOCATED AT [address] [place] [address] [address]LO[address], PHONE NUMBER: [phone]. 6. INFORMATION AND REQUEST FOR APPOINTMENT: (TAKE DISC PROVIDED )TO [facility], AMOR [facility]NER[facility] STATED WILL CALL PATIENT WITH DATE AND TIME. [address] [place] [address] # 7. OXYGEN: USE BEFORE 2 LITERS A MINUTE PER NASAL CANULA. MEDICATIONS AT DISCHARGE: Albuterol Sulfate (Albuterol Sulfate 0.083% Vial.Jerrod) 2.5 mg NEB RTQ8H [facility] Last Admin: 12/20/20 04:55 Dose: 2.5 mg Alprazolam (Alprazolam 0.25 Mg Tablet) 0.25 mg PO BID [facility] Last Admin: 12/20/20 09:00 Dose: 0.25 mg Aspirin (Aspirin 81 Mg Tablet.) 81 mg PO DAILY [facility] Last Admin: 12/20/20 09:00 Dose: 81 mg Budesonide (Budesonide 0.5 Mg/2 Ml Vial.Jerrod) 0.5 mg NEB RTDAILY [facility] Last Admin: 12/20/20 04:55 Dose: 0.5 mg Diltiazem HCl (Diltiazem Hcl 60 Mg Tablet) 60 mg PO Q12HR [facility] -- ( NEW) Last Admin: 12/20/20 09:01 Dose: 60 mg Losartan Potassium (Losartan Potassium 25 Mg Tablet) 50 mg PO DAILY [facility] ( [facility]) Last Admin: 12/20/20 09:01 Dose: 50 mg Lubiprostone (Lubiprostone 24 Mcg Capsule) 24 mcg PO BID [facility] ( [facility]) Last Admin: 12/20/20 09:01 Dose: 24 mcg Oxycodone/Acetaminophen (Oxycodone/Acetaminophen 7.5/325 Mg Tablet) 1 tab PO Q6HR [facility] ( [facility]) Last Admin: 12/20/20 11:49 Dose: 1 tab Pantoprazole Sodium (Pantoprazole Sodium 40 Mg Tablet.) 40 mg PO QDAC [facility] -- ( [facility]) Last Admin: 12/20/20 05:35 Dose: 40 mg MIRALAX 17 GRAMS IN 8 OZ OF FLUIDS PO DAILY( START 12/21/2020) -- (NEW) LEVAQUIN 250 MG PO DAILY X 5 DAYS, (START 12/21/2020) -- ( NEW) METFORMIN 500 MG PO DAILY ZOCOR 40 MG PO AT BEDTIME NEW PRESCRIPTIONS: MIRALAX 17 GRAMS IN 8 OZ OF FLUIDS PO DAILY( START 12/21/2020) AMITIZA 24 MCG BID PO PERCOCET 7.5 MG PO Q 6 HOURS PRN # 40 LEVAQUIN 250 MG PO DAILY X 5 DAYS, (START 12/21/2020) PROTONIX 40 MG PO AC DAILY ( START 12/21/2020) CARDIZEM 60 MG PO Q 12 HOURS ( START THIS PM AT 900 ) LOSARTAN 50 MG DAILY PO 9 START IN THE AM (12/21/2020) DISCONTINUED MEDICATIONS: Prednisone (Prednisone 10 Mg Tablet) 10 mg PO BID WM BRODERICK HYDROCODONE/ACETAMINOPHEN ( NORCO 5-325 MG ) TABLETS DIET INSTRUCTIONS: REGULAR ACTIVITY: UP TOLERATED WITH FREQUENT REST PERIODS CHANGE POSITIONS SLOWLY STAY IN DOORS WHILE HOT AND HUMID BLEEDING PRECAUTIONS ( ON ASPIRIN, THOUGH RISK IS LOW) FALL PRECAUTIONS FOLLOW PANDEMIC GUIDELINES DO NOT DRIVE WHILE TAKING PAIN MEDICATION, MAY MAKE DROWSY SMOKING: N/A DISEASE SPECIFIC EDUCATION: RESPIRATORY INFECTION LUNG MASS PAIN HYPERTENSION CONSTIPATION PREVENTION COPD MANAGEMENT FALL PRECAUTIONS COVID HOSPITAL COURSE: This is a white female, who presented to the emergency room with right chest wall pain, was found to have right upper lobe lung mass with possible invasion to the chest wall, fifth rib, pedicle of T5 with a probable epidural tumor which was found at T5 which is found after doing an MRI. Blood pressure was elevated systolic in the 200s on admission. She was started on Cardizem 60 mg b.i.d. along with Losartan 50 mg daily. She reports being in extreme pain. She was initially started on Toradol 30 mg IV q.8hr as the Morphine and Dilaudid both made her sick. She had previously taken [place], was started on Percocet 5 mg q.6hr. This was not found to control her pain. We did increase the Percocet to 7.5 q.6hr and she was able to control her pain without having to have Toradol. She will go home on Percocet 7.5 q.6hr p.r.n. She is a former smoker. She smoked at least one pack per day for the past 50 years. She has quit smoking for about 3 years. Her sputum culture was positive for Acinetobacter. She will be sent home on Levaquin 250 mg daily for 5 days. She has upcoming appointments with Dr. Adame to be seen on Thursday then Dr. Yamileth Chong to be seen on Thursday and then a pending appointment with Dr. Solis. We have discussed the likelihood of malignancy. She has been given the disks. Her blood pressure has been controlled, her pain is controlled. We will discharge her in stable condition and followup with her in the office next week. TIME SPENT: More than 60 minutes. KULDIP
== END 2020-12-20 14:50 | disposition home or self-care (01) | DRG 191 ==
LOC: ED 16:04 → MEDSURG A 21:09
PROVIDERS: ADMIT Internal Medicine; ATTEND Internal Medicine
DX: E87.1 Hypo-osmolality and hyponatremia; D64.9 Anemia, unspecified; Z87.891 Personal history of nicotine dependence; R07.89 Other chest pain; I10 Essential (primary) hypertension; Z20.822 Contact with and (suspected) exposure to COVID-19; M15.9 Polyosteoarthritis, unspecified; E78.5 Hyperlipidemia, unspecified; F41.9 Anxiety disorder, unspecified; E11.9 Type 2 diabetes mellitus without complications; J44.9 Chronic obstructive pulmonary disease, unspecified

== ENCOUNTER 2023-02-16 09:58 | Inpatient (IN) ==
[2023-02-16] MEDS ORDERED: SODIUM CHLORIDE 1,000 ML IV STA ×2 (10:03)
[2023-02-16 10:19] LABS: BASOPHILS % (AUTO) 0.4 % (0.0-3.0); EOSINOPHILS # (AUTO) 0.2 K/ul (0.0-0.7); EOSINOPHILS % (AUTO) 2.5 % (0.0-7.0); HEMATOCRIT 38.9 % (37.0-47.0); HEMOGLOBIN 12.7 g/dl (12.0-16.0); IMMATURE GRANULOCYTE % (AUTO) 0.3 % (0.0-5.0); LYMPHOCYTES # (AUTO) 0.8 K/uL (0.60-3.4); LYMPHOCYTES % (AUTO) 11.2 (10.0-50.0); MEAN CORPUSCULAR HEMOGLOBIN 30.9 pg (27.0-31.0); MEAN CORPUSCULAR HGB CONC 32.6 (31.8-35.4); MEAN CORPUSCULAR VOLUME 94.6 fl (81.0-99.0); MONOCYTES # (AUTO) 0.6 K/uL (0.4-2.0); MONOCYTES % (AUTO) 8.1 (0-10); NEUTROPHILS # (AUTO) 5.6 K/ul (2.0-6.9); NEUTROPHILS % (AUTO) 77.5 % (42.2-75.2); PLATELET COUNT 154 10^3/uL (140-440); RDW COEFFICIENT OF VARIATION 11.9 % (11.6-14.8); RED BLOOD COUNT 4.11 10^6/ul (4.20-5.40); WHITE BLOOD COUNT 7.17 K/ul (4.6-10.2)
--- NOTE | 2023-02-16 10:23 | ED.PDOC ---
General ED Provider: Dr. GEORGINA MORAN MD Chief Complaint: Stroke Stated Complaint: This 82 y/o female, who has diabetes mellitus, and who recently ended treatment for lung cancer (still has chest port) comes in for slurred speech and altered mental status that unfortunately has been going on for 3 days. Her son is with her, and reports that she has not had any abnormal limb weakness, facial droop, headache, or recent head trauma but she normally can speak without trouble and is A and O x 4, but these past few days has had "spells" where she mumbles inarticulately, and seems confused. On immediate assessment she scored negative on a Terril Stroke Inventory Scale. Time Seen by Provider: 02/16/23 10:15 Mode of Arrival: Wheelchair Information Source: Patient and Family Exam Limitations: Clinical condition Primary Care Provider: JAN ENGLISH MD Nursing and Triage Documentation Reviewed and Agree: Yes Neurological Complaint Exam Altered Mental Status Complaint/Exam Current Mental Status: Other (Patient seems to go "in and out" of slurring her speech and being confused. ) Last Known Well: last known well is about 3 days ago. Onset: Gradual Symptoms Are: Still present Timing: Intermittent Episodes Lasting: Minutes Initial Severity: Moderate Current Severity: Moderate Eye Deviation Present: No Character: Reports Confusion (intermittant) Aggravating: Reports None Alleviating: Reports None Associated Signs and Symptoms: Denies Dizziness, Weakness, Headache, Fever, Illness (except that she was released from care for lung cancer treatments just a week ago), Nuchal rigidity, Seizure, Nausea, Vomiting, Recently depressed or Trauma Related History: Denies Similar episode Cardiac Risk Factors: Reports Hypertension, Smoking, Diabetes, Elevated lipids, CHF and Family history CVA Risk Factors: Reports Diabetes, Hypertension, Smoking and CAD Carotid Bruit Present: No Nystagmus Present: No Gag Reflex Present: Yes Meningeal Signs Positive: No Focal Weakness: Present None Focal Sensory Loss: Present None Gait: Unsteady [id number]: Normal Findings (slow but normal) Romberg Test Positive: No Signs of Injury: Present Normal findings Thrombolytics Considered: No (last known well 3 days ago - not a candidate) Differential Diagnoses: Intracranial Bleed, Metabolic Disorder, Hypoglycemia, Overdose, Medication reaction, TIA and CVA Review of Systems Review Of Systems Constitutional: Reports No symptoms Eyes: Reports No symptoms Ears, Nose, Mouth, Throat: Reports No symptoms Respiratory: Reports No symptoms Cardiac: Reports No symptoms GI: Reports No symptoms : Reports No symptoms Musculoskeletal: Reports No symptoms Skin: Reports No symptoms Neurological: Reports Cognitive dysfunction Endocrine: Reports No symptoms Hematologic/Lymphatic: Reports No symptoms All Other Systems: Reviewed and Negative [facility] Medical History History of fracture of right hip Z87.81 - Personal history of (healed) traumatic fracture (ICD-10) Hiatal hernia K44.9 - Diaphragmatic hernia without obstruction or gangrene (ICD-10) Atherosclerosis I70.90 - Unspecified atherosclerosis (ICD-10) Osteoporosis M81.0 - Age-related osteoporosis without current pathological fracture (ICD- 10) History of small bowel obstruction Z87.19 - Personal history of other diseases of the digestive system (ICD-10) Hyponatremia E87.1 - Hypo-osmolality and hyponatremia (ICD-10) Family History SISTER Heart disease Diabetes Kidney atrophy Social History Smoking and tobacco status: Former smoker Tobacco: How many years used: 40 Alcohol intake: never Substance use type: does not use Special zane needs: No Agree to transfusion: Yes Adopted: No Caregiver/support person: No Foster care: No Household members: none Housing: house Marital status: W / Lives independently: Yes Number of children: 3 service: No penitentiary: No Current occupational status: retired History of recent travel: Yes (TO [place]) Do you think of yourself as: straight/heterosexual Current gender identity: female Seatbelt use: always Helmet use: No Drives intoxicated or rides with intoxicated cdl driver: No Water heater temperature set < 120 degrees: Yes Working smoke detector in home: Yes Fire extinguisher in home: Yes Carbon monoxide detector in home: Yes Surgical History History of bilateral cataract extraction Z98.41 - Cataract extraction status, right eye (ICD-10) Z98.42 - Cataract extraction status, left eye (ICD-10) History of cholecystectomy Z90.49 - Acquired absence of other specified parts of digestive tract (ICD- 10) History of hand surgery Z98.890 - Other specified postprocedural states (ICD-10) History of breast biopsy Z98.890 - Other specified postprocedural states (ICD-10) History of hysterectomy Z90.710 - Acquired absence of both cervix and uterus (ICD-10) History of tonsillectomy Z90.89 - Acquired absence of other organs (ICD-10) H/O knee surgery Z98.890 - Other specified postprocedural states (ICD-10) Female Reproductive History Menstrual Hx Hysterectomy: Yes Hx Tubal Ligation: No Physical Exam Physical Exam Appearance: Reports Thin and Other (Very sweet but frail elderly white female 82 years of age. Can speak intelligibly for a few minutes, then will start slurring her words, and not making any sense. no other concomitant neurological finding.) Ill-appearing: Mild Pain Distress: None Eyes: Reports JOESPH and EOMI ENT: Reports Ears normal, Nose normal and Oropharynx normal Neck: Supple Respiratory: Reports Airway patent and Breath sounds clear Cardiovascular: Reports RRR and Pulses normal GI/: Reports Soft, Nontender, No masses and Bowel sounds normal Musculoskeletal: Reports Limited ROM and Limited strength Skin: Reports Warm and Dry Neurological: Reports Sensation intact, Motor intact, Reflexes intact, Cranial nerves intact, Alert, Oriented, Alert to verbal and Alert to pain Psychiatric: Reports Affect appropriate Interpretation EKG Interpretation EKG Interpretation By: ED Physician Time of EKG #1: 10:21 Rate: Normal Rhythm: Sinus Ectopy: None [place]: NL ST Segment: Normal Interpretation: NSR with rate = 75 bpm, NM = 190, and no acute ST changes. Critical Care Note Critical Care Note Total Critical Care Time (mins): 0 Course Course 02/16/23 10:14 02/16/23 18:00 Orders, Labs, Meds: Lab Review 02/16/23 02/16/23 02/16/23 10:14 11:30 11:35 WBC 7.17 RBC 4.11 L Hgb 12.7 Hct 38.9 MCV 94.6 MCH 30.9 MCHC 32.6 RDW Coeff of Minh 11.9 Plt Count 154 Immature Gran % (Auto) 0.3 Neut % (Auto) 77.5 H Lymph % (Auto) 11.2 Person % (Auto) 8.1 Eos % (Auto) 2.5 Baso % (Auto) 0.4 Neut # (Auto) 5.6 Lymph # (Auto) 0.8 Person # (Auto) 0.6 Eos # (Auto) 0.2 Baso # (Auto) 0.0 Immature Gran # (Auto) 0.0 PT 10.4 INR 1.00 APTT 32.3 Sodium 122.7 L Potassium 4.20 Chloride 88.2 L Carbon Dioxide 24.3 Anion Gap 14.40 BUN 12.3 Creatinine 0.51 L Estimated GFR (MDRD) 115.00 BUN/Creatinine Ratio 24.11 Glucose 258.6 H Calcium 8.74 Magnesium 1.40 L Total Bilirubin 0.80 AST 31.0 ALT 29.2 Alkaline Phosphatase 79.1 NT-Pro-B Natriuret Pep 562 H Total Protein 7.22 Albumin 4.01 Globulin 3.21 Albumin/Globulin Ratio 1.24 Urine Color Light Urine Clarity Clear Urine pH 7.0 Ur Specific Carlin 1.015 Urine Protein Negative Urine Glucose (UA) 1+ H Urine Ketones Negative Urine Blood Negative Urine Nitrite Negative Urine Bilirubin Negative Urine Urobilinogen 0.2 Ur Leukocyte Esterase 1+ H Urine Microscopic WBC 5-10 Ur Squamous Epith Cells 2-5 SARS CoV-2 RNA Rapid MARIEL Negative Orders Category Date Time Status ADMIT PATIENT INPATIENT .[facility] (MONITORED BED) ADMISSION 02/16/23 11:30 Active EKG-(ED ONLY) Stat CARDIO 02/16/23 10:04 Completed ACTIVITY .Early Mobilization for VTE Prevention CARE 02/16/23 11:36 Active BLOOD GLUCOSE MONITORING (MED/SURG) 0630,1100,1700,2100 CARE 02/16/23 11:37 Active GIVE HS SNACK 2100 CARE 02/16/23 11:37 Active INTAKE & OUTPUT Q8HR CARE 02/16/23 11:36 Active REMINDER: Give Insulin if Needed 0630,1100,1700,2100 CARE 02/16/23 11:36 Active TELEMETRY MONITORING TELE CARE 02/16/23 11:30 Active VITAL SIGNS Q8HR CARE 02/16/23 11:36 Active ADA 1800 SRIDEVI. DIET DIETARY 02/16/23 Lunch Ordered HS SNACK DIETARY 02/16/23 Dinner Ordered ED ACCUCHECK ASSESSMENT .ONCE EMERGENCY 02/16/23 10:04 Active ED APPLY O2 .ONCE EMERGENCY 02/16/23 10:04 Active ED IV/MEDIPORT/POWERPORT .ONCE EMERGENCY 02/16/23 10:04 Active CBC W/ AUTO DIFF DAILY@0600 LAB 02/17/23 06:00 Ordered CBC W/ AUTO DIFF DAILY@0600 LAB 02/18/23 06:00 Ordered CBC W/ AUTO DIFF Stat LAB 02/16/23 10:14 Completed COMPREHENSIVE METABOLIC PANEL DAILY@0600 LAB 02/17/23 06:00 Ordered COMPREHENSIVE METABOLIC PANEL DAILY@0600 LAB 02/18/23 06:00 Ordered COMPREHENSIVE METABOLIC PANEL Stat LAB 02/16/23 10:14 Completed COVID [SARS COV-2 RNA RAPID MARIEL] Stat LAB 02/16/23 11:35 Completed MAGNESIUM Stat LAB 02/16/23 10:14 Completed OSMOLALITY,URINE Stat LAB 02/16/23 10:15 Received PARTIAL THROMBOPLASTIN TIME Stat LAB 02/16/23 10:14 Completed PROBNP ED [NT-PROBNP(ED)] Stat LAB 02/16/23 10:14 Completed PT WITH INR Stat LAB 02/16/23 10:14 Completed SERUM OSMOLALITY Stat LAB 02/16/23 10:15 Received SODIUM,URINE Stat LAB 02/16/23 Ordered URINALYSIS C & S IF INDICATED Stat LAB 02/16/23 11:30 Completed URINE CULTURE Stat LAB 02/16/23 11:30 Received 0.9 % Sodium Chloride [Saline Flush] Meds 02/16/23 10:03 Active 1 syr IVF PRN PRN Acetaminophen [Tylenol] Meds 02/16/23 11:36 Active 650 mg PO Q4H PRN Insulin Regular, Human [Humulin R] Meds 02/16/23 10:53 Discontinued 5 unit SUBCUT ONCE ONE Insulin Regular, Human [Humulin R] Meds 02/16/23 11:36 Active See Protocol SUBCUT PRN PRN Sodium Chloride 0.9% [Sodium Chloride] 1,000 ml Meds 02/16/23 12:00 Active IV 100 mls/hr Sodium Chloride 0.9% [Sodium Chloride] 1,000 ml Meds 02/16/23 10:03 Discontinued IV 30 mls/hr Sodium Chloride 0.9% [Sodium Chloride] 1,000 ml Meds 02/16/23 10:03 Discontinued IV 50 mls/hr CHEST, 1V AP ONLY Stat RADS 02/16/23 10:[address] HEAD W/O CONTRAST Stat RADS 02/16/23 10:04 Completed Medications Generic Name Dose Route Start Last Admin Trade Name Jd PRN Reason Stop Dose Admin Acetaminophen 650 mg 02/16/23 11:36 Acetaminophen 325 Mg Tablet PO Q4H PRN Mild Pain Hydrocodone Bitart/Acetaminophen 1 tab 02/16/23 21:00 02/16/23 21:18 Hydrocodone Bit/Acetaminophen 5/325 Mg Tablet PO Not Given TID BRODERICK Albuterol Sulfate 2.5 mg 02/16/23 16:52 Albuterol Sulfate 0.083% Vial.Neb NEB QID PRN Bronchospasm Alprazolam 0.25 mg 02/16/23 16:52 Alprazolam 0.25 Mg Tablet PO TID PRN Anxiety Aspirin 81 mg 02/17/23 09:00 Aspirin 81 Mg Tablet.Dr PO DAILY BRODERICK Budesonide 0.5 mg 02/16/23 17:00 Budesonide 0.5 Mg/2 Ml Vial.Neb NEB QPM BRODERICK Budesonide/Formoterol Fumarate 2 puff 02/16/23 21:00 02/16/23 21:18 Budesonide/Formoterol Fumarate 160/4.5 Mcg Inhaler IH 2 puff BID BRODERICK Administration Cholecalciferol 2,000 unit 02/17/23 09:00 Cholecalciferol (Vitamin D3) 1,000 Unit (25 Mcg) Tablet PO DAILY BRODERICK Sodium Chloride 1,000 mls @ 100 mls/hr 02/16/23 12:00 02/16/23 21:24 Sodium Chloride IV 100 mls/hr .Q10H BRODERICK Administration Insulin Human Regular 0 unit 02/16/23 11:36 Insulin Regular, Human 100 Unit/Ml (3ml) Vial SUBCUT PRN PRN Hyperglycemia Protocol Losartan Potassium 50 mg 02/17/23 09:00 Losartan Potassium 25 Mg Tablet PO DAILY BRODERICK Propranolol HCl 40 mg 02/17/23 09:00 Propranolol Hcl 20 Mg Tablet PO DAILY BRODERICK Simvastatin 40 mg 02/17/23 09:00 Simvastatin 40 Mg Tablet PO DAILY BRODERICK Sodium Chloride 1 syr 02/16/23 10:03 0.9% Sodium Chloride 10 Ml Disp.Syrin IVF PRN PRN To flush IV Sodium Chloride 1 gm 02/16/23 17:00 02/16/23 21:17 Sodium Chloride 1 Gm Tablet PO 1 gm QID BRODERICK Administration Discontinued Medications Generic Name Dose Route Start Last Admin Trade Name Jd PRN Reason Stop Dose Admin Sodium Chloride 1,000 mls @ 50 mls/hr 02/16/23 10:03 02/16/23 10:19 Sodium Chloride IV 02/17/23 06:02 Not Given .Q20H STA Sodium Chloride 1,000 mls @ 30 mls/hr 02/16/23 10:03 02/16/23 12:15 Sodium Chloride IV 02/17/23 19:22 100 mls/hr .[id number] STA Infusion Magnesium Sulfate/Dextrose 1 gm in 100 mls @ 100 mls/hr 02/16/23 14:43 02/16/23 15:28 Magnesium Sulfate 1 Gm/100 Ml D5w IV 02/16/23 15:42 100 mls/hr ONCE ONE Administration Insulin Human Regular 5 unit 02/16/23 10:53 02/16/23 11:01 Insulin Regular, Human 100 Unit/Ml (3ml) Vial SUBCUT 02/16/23 10:54 5 unit ONCE ONE Administration Losartan Potassium 50 mg 02/16/23 13:30 02/16/23 13:06 Losartan Potassium 25 Mg Tablet PO 02/16/23 13:31 50 mg ONCE ONE Administration Propranolol HCl 40 mg 02/16/23 12:57 02/16/23 13:06 Propranolol Hcl 20 Mg Tablet PO 02/16/23 12:58 40 mg ONCE ONE Administration Vital Signs: Temp Pulse Resp BP Pulse Ox 02/16/23 09:59 99 F 76 17 169/72 H 97 Discharge Plan Discharge Patient Disposition: ADMITTED INPATIENT Discharge Problem: Acute hyponatremia Did you review [place] MANAGER LOCATION for ALL controlled substances?: Not Applicable ED Provider: GEORGINA MORAN Condition: Fair Physician Progress Note: EKG showed NSR with no ST changes, this was read and interpreted by me: Dr. georgina Moran MD []Unfortunately, during exam, patient's son just "left." We could not find him, and he is the POA. Finally he called back about 20 minutes later, saying "I just can't sit there ... I have errands to run." As near as we can figure out, patient is a full code. She has been sent for CT, labs are not yet back. CT shows no acute bleed or intracranial change - this read by radiologist. CMP does show her to have moderate hyponatremia with Na = 122, but the rest of the electrolytes are WNL. Renal function is good with BUN = 12, and CR =0.51. Glucose was slightly elevated = 258, which we did address by giving Humulin R 5 units sub Q. (She had not taken her AM medications) CBC showed no signs of derangement with WBC's = 7.2k, Hgb = 12.7, Hct = 38.9, and Plts = 154k. Vital signs showed a BP = 169/72, P = 76, RR = 17 and Temp = 99degrees oral, and she was 97 % on room air. Possibly then, this could be metabolic considering the hyponatremia. I have called Dr. English's office, and he is out for the next 24 hours, but his PA was in, and was quite knowledgeable about this patient (and was also very nice). She wants the patient admitted, for gentle replacement of Na, which I think a very good idea, also, we will need to see what the urine shows (patient has still not been able to urinate) as a UTI in the elderly can certainly cause altered mental status as well. I called and spoke to Ms Feng cm, ISI, who very kindly accepted the patient. She will go to inpatient services. We will continue hydration with NS to correct the hyponatremia, and await the urinalysis.
[2023-02-16 10:39] LABS: ALANINE AMINOTRANSFERASE 29.2 U/L (0-35); ALBUMIN 4.01 g/dL (3.5-5.0); ALKALINE PHOSPHATASE 79.1 U/L (53-141); BILIRUBIN,TOTAL 0.8 mg/dL (0.2-1.3); BLOOD UREA NITROGEN 12.3 mg/dL (7-17); CALCIUM 8.74 mg/dL (8.4-10.2); CARBON DIOXIDE 24.3 mmol/L (22-30.0); CHLORIDE 88.2 mmol/L (98-107); CREATININE 0.51 mg/dL (0.60-1.30); GLUCOSE 258.6 mg/dL (74-106); POTASSIUM 4.2 mmol/L (3.5-5.1); SODIUM 122.7 mmol/L (134.5-145); TOTAL PROTEIN 7.22 g/dL (6.3-8.2)
--- NOTE | 2023-02-16 10:42 | CT ---
EXAM: CT HEAD WITHOUT CONTRAST HISTORY: Altered level of consciousness COMPARISON: CT head from 12/14/2020 TECHNIQUE: Multi-slice transaxial images are acquired through the head with 2-D reconstructed images . All CT scans are performed using dose optimization techniques as appropriate to the performed exam and includes at least one of the following: Automated exposure control, adjustment of the mA and/or kV according to size, and the use of iterative reconstruction technique. FINDINGS: The midline structures are central. The ventricles and sulci are prominent. The brain at tenuation has a normal stinson-white matter interface. There is low attenuation in the periventricular white matter. No acute intraparenchymal or extraaxial hemorrhage. The calvarium is intact. The paranasal sinuses and mastoid air cells are clear in their visualized portions. IMPRESSION: 1. No acute intracranial process. 2. Small vessel disease and age related involution. . All CT scans are performed using dose optimization techniques as appropriate to the performed exam an d include at least one of the following: Automated exposure control, adjustment of the mA and/or kV according t o size, and the use of iterative reconstruction technique.
[2023-02-16 10:48] LABS: PARTIAL THROMBOPLASTIN TIME 32.3 SEC (23.9-40.0); PROTHROMBIN TIME 10.4 SEC (9.3-11.0)
[2023-02-16] MEDS ORDERED: HUMULIN R SUBCUT ONE (10:53)
--- NOTE | 2023-02-16 11:13 | DI ---
EXAM: CHEST RADIOGRAPH TECHNIQUE: Single frontal chest radiograph. HISTORY: Shortness of breath. History of lung cancer. COMPARISON: 10/13/2022 and older studies. FINDINGS: Right IJ central venous mediport catheter again noted, tip in the SVC. EKG leads project over the ch est. The lungs are hyperexpanded, as before. No pulmonary infiltrate is identified. No pleural effusion or pneumothorax is seen. Heart size is normal. No acute displaced rib fractures are identified. Moderate scoliosis of the thoracolumbar spine, convex to the right, again noted. IMPRESSION: 1. No acute findings in the chest.
[2023-02-16 11:35] LABS: BILIRUBIN,URINE Negative (NEGATIVE); CLARITY,URINE Clear (CLEAR); COLOR,URINE Light (YELLOW); GLUCOSE, URINE (UA) 1+ (NEGATIVE); KETONES,URINE Negative (NEGATIVE); LEUKOCYTE ESTERASE ,URINE 1+ (NEGATIVE); NITRITE,URINE Negative (NEGATIVE); PROTEIN,URINE Negative (NEGATIVE); URINE, BLOOD Negative (NEGATIVE); UROBILINOGEN,URINE 0.2 (0.2)
[2023-02-16] MEDS ORDERED: TYLENOL PO PRN (11:36)
[2023-02-16] MEDS ORDERED: HUMULIN R SUBCUT PRN (11:36)
[2023-02-16 11:52] LABS: SARS COV-2 RNA RAPID NAAT NEGATIVE (NEGATIVE)
[2023-02-16] MEDS ORDERED: INDERAL PO ONE (12:57)
[2023-02-16] MEDS ORDERED: COZAAR PO ONE ×2 (12:57→13:30)
[2023-02-16 13:36] VITALS: BMI 19.3
--- NOTE | 2023-02-16 14:36 | PCM ---
Date of Service Date Seen by Provider: 02/16/23 Admit Day/Time Admission Date: 02/16/23 Reason for Admission Chief Complaint: AMS, HYPONATREMIA Hospital Provider Hospital Provider: ARMANDO TURNER, [facility] Primary Care Physician Primary Care Physician: JAN ENGLISH MD History of Present Illness History of Present Illness: 82 yo female presented to the ER with son for altered mental status. Son reported to ER provider that patient was having episodes of slurred speech this am and weakness. Patient reports that this morning she felt dizzy and just didn't feel like herself. Denies any other symptoms. States she is starting to feel better after receiving fluids in the ER. Denies any fever, chills, N/V/D, chest pain, SOB, or other symptoms. Patient reported that she has taken salt tabs for a long period of time and her PCP told her to stop taking them last week due to normal levels. Case Discussed With Case Discussed With: Patient's case was discussed with the ER Physicians, Dr. Moran. [facility] Medical History History of fracture of right hip Z87.81 - Personal history of (healed) traumatic fracture (ICD-10) Hiatal hernia K44.9 - Diaphragmatic hernia without obstruction or gangrene (ICD-10) Atherosclerosis I70.90 - Unspecified atherosclerosis (ICD-10) Osteoporosis M81.0 - Age-related osteoporosis without current pathological fracture (ICD- 10) History of small bowel obstruction Z87.19 - Personal history of other diseases of the digestive system (ICD-10) Hyponatremia E87.1 - Hypo-osmolality and hyponatremia (ICD-10) Surgical History History of bilateral cataract extraction Z98.41 - Cataract extraction status, right eye (ICD-10) Z98.42 - Cataract extraction status, left eye (ICD-10) History of cholecystectomy Z90.49 - Acquired absence of other specified parts of digestive tract (ICD- 10) History of hand surgery Z98.890 - Other specified postprocedural states (ICD-10) History of breast biopsy Z98.890 - Other specified postprocedural states (ICD-10) History of hysterectomy Z90.710 - Acquired absence of both cervix and uterus (ICD-10) History of tonsillectomy Z90.89 - Acquired absence of other organs (ICD-10) H/O knee surgery Z98.890 - Other specified postprocedural states (ICD-10) Family History SISTER Heart disease Diabetes Kidney atrophy Social History Smoking and tobacco status: Former smoker Tobacco: How many years used: 40 Alcohol intake: never Substance use type: does not use Special zane needs: No Agree to transfusion: Yes Adopted: No Caregiver/support person: No Foster care: No Household members: none Housing: house Marital status: W / Lives independently: Yes Number of children: 3 service: No MCFP: No Current occupational status: retired History of recent travel: Yes (TO [place]) Do you think of yourself as: straight/heterosexual Current gender identity: female Seatbelt use: always Helmet use: No Drives intoxicated or rides with intoxicated bung driver: No Water heater temperature set < 120 degrees: Yes Working smoke detector in home: Yes Fire extinguisher in home: Yes Carbon monoxide detector in home: Yes Allergies Allergies Allergy/AdvReac Type Severity Reaction Status Date / Time No Known Allergies Allergy Verified 02/16/23 10:06 Current Medications Home Medications aspirin 81 mg tablet,delayed release (Adult Low Dose Aspirin) 81 mg PO DAILY 11/01/18 [History Confirmed 02/04/23 Last Taken 12/13/20] budesonide-formoterol HFA 160 mcg-4.5 mcg/actuation aerosol inhaler (Symbicort) 2 puff inhalation BID J44.9 07/04/22 [History Confirmed 02/04/23 Last Taken Unknown] cholecalciferol (vitamin D3) 50 mcg (2,000 unit) capsule 50 mcg PO QDAY 10/03/22 [History Confirmed 02/04/23 Last Taken Unknown] losartan 50 mg tablet See Rx Instructions .Route .COMPLEX #30 tabs 11/24/22 [Rx Confirmed 02/04/23 Last Taken Unknown] propranolol 40 mg tablet See Rx Instructions .Route .COMPLEX #30 tabs 11/24/22 [Rx Confirmed 02/04/23 Last Taken Unknown] simvastatin 40 mg tablet See Rx Instructions .Route .COMPLEX #30 tabs 11/24/22 [Rx Confirmed 02/04/23 Last Taken Unknown] albuterol sulfate 2.5 mg/3 mL (0.083 %) solution for nebulization See Rx Instructions .Route .COMPLEX J44.9 #375 ea 12/02/22 [Rx Confirmed 02/04/23 Last Taken Unknown] budesonide 0.5 mg/2 mL suspension for nebulization 0.5 mg (2 mL) NEB RTDAILY J44.9 #30 mL 12/02/22 [Rx Confirmed 02/04/23 Last Taken Unknown] metformin 500 mg tablet See Rx Instructions .Route .COMPLEX #90 tabs 12/24/22 [Rx Confirmed 02/04/23 Last Taken Unknown] alprazolam 0.25 mg tablet 0.25 mg PO TID PRN anxiety #90 tabs 01/26/23 [Rx Confirmed 02/04/23 Last Taken Unknown] hydrocodone 5 mg-acetaminophen 325 mg tablet 1 tab PO TID #90 tabs 01/26/23 [Rx Confirmed 02/04/23 Last Taken Unknown] cefdinir 300 mg capsule 300 mg PO BID #20 caps 02/04/23 [Rx Confirmed 02/04/23 Last Taken Unknown] prednisone 10 mg tablet 10 mg PO BID #10 tabs 02/04/23 [Rx Confirmed 02/04/23 Last Taken Unknown] Home Acetaminophen (Acetaminophen 325 Mg Tablet) 650 mg PO Q4H PRN PRN Reason: Mild Pain Sodium Chloride (Sodium Chloride) 1,000 mls @ 30 mls/hr IV .[id number] STA Stop: 02/17/23 19:22 Last Infusion: 02/16/23 12:15 Dose: 100 mls/hr Sodium Chloride (Sodium Chloride) 1,000 mls @ 100 mls/hr IV .Q10H [place] Magnesium Sulfate/Dextrose (Magnesium Sulfate 1 Gm/100 Ml D5w) 1 gm in 100 mls @ 100 mls/hr IV ONCE ONE Stop: 02/16/23 15:42 Insulin Human Regular (Insulin Regular, Human 100 Unit/Ml (3ml) Vial) 0 unit SUBCUT PRN PRN; Protocol PRN Reason: Hyperglycemia Sodium Chloride (0.9% Sodium Chloride 10 Ml Disp.Syrin) 1 syr IVF PRN PRN PRN Reason: To flush IV Discontinued Medications Sodium Chloride (Sodium Chloride) 1,000 mls @ 50 mls/hr IV .Q20H STA Stop: 02/17/23 06:02 Last Admin: 02/16/23 10:19 Dose: Not Given Insulin Human Regular (Insulin Regular, Human 100 Unit/Ml (3ml) Vial) 5 unit SUBCUT ONCE ONE Stop: 02/16/23 10:54 Last Admin: 02/16/23 11:01 Dose: 5 unit Losartan Potassium (Losartan Potassium 25 Mg Tablet) 50 mg PO ONCE ONE Stop: 02/16/23 13:31 Last Admin: 02/16/23 13:06 Dose: 50 mg Propranolol HCl (Propranolol Hcl 20 Mg Tablet) 40 mg PO ONCE ONE Stop: 02/16/23 12:58 Last Admin: 02/16/23 13:06 Dose: 40 mg Review of Systems Constitutional: Reports Weakness Head: Reports Normocephalic and Atraumatic Eyes: Reports No symptoms Ears: Reports No symptoms Nose: Reports No symptoms Mouth: Reports No symptoms Throat: Reports No symptoms Cardiovascular: Reports No symptoms Respiratory: Reports No symptoms Gastrointestinal: Reports No symptoms Genitourinary: Reports No Symptoms Musculoskeletal: Reports No symptoms Endocrine: Reports No symptoms Hematology: Reports No symptoms Immunology: Reports No symptoms Neurological: Reports Dizziness and Other ("Feeling weird") Psychiatric: Reports No symptoms Physical examination Most Recent Vital Signs: Most Recent Vital Signs Temperature 98.1 F 02/16/23 13:56 Temperature Source Oral 02/16/23 13:56 Temperature Source Infrared 02/16/23 09:59 Pulse Rate 84 02/16/23 13:56 Respiratory Rate 18 02/16/23 13:56 Blood Pressure 209/80 H 02/16/23 13:56 Blood Pressure Mean 123 02/16/23 13:56 Blood Pressure Location Right Arm 02/16/23 13:56 Blood Pressure Position Supine 02/16/23 13:56 O2 Sat by Pulse Oximetry 96 02/16/23 13:56 Oxygen Delivery Method Room Air 02/16/23 13:56 Height 5 ft 3 in 02/16/23 13:21 Weight 109 lb 3.2 oz 02/16/23 13:21 Telemetry Type Remote Telemetry 02/16/23 14:01 Telemetry Monitoring Started 02/16/23 14:01 Telemetry Heart Rate 73 02/16/23 14:01 EKG DC Interval 0.20 02/16/23 14:01 EKG QRS Interval 0.05 L 02/16/23 14:01 Telemetry Strip Reading SR 02/16/23 14:01 Appearance: Positive No Apparent Distress, Alert and Oriented x3 and Thin Skin: Positive Warm, Good Turgor and Good Color HEENT: Positive Normocephalic and PERRLA Neck: Positive Supple and Midline Trachea Chest/Lungs: Positive Symmetrical With Equal Breath Sounds, Clear to Auscultation Bilaterally and Good Air Movement all 4 Lung Perez Heart: Positive RRR, Pulses Normal, No S3 Auscultated and No S4 Auscultated GI/: Positive Soft, Nontender and Bowel Sounds Normal Musculoskeletal: Positive Not Examined Extremities: Positive Intact Peripheral Pulses, Stable Joints Without Laxity and Good ROM in All Joints Neurological: Positive Sensation Intact, Motor intact, Reflexes Intact, Alert, Oriented and Other (generalized weakness) Psychiatric: Positive Oriented x4, Appropriate Mood and Appropriate Affect Labs This Visit Labs This Visit: Labs This Visit 02/16/23 02/16/23 02/16/23 10:14 11:30 11:35 WBC 7.17 RBC 4.11 L Hgb 12.7 Hct 38.9 MCV 94.6 MCH 30.9 MCHC 32.6 RDW Coeff of Minh 11.9 Plt Count 154 Immature Gran % (Auto) 0.3 Neut % (Auto) 77.5 H Lymph % (Auto) 11.2 [place] % (Auto) 8.1 Eos % (Auto) 2.5 Baso % (Auto) 0.4 Neut # (Auto) 5.6 Lymph # (Auto) 0.8 [place] # (Auto) 0.6 Eos # (Auto) 0.2 Baso # (Auto) 0.0 Immature Gran # (Auto) 0.0 PT 10.4 INR 1.00 APTT 32.3 Sodium 122.7 L Potassium 4.20 Chloride 88.2 L Carbon Dioxide 24.3 Anion Gap 14.40 BUN 12.3 Creatinine 0.51 L Estimated GFR (MDRD) 115.00 BUN/Creatinine Ratio 24.11 Glucose 258.6 H Calcium 8.74 Magnesium 1.40 L Total Bilirubin 0.80 AST 31.0 ALT 29.2 Alkaline Phosphatase 79.1 NT-Pro-B Natriuret Pep 562 H Total Protein 7.22 Albumin 4.01 Globulin 3.21 Albumin/Globulin Ratio 1.24 Urine Color Light Urine Clarity Clear Urine pH 7.0 Ur Specific [place] 1.015 Urine Protein Negative Urine Glucose (UA) 1+ H Urine Ketones Negative Urine Blood Negative Urine Nitrite Negative Urine Bilirubin Negative Urine Urobilinogen 0.2 Ur Leukocyte Esterase 1+ H Urine Microscopic WBC 5-10 Ur Squamous Epith Cells 2-5 SARS CoV-2 RNA Rapid MARIEL Negative Imaging Imaging: EXAM: CT HEAD WITHOUT CONTRAST HISTORY: Altered level of consciousness COMPARISON: CT head from 12/14/2020 TECHNIQUE: Multi-slice transaxial images are acquired through the head with 2-D reconstructed images. All CT scans are performed using dose optimization techniques as appropriate to the performed exam and includes at least one of the following: Automated exposure control, adjustment of the mA and/or kV according to size, and the use of iterative reconstruction technique. FINDINGS: The midline structures are central. The ventricles and sulci are prominent. The brain attenuation has a normal stinson-white matter interface. There is low attenuation in the periventricular white matter. No acute intraparenchymal or extraaxial hemorrhage. The calvarium is intact. The paranasal sinuses and mastoid air cells are clear in their visualized portions. IMPRESSION: 1. No acute intracranial process. 2. Small vessel disease and age related involution. EXAM: CHEST RADIOGRAPH TECHNIQUE: Single frontal chest radiograph. HISTORY: Shortness of breath. History of lung cancer. COMPARISON: 10/13/2022 and older studies. FINDINGS: Right IJ central venous mediport catheter again noted, tip in the SVC. EKG leads project over the chest. The lungs are hyperexpanded, as before. No pulmonary infiltrate is identified. No pleural effusion or pneumothorax is seen. Heart size is normal. No acute displaced rib fractures are identified. Moderate scoliosis of the thoracolumbar spine, convex to the right, again noted. IMPRESSION: 1. No acute findings in the chest. Review Statement Review Statement: I have independently reviewed and interpreted the labs/EKGs/imaging that were ordered by the ER provider. I have reviewed all outside records that are available currently in our EMR including imaging/notes/labs from previous visits. Plan Plan: 1. Acute on Chronic Hyponatremia - checking osmolalities and urine sodium, NS@100mL/hr, restart salt tabs QID, telemetry 2. Acute Metabolic Encephalopathy in setting of Hyponatremia - Improving, oriented x 3 upon my exam, urinalysis negative, monitor 3. Hypomagnesemia - mild, replace and monitor 4. Hypertension - uncontrolled at this time, has not taken home medications today - given in ER, repeat BP and will re-eval, continue home medications 5. Diabetes Mellitus, Type 2 - ADA diet, accuchecks QID with SSI - mod scale, hold oral medications 6. COPD - chronic, stable, not in exacerbation, monitor DVT Prophylaxis: Ambulation Time Spent: Greater than 80 minutes spent with patient, 50% of the time spent with this patient was devoted to counseling and coordination of care. Advanced [facility] Plannin minutes spent discussing advance care planning. Disposition: Admit to: Med/surg Inpatient DNI, CPR Only Discussed Plan of Care with Dr. Pete English. Medications Medication Orders: Medications Ordered Category Date Time Status 0.9 % Sodium Chloride [Saline Flush] Meds 02/16/23 10:03 Active 1 syr IVF PRN PRN Acetaminophen [Tylenol] Meds 02/16/23 11:36 Active 650 mg PO Q4H PRN Insulin Regular, Human [Humulin R] Meds 02/16/23 11:36 Active See Protocol SUBCUT PRN PRN Sodium Chloride 0.9% [Sodium Chloride] 1,000 ml Meds 02/16/23 12:00 Active IV 100 mls/hr Sodium Chloride 0.9% [Sodium Chloride] 1,000 ml Meds 02/16/23 10:03 Active IV 30 mls/hr
[2023-02-16] MEDS ORDERED: MAGNESIUM SULFATE 1 GM/100 ML D5W 1 GM/100 ML BAG IV ONE (14:43)
[2023-02-16] MEDS: SODIUM CHLORIDE PO SCH ×2 (16:38→21:17)
[2023-02-16] MEDS ORDERED: XANAX PO PRN (16:52)
[2023-02-16] MEDS ORDERED: ALBUTEROL 0.083% NEB NEB PRN (16:52)
[2023-02-16] MEDS ORDERED: PULMICORT 0.5 MG/2 ML NEB SCH (17:00)
[2023-02-16 18:18] LABS: BLOOD UREA NITROGEN 10.8 mg/dL (7-17); CALCIUM 8.61 mg/dL (8.4-10.2); CARBON DIOXIDE 26.7 mmol/L (22-30.0); CHLORIDE 89.8 mmol/L (98-107); CREATININE 0.49 mg/dL (0.60-1.30); GLUCOSE 132.4 mg/dL (74-106); POTASSIUM 4.29 mmol/L (3.5-5.1); SODIUM 124.8 mmol/L (134.5-145)
[2023-02-16] MEDS: SYMBICORT 160-4.5 MCG INHALER IH SCH (21:18)
[2023-02-16] MEDS: NORCO 5-325 PO SCH (21:18)
[2023-02-16] MEDS: SODIUM CHLORIDE 1,000 ML IV SCH ×2 (21:23→21:24)
[2023-02-17 05:23] LABS: BASOPHILS % (AUTO) 0.5 % (0.0-3.0); EOSINOPHILS # (AUTO) 0.1 K/ul (0.0-0.7); EOSINOPHILS % (AUTO) 2.3 % (0.0-7.0); HEMATOCRIT 35.9 % (37.0-47.0); HEMOGLOBIN 11.4 g/dl (12.0-16.0); IMMATURE GRANULOCYTE % (AUTO) 0.5 % (0.0-5.0); LYMPHOCYTES # (AUTO) 0.8 K/uL (0.60-3.4); LYMPHOCYTES % (AUTO) 13.2 (10.0-50.0); MEAN CORPUSCULAR HEMOGLOBIN 30.4 pg (27.0-31.0); MEAN CORPUSCULAR HGB CONC 31.8 (31.8-35.4); MEAN CORPUSCULAR VOLUME 95.7 fl (81.0-99.0); MONOCYTES # (AUTO) 0.8 K/uL (0.4-2.0); MONOCYTES % (AUTO) 12.7 (0-10); NEUTROPHILS # (AUTO) 4.4 K/ul (2.0-6.9); NEUTROPHILS % (AUTO) 70.8 % (42.2-75.2); PLATELET COUNT 152 10^3/uL (140-440); RDW COEFFICIENT OF VARIATION 12.2 % (11.6-14.8); RED BLOOD COUNT 3.75 10^6/ul (4.20-5.40); WHITE BLOOD COUNT 6.22 K/ul (4.6-10.2)
[2023-02-17 05:35] LABS: ALANINE AMINOTRANSFERASE 24.6 U/L (0-35); ALBUMIN 3.42 g/dL (3.5-5.0); ALKALINE PHOSPHATASE 71.8 U/L (53-141); ASPARTATE AMINO TRANSFERASE 48.6 U/L (14-36); BILIRUBIN,TOTAL 0.65 mg/dL (0.2-1.3); BLOOD UREA NITROGEN 6.6 mg/dL (7-17); CALCIUM 8.46 mg/dL (8.4-10.2); CHLORIDE 98.2 mmol/L (98-107); CREATININE 0.45 mg/dL (0.60-1.30); GLUCOSE 108.5 mg/dL (74-106); MAGNESIUM 1.74 mg/dL (1.6-2.3); POTASSIUM 3.85 mmol/L (3.5-5.1); SODIUM 129.9 mmol/L (134.5-145); TOTAL PROTEIN 6.41 g/dL (6.3-8.2)
[2023-02-17 05:38] VITALS: BP 127/62; TEMP 98.7
[2023-02-17] MEDS: SODIUM CHLORIDE 1,000 ML IV SCH (07:18)
[2023-02-17] MEDS: SYMBICORT 160-4.5 MCG INHALER IH SCH (08:38)
[2023-02-17] MEDS: SODIUM CHLORIDE PO SCH (08:39)
[2023-02-17] MEDS: NORCO 5-325 PO SCH (08:39)
[2023-02-17 08:53] VITALS: PULSE 65; RESP 16
[2023-02-17] MEDS ORDERED: COZAAR PO SCH (09:00)
[2023-02-17] MEDS ORDERED: INDERAL PO SCH (09:00)
[2023-02-17] MEDS ORDERED: VITAMIN D PO SCH (09:00)
[2023-02-17] MEDS ORDERED: ZOCOR PO SCH (09:00)
[2023-02-17] MEDS ORDERED: ASPIRIN EC PO SCH ×2 (09:00)
--- NOTE | 2023-02-17 11:56 | DCSUM ---
Admission Date Admission Date: 02/16/23 Discharge Date Discharge Date: 02/17/23 Admission Diagnosis Admission Diagnosis: 1. Acute on Chronic Hyponatremia 2. Acute Metabolic Encephalopathy in setting of Hyponatremia 3. Hypomagnesemia 4. Hypertension 5. Diabetes Mellitus, Type 2 6. COPD Discharge Diagnosis Discharge Diagnosis: 1. Acute on Chronic Hyponatremia - Resolved, at baseline level 2. Acute Metabolic Encephalopathy in setting of Hyponatremia - Resolved 3. Hypomagnesemia - Resolved 4. Hypertension - Stable 5. Diabetes Mellitus, Type 2 - Stable 6. COPD - Stable Hospital Provider Hospital Provider[facility], [facility] Primary Care Physician Primary Care Physician: JAN ENGLISH MD Summary of History and Physical Summary of History and Physical: 82 yo female presented to the ER with son for altered mental status. Son reported to ER provider that patient was having episodes of slurred speech this am and weakness. Patient reports that this morning she felt dizzy and just didn't feel like herself. Denies any other symptoms. States she is starting to feel better after receiving fluids in the ER. Denies any fever, chills, N/V/D, chest pain, SOB, or other symptoms. Patient reported that she has taken salt tabs for a long period of time and her PCP told her to stop taking them last week due to normal levels. Hospital Course Subjective: Her hyponatremia was treated with NS@100mL/hr and salt tabs were restarted. Sodium increased from 122 up to 130 this am. Patient states she is feeling more like herself this am and son in room reports she is back to normal as well. Osmolalities were collected and send outs. Reports will be sent to PCP. Magnesium was found to be slightly low at 1.4 and increased to 1.7 with replacement given yesterday. All home medications were continued and unchanged. Discussed with patient to restart taking her salt tabs at home as previously prescribed. Appearance: Pleasant, No Apparent Distress, Alert and Well-appearing HEENT: MMM and Supple CVS: No Murmur and No Rubs Abdomen: Soft, Non-Tender and No Distention Respiratory: No Dyspnea Extremities: No Edema and No Calf Tenderness Vital Signs: Most Recent Vital Signs Temperature 98.7 F 02/17/23 05:34 Temperature Source Temporal Artery Scan 02/17/23 05:34 Temperature Source Infrared 02/16/23 09:59 Pulse Rate 65 02/17/23 08:00 Respiratory Rate 16 02/17/23 08:00 Blood Pressure 127/62 02/17/23 05:34 Blood Pressure Mean 83 02/17/23 05:34 Blood Pressure Location Left Arm 02/17/23 05:34 Blood Pressure Position Supine 02/17/23 05:34 O2 Sat by Pulse Oximetry 93 L 02/17/23 05:34 Oxygen Delivery Method Room Air 02/17/23 08:00 Height 5 ft 3 in 02/16/23 13:21 Weight 109 lb 3.2 oz 02/16/23 13:21 Telemetry Type Remote Telemetry 02/17/23 07:00 Telemetry Monitoring Continues 02/17/23 07:00 Telemetry Heart Rate 64 02/17/23 07:00 EKG MA Interval 0.2 02/17/23 07:00 EKG QRS Interval 0.07 02/17/23 07:00 EKG QT Interval 0.41 H 02/17/23 01:00 Telemetry Strip Reading SR with AVB 02/17/23 07:00 Lab Results Last 24 Hours: 02/17/23 02/16/23 02/16/23 05:11 18:00 11:35 WBC 6.22 RBC 3.75 L Hgb 11.4 L Hct 35.9 L MCV 95.7 MCH 30.4 MCHC 31.8 RDW Coeff of Minh 12.2 Plt Count 152 Immature Gran % (Auto) 0.5 Neut % (Auto) 70.8 Lymph % (Auto) 13.2 [place] % (Auto) 12.7 H Eos % (Auto) 2.3 Baso % (Auto) 0.5 Neut # (Auto) 4.4 Lymph # (Auto) 0.8 [place] # (Auto) 0.8 Eos # (Auto) 0.1 Baso # (Auto) 0.0 Immature Gran # (Auto) 0.0 Sodium 129.9 L 124.8 L Potassium 3.85 4.29 Chloride 98.2 89.8 L Carbon Dioxide 27.0 26.7 Anion Gap 8.55 12.59 BUN 6.6 L 10.8 Creatinine 0.45 L 0.49 L Estimated GFR (MDRD) 133.00 121.00 BUN/Creatinine Ratio 14.66 22.04 Glucose 108.5 H 132.4 H D Calcium 8.46 8.61 Magnesium 1.74 Total Bilirubin 0.65 AST 48.6 H ALT 24.6 Alkaline Phosphatase 71.8 Total Protein 6.41 Albumin 3.42 L Globulin 2.99 Albumin/Globulin Ratio 1.14 SARS CoV-2 RNA Rapid MARIEL Negative Discharge Instructions Discharge Planning: Discharge Planning > 40 minutes If patient is discharged with left ventricular systolic dysfunction: NA Discharged with a beta georgiana? [] If no, why not? [] Discharged with an michael/arb? [] If no, why not? [] Start taking sodium chloride tablets as previously prescribed by Dr. Cecile English. Regular diet Activity as tolerated YOU HAVE A HOSPITAL FOLLOW UP APPOINTMENT WITH DR. COOK OFFICE ON February AT 8:40AM. SHOULD YOU HAVE ANY QUESTIONS OR NEED TO RESCHEDULE YOU CAN CONTACT THEIR OFFICE AT [phone]. Discharge Medications: Medications at Discharge (Home Meds & RX) aspirin 81 mg tablet,delayed release (Adult Low Dose Aspirin) 81 mg PO DAILY 11/01/18 budesonide-formoterol HFA 160 mcg-4.5 mcg/actuation aerosol inhaler (Symbicort) 2 puff inhalation BID J44.9 07/04/22 cholecalciferol (vitamin D3) 50 mcg (2,000 unit) capsule 50 mcg PO QDAY 10/03/22 losartan 50 mg tablet See Rx Instructions .Route .COMPLEX #30 tabs 11/24/22 propranolol 40 mg tablet See Rx Instructions .Route .COMPLEX #30 tabs 11/24/22 simvastatin 40 mg tablet See Rx Instructions .Route .COMPLEX #30 tabs 11/24/22 albuterol sulfate 2.5 mg/3 mL (0.083 %) solution for nebulization See Rx Instructions .Route .COMPLEX J44.9 #375 ea 12/02/22 metformin 500 mg tablet See Rx Instructions .Route .COMPLEX #90 tabs 12/24/22 alprazolam 0.25 mg tablet 0.25 mg PO TID PRN anxiety #90 tabs 01/26/23 hydrocodone 5 mg-acetaminophen 325 mg tablet 1 tab PO TID #90 tabs 01/26/23 budesonide 0.5 mg/2 mL suspension for nebulization 0.5 mg NEB QPM J44.9 02/16/23 sodium chloride 1,000 mg soluble tablet 1,000 mg PO QID #30 tabs 02/17/23 Discharge Plan Discharge Discharge Orders: Discharge Patient (ONCE); Ordered 02/17/23 Ordered By: CHANNING GOLDSTEIN Activity Restrictions/Additional Instructions: Start taking sodium chloride tablets as previously prescribed by Dr. Cecile English. Regular diet Activity as tolerated YOU HAVE A HOSPITAL FOLLOW UP APPOINTMENT WITH DR. COOK OFFICE ON February AT 8:40AM. SHOULD YOU HAVE ANY QUESTIONS OR NEED TO RESCHEDULE YOU CAN CONTACT THEIR OFFICE AT [phone]. Instructions: Hyponatremia (GEN) Care Plan Goals: Problem: Fluid and electrolyte imbalance Goal: Maintain fluid and electrolyte balance Instructions: Monitor I/O as needed Obtain labs related to electrolytes Patient Disposition: HOME WITH FAMILY CARE Prescriptions: New sodium chloride 1,000 mg Tablet,Soluble 1,000 mg PO QID Qty: 30 0RF Continued losartan 50 mg tablet See Rx Instructions .ROUTE .COMPLEX Qty: 30 2RF Dose Instruction: TAKE ONE TABLET DAILY Rx Instructions: TAKE ONE TABLET DAILY propranolol 40 mg tablet See Rx Instructions .ROUTE .COMPLEX Qty: 30 2RF Dose Instruction: TAKE ONE TABLET DAILY Rx Instructions: TAKE ONE TABLET DAILY simvastatin 40 mg tablet See Rx Instructions .ROUTE .COMPLEX Qty: 30 2RF Dose Instruction: TAKE ONE TABLET DAILY Rx Instructions: TAKE ONE TABLET DAILY metformin 500 mg tablet See Rx Instructions .ROUTE .COMPLEX Qty: 90 1RF Hold Instructions: SSI Dose Instruction: TAKE ONE TABLET DAILY Rx Instructions: TAKE ONE TABLET DAILY hydrocodone-acetaminophen 5-325 mg tablet 1 tab PO TID Qty: 90 0RF alprazolam 0.25 mg tablet 0.25 mg PO TID PRN (Reason: anxiety) Qty: 90 1RF aspirin [Adult Low Dose Aspirin] 81 MG tablet,delayed release (DR/EC) 81 mg PO DAILY budesonide 0.5 mg/2 mL suspension for nebulization 0.5 mg NEB QPM budesonide-formoterol [Symbicort] 160-4.5 mcg/actuation HFA aerosol inhaler 2 puff inhalation BID cholecalciferol (vitamin D3) 50 mcg (2,000 unit) capsule 50 mcg PO QDAY albuterol sulfate 2.5 mg /3 mL (0.083 %) solution for nebulization See Rx Instructions .ROUTE .COMPLEX Qty: 375 5RF Dose Instruction: USE 1 VIAL IN NEBULIZER FOUR TIMES DAILY Rx Instructions: USE 1 VIAL IN NEBULIZER FOUR TIMES DAILY J44.9 Did you review [place] ACCOUNTANT CONTROLLER for ALL controlled substances?: No Discussed opioids are addictive and Narcan is available by prescription or from pharmacy.: No Condition: Fair
[2023-02-18 06:22] LABS: OSMOLALITY,URINE 260 mOsmol/kg (.)
[2023-02-18 08:39] LABS: SERUM OSMOLALITY 262 mOsmol/kg (280-301)
== END 2023-02-17 11:04 | disposition home or self-care (01) | DRG 640 ==
LOC: ED 09:58 → MEDSURG B 12:56
PROVIDERS: ADMIT Hospitalist; ATTEND Nurse Practitioner Family
DX: E87.1 Hypo-osmolality and hyponatremia; R53.1 Weakness; G93.41 Metabolic encephalopathy; I11.0 Hypertensive heart disease with heart failure; F17.210 Nicotine dependence, cigarettes, uncomplicated; R42 Dizziness and giddiness; I25.10 Atherosclerotic heart disease of native coronary artery without angina pectoris; J44.9 Chronic obstructive pulmonary disease, unspecified; E83.42 Hypomagnesemia; E11.9 Type 2 diabetes mellitus without complications; Z20.822 Contact with and (suspected) exposure to COVID-19